=== PATIENT | male | born 1940 | race Caucasian/White ===

== ENCOUNTER 2020-08-13 09:24 | Observation (INO) ==
--- NOTE | 2020-08-13 09:44 | Emergency Department Note ---
Impression & Plan Abdominal pain, lower, Constipation, Proctitis ED Provider Note INFORMANT: Patient ED PROVIDER(S): Yuri Lindquist MD CHIEF COMPLAINT: Lower abdominal pain PLAN: Disposition: Admitted Condition: Good Outpatient prescription management: none Referral: None MEDICAL DECISION MAKING: Patient presented due to severe abdominal pain. He also noted constipation. He was given a dose of IV fentanyl. Blood work was obtained. He was found to have an unremarkable CBC and chemistry panel. He was sent for CT imaging and was found to have severe fecal retention. Subtle signs of a stercoral proctitis. The patient underwent a manual disimpaction by me. The patient was very uncomfortable. He did receive a second dose of IV fentanyl for this. I did use some viscous lidocaine in addition to the surgical lube. This helped well with his pain. After the disimpaction he underwent a soapsuds enema. The patient did not have much result. A second enema was given. He was complaining of mild amount of rectal pain. He did receive an additional dose of IV fentanyl. Unfortunately a second enema was minimally successful. He was still very uncomfortable. I discussed possible management options with him. Given the level of discomfort and lack of success with the enemas inpatient treatment was recommended and patient was in agreement. He was still complaining of continued lower abdominal pain and rectal pain. He was given a dose of IV Dilaudid. Consultation was made with the [facility]. The patient was evaluated by the team in the ER and admitted for further management. Triage Nursing notes reviewed and agree them. Vital Signs: reviewed and remarkable for no significant abnormalities Additional history obtained from the patient's . Differential diagnosis: Functional constipation, impaction, obstruction, volvulus, metabolic abnormality, infection, neurologic, as well as other pathologies. Diagnostics interpreted by me: ECG: Rate: 69 Rhythm:Normal sinus [place]:Normal QRS:Normal ST segements:No elevation or depression Other:No PACs or PVCs Cardiac Monitoring: Cardiac monitoring ordered by me: The patient was placed on continuous cardiac monitoring and observed. It revealed a normal sinus rhythm at 75 beats per minute without ectopy or evidence of dysrhythmia. Imaging studies: CT scan the abdomen pelvis reveals severe fecal retention and constipation. Postsurgical changes noted. I refer you to the EMR for further details. HPI: The patient is a 80 year old male who presents to the Emergency Room with complaints of lower abdominal pain. This started a week ago and is worsening over the last two days. The patient also notes the following associated symptoms, constipation. The patient has found no relieving factors. Current pain is rated as 8/10. EMS gave 4mg of zofran and 15mg of toradol with minimal effect. Pt denies LOC, headache, fevers, chills, diaphoresis, visual changes, neck pain, chest pain, breathing difficulties, nausea, vomiting, back pain, melena, hematochezia, urinary symptoms, numbness, weakness, lymphadenopathy, rash, or other complaints. ROS: See above HPI for pertinent positives & negatives. A total of 10 systems reviewed and were otherwise negative. PAST MEDICAL HISTORY:See Below , crohn's, [place] PAST SURGICAL HISTORY:See Below, colon resection FAMILY HISTORY:See Below SOCIAL HISTORY:See Below, quit smoking HOME MEDICATIONS:See Below ALLERGIES:See Below VITALS:See Below PHYSICAL EXAMINATION: GENERAL: Awake, alert, uncomfortable-appearing, in no distress HENT: Normocephalic, atraumatic. Oropharynx unremarkable. EYES: Normal conjunctiva. Sclera non-icteric. NECK: Inspection normal. Non-tender. Supple. No nuchal rigidity. FROM. No masses. RESPIRATORY: Clear to auscultation. No wheezes. No rales. Normal respiratory effort. CARDIAC: Normal rate. Normal rhythm. No murmurs. No rubs. Extremities warm and well perfused. Pulses equal. No JVD. GI: Soft, mildly distended. Lower tenderness to palpation. No rebound or guarding. No masses. RECTAL: Deferred. MUSCULOSKELETAL: Atraumatic. Chest examination reveals no tenderness. The back is symmetrical on inspection without obvious abnormality. There is no CVA tenderness to palpation. No joint edema. LOWER EXTREMITIES: Calves are equal size bilaterally and non-tender. No edema. No discoloration. NEURO: Normal sensorium. No sensory or motor deficits noted. SKIN: No rash or jaundice noted. PROCEDURE: Disimpaction: Risks and benefits for manual disimpaction discussed. Patient was in agreement. Patient prepped in standard fashion. Patient underwent manual disimpaction by [place] with nurse credit report checker without complication. Yuri Lindquist MD Past Med/Surg History Medical History CAD (coronary artery disease) August, during which time he was cared for in [place] and underwent coronary intervention of the left anterior descending coronary artery with 2 areas stented, both the proximal and mid LAD with drug-eluting stents. He also had PTCA of the first diagonal branch at that time. A residual 70% mid right coronary artery stenosis and 30% circumflex stenosis was also present. 12/04/2012 - vfib arrest, defib x 3, along with CPRO, cardiac cath previous LAD stents patent, underwent BMS to culprit RCA stenosis CKD (chronic kidney disease) stage 3, GFR 30-59 ml/min COPD (chronic obstructive pulmonary disease) Crohn's disease Depression Duodenal ulcer GERD (gastroesophageal reflux disease) Glaucoma Hereditary and idiopathic neuropathy History of ventricular fibrillation 12/04/2012 - vfib arrest, defib x 3, along with CPRO, cardiac cath previous LAD stents patent, underwent BMS to culprit RCA stenosis HLD (hyperlipidemia) HTN (hypertension) Nephrolithiasis Pernicious anemia Surgical History History of appendectomy History of cholecystectomy History of coronary artery balloon dilation WILFREDO 09/2011 History of extraction of renal calculus History of inguinal hernia repair History of resection of small bowel 2/2 to Crohn's, dx 1981, resection of terminal ileum for medically unresponsive obstruction 1985; 1991; 1993 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 Family History Mother Alzheimer disease Brother Diabetes Hypertension Father Heart disease Other Cancer Social History Smoking Status: Former smoker Years Smoked: 40; Smoking End Date: 09/28/2011; Hx Alcohol Use: No Hx Substance Use: No Preferred Language: [place] marital status: Current Living Situation: Spouse Feels Safe at Home: Yes Allergies Allergies Allergy/AdvReac Type Severity Reaction Status Date / Time latex Allergy RASH Verified 08/13/20 10:24 Iodinated Contrast Media AdvReac Mild HOT,SHAKEY Verified 08/13/20 10:24 Home Meds Home Medications Medication Instructions Recorded Confirmed albuterol sulfate 0.63 mg INHALATION QID PRN 08/13/20 08/13/20 aspirin [Aspir-81] 81 mg PO DAILY 08/13/20 08/13/20 carvedilol 3.125 mg PO DAILY 08/13/20 08/13/20 cyanocobalamin (vitamin B-12) 1,000 mcg IM Q4WK 08/13/20 08/13/20 ipratropium-albuterol [Combivent 1 puff INHALATION QID 08/13/20 08/13/20 Respimat] lisinopril 10 mg PO DAILY 08/13/20 08/13/20 nitroglycerin 0.4 mg SUBLINGUAL UD 08/13/20 08/13/20 omeprazole 20 mg PO DAILY 08/13/20 08/13/20 rosuvastatin 5 mg PO DAILY 08/13/20 08/13/20 Results & Data (ED) Vital Signs Vital Signs - 24 hr 08/13/20 09:31 08/13/20 11:54 Temperature 36.8 C Temperature Source Oral Pulse Rate 88 Pulse Rate [Apical] 94 H Pulse Rhythm Regular Pulse Rhythm [Apical] Regular Respiratory Rate 17 18 Respiratory Effort / Characteristics Non-Labored Spontaneous Respiratory Depth Normal Respiratory Pattern Regular Blood Pressure 175/77 H Blood Pressure [Right Arm] 155/86 H Blood Pressure Mean 109 Blood Pressure Mean [Right Arm] 109 Blood Pressure Position [Right Arm] Sitting Pulse Oximetry 92 92 Oxygen Delivery Method Room Air Room Air Sepsis Recent Fever Within 48 Hours No Sepsis New/Unexplained Change in Mental Status No Sepsis Action Taken by Nursing No Action Required Laboratory Data Result diagrams: 08/13/20 08:53 08/13/20 08:53 Lab Results 08/13/20 08/13/20 08/13/20 Range/Units 08:53 08:53 08:53 WBC 10.27 (4.8-10.8) K/uL RBC 4.32 L (4.7-6.1) M/uL Hgb 14.7 (14.0-18.0) g/dL Hct 44.1 (42-52) % MCV 102.1 H (80-100) fL MCH 34.0 (25-34) pg MCHC 33.3 (32-36) g/dL RDW Std Deviation 50.5 H (36.4-46.3) fL RDW Coeff of Dari 13.3 (11.5-14.5) % Plt Count 242 (130-400) K/uL MPV 10.5 H (7.4-10.4) fL Immature Gran % (Auto) 0.1 % Neut % (Auto) 65.2 % Lymph % (Auto) 24.3 % Dolores % (Auto) 8.2 % Eos % (Auto) 1.7 % Baso % (Auto) 0.5 % Neut # (Auto) 6.70 H (1.4-6.5) K/uL Lymph # (Auto) 2.50 (1.2-3.4) K/uL [place] # (Auto) 0.84 H (0.11-0.59) K/uL Eos # (Auto) 0.17 (0-0.5) K/uL Baso # (Auto) 0.05 (0-0.2) K/uL Immature Gran # (Auto) 0.01 (0.00-0.02) K/uL Sodium 140 (136-145) mmol/L Potassium 4.1 (3.5-5.1) mmol/L Chloride 104 (98-107) mmol/L Carbon Dioxide 29 (21-32) mmol/L Anion Gap 7.0 (3-11) BUN 18 (7-18) mg/dl Creatinine 1.24 (0.6-1.4) mg/dl Est Cr Clr Drug Dosing Not Reportable Est GFR ( Amer) 64.1 ml/min Est GFR (Non-Af Amer) 55.3 ml/min BUN/Creatinine Ratio 14.5 (10-20) Glucose 116 H (70-99) mg/dl Calcium 9.4 (8.5-10.1) mg/dl Total Bilirubin 0.7 (0.2-1) mg/dl AST 13 L (15-37) U/L ALT 18 (12-78) U/L Alkaline Phosphatase 75 (45-117) U/L Total Protein 7.2 (6.4-8.2) gm/dl Albumin 3.9 (3.4-5.0) gm/dl Globulin 3.3 (2.5-4.0) gm/dl Albumin/Globulin Ratio 1.2 (0.9-2) Lipase 148 (73-393) U/L Procalcitonin < 0.05 (0-0.5) ng/ml Administered Medications Acetaminophen (Acetaminophen 1000 Mg/100 Ml Iv) 1,000 mg IV Q8H KEVAN Stop: 08/16/20 14:59 Last Admin: 08/13/20 15:18 Dose: 1,000 mg Documented by: [id number] Sodium Chloride (Nss 1000ml) 1,000 mls @ 80 mls/hr IV .[id number] KEVAN Stop: 08/14/20 05:44 Last Admin: 08/13/20 17:57 Dose: 80 mls/hr Documented by: [id number] Ceftriaxone Sodium 1,000 mg/ (Dextrose) 50 mls @ 100 mls/hr IV Q24H KEVAN; Protocol Stop: 08/18/20 17:14 Last Infusion: 08/13/20 18:31 Dose: 0 mls/hr Documented by: [id number] Admin: 08/13/20 17:58 Dose: 100 mls/hr Documented by: [id number] Discontinued Medications Cyanocobalamin (Cyanocobalamin 1000 Mcg/Ml Vial) 1,000 mcg IM ONE ONE Stop: 08/13/20 17:16 Last Admin: 08/13/20 17:57 Dose: 1,000 mcg Documented by: [id number] Fentanyl Citrate (Fentanyl Citrate 100 Mcg/2 Ml Vial) 50 mcg IV Q15M PRN PRN Reason: Pain Stop: 08/27/20 09:43 Last Admin: 08/13/20 13:23 Dose: 50 mcg Documented by: [id number] Admin: 08/13/20 10:49 Dose: 50 mcg Documented by: [id number] Admin: 08/13/20 09:51 Dose: 50 mcg Documented by: [id number] Hydromorphone HCl (Hydromorphone Inj 0.5 Mg/0.5 Ml Syr) 0.5 mg IV NOW STA Stop: 08/13/20 14:00 Last Admin: 08/13/20 14:10 Dose: 0.5 mg Documented by: [id number] Sodium Chloride (Nss 1000ml) 1,000 mls @ 125 mls/hr IV .Q8H STA Stop: 08/13/20 17:45 Last Infusion: 08/13/20 13:44 Dose: 0 mls/hr Documented by: [id number] Admin: 08/13/20 09:52 Dose: 125 mls/hr Documented by: [id number] Lidocaine HCl (Lidocaine Hcl Viscous Soln 2% 15 Ml Udc) Confirm Administered Dose 15 ml .ROUTE .[employer] ONE Stop: 08/13/20 10:48 Last Admin: 08/13/20 10:49 Dose: 15 ml Documented by: [id number] Polyethylene Glycol (Polyethylene (Miralax) 17 Gm Pack) 17 gm PO NOW STA Stop: 08/13/20 15:09 Last Admin: 08/13/20 15:44 Dose: 17 gm Documented by: [id number] Imaging Data Radiologist's Impression: Abdomen/Pelvis CT 08/13/20 09:[address] WITHOUT CONTRAST CT DOSE: 244.81 mGy.cm HISTORY: Acute lower abdominal pain with history of inflammatory bowel disease and prior bowel resection. lower abd pain, hx of crohn's. SBO, colon resectio TECHNIQUE: Multiaxial CT images of the abdomen and pelvis were performed without contrast. A dose lowering technique was utilized adhering to the principles of ALARA. COMPARISON STUDY: None. FINDINGS: Coronary artery calcifications. Mild bibasilar mucous plugging with bronchial wall thickening. There is no pneumatosis or pneumoperitoneum. The unenhanced spleen, moderately atrophic pancreas, adrenal glands and liver appear unremarkable. The gallbladder wall is thickened and heterogeneous with ill- defined lobular morphology and calcifications. Trace pericholecystic edema. No biliary ductal dilation. There are 2 nonobstructing calculi of the right kidney measuring up to 5 mm. 7 mm nonobstructing calculus of the inferior pole left kidney. No ureteral calculi or hydronephrosis. Prostamegaly with central calcifications. The right inguinal hernia is present. The right anterior lateral aspect of the urinary bladder partially extends into the hernia sac. Calcified plaque of the abdominal aorta without aneurysm. No adenopathy. No bowel obstruction. Moderate to extensive fecal retention. This results in distention of the rectum. Mild perirectal stranding. Postoperative changes of right hemicolectomy with ileocolic anastomosis. The appendix appears surgically absent. Scattered small bowel air-fluid levels of the lower abdomen. No stricture, significant wall thickening or fibrous stenotic disease identified. Tiny fat filled periumbilical hernia. Right hip total joint arthroplasty. Severe left hip osteoarthritis. Demineralized appearance of the bones. Healed right- sided rib fractures anteriorly. There is no acute fracture identified. IMPRESSION: 1. Moderate to extensive fecal retention. There is distention of the rectum with mild perirectal stranding which may reflect associated stercoral proctitis. 2. No bowel obstruction or bowel wall thickening. 3. Postoperative changes of the right hemicolon suggestive of partial hemicolectomy with ileocolic anastomosis. 4. Nonobstructing bilateral nephrolithiasis. 5. Additional findings as above. ACT 112: Negative or not required by law. The above report was generated using voice recognition software. It may contain grammatical, syntax or spelling errors. Electronically signed by: Anastacio Pineda M.D. 08/13/2020 10:34 AM Discharge Plan Visit Data Chief Complaint: Abdominal Pain ED Provider: Yuri Lindquist Discharge Problem: Abdominal pain, lower, Constipation, Proctitis Patient Disposition: Admitted As Inpatient Discharge Instructions Interventions: ED Discharge Assessment Last Done: 08/13/20 16:33
[2020-08-13 09:45] LABS: Basophils # (auto) 0.05 K/uL (0-0.2); Basophils % (auto) 0.5 %; Eosinophils # (auto) 0.17 K/uL (0-0.5); Eosinophils % (auto) 1.7 %; Hematocrit (blood only) 44.1 % (42-52); Hemoglobin 14.7 g/dL (14.0-18.0); Immature Granulocytes # (auto) 0.01 K/uL (0.00-0.02); Immature Granulocytes % (auto) 0.1 %; Lymphocytes % (auto) 24.3 %; Mean Corpuscular Hgb Conc 33.3 g/dL (32-36); Mean Corpuscular Volume 102.1 fL (80-100); Mean Platelet Volume 10.5 fL (7.4-10.4); Monocytes # (auto) 0.84 K/uL (0.11-0.59); Monocytes % (auto) 8.2 %; Neutrophils % (auto) 65.2 %; Platelet Count 242 K/uL (130-400); RDW Coefficient of Variation 13.3 % (11.5-14.5); RDW Standard Deviation 50.5 fL (36.4-46.3); Red Blood Count 4.32 M/uL (4.7-6.1); White Blood Count 10.27 K/uL (4.8-10.8)
[2020-08-13] MEDS ORDERED: SODIUM CHLORIDE 0.9% 1000ML 1,000 ML IV STA (09:46)
[2020-08-13] MEDS: fentaNYL citrate 100 MCG/2 ML VIAL IV PRN ×3 (09:51→13:23)
[2020-08-13 10:05] LABS: Alanine Aminotransferase 18 U/L (12-78); Albumin Level 3.9 gm/dl (3.4-5.0); Aspartate Aminotransferase 13 U/L (15-37); BUN Creatinine Ratio 14.5 (10-20); Blood Urea Nitrogen 18 mg/dl (7-18); Calcium 9.4 mg/dl (8.5-10.1); Carbon Dioxide 29 mmol/L (21-32); Chloride 104 mmol/L (98-107); Est GFR (African American) 64.1 ml/min; Est GFR (Non-African American) 55.3 ml/min; Glucose 116 mg/dl (70-99); Lipase 148 U/L (73-393); Potassium 4.1 mmol/L (3.5-5.1); Sodium 140 mmol/L (136-145)
[2020-08-13 10:08] LABS: Albumin Globulin Ratio 1.2 (0.9-2); Alkaline Phosphatase 75 U/L (45-117); Bilirubin,Total 0.7 mg/dl (0.2-1); Globulin 3.3 gm/dl (2.5-4.0); Total Protein 7.2 gm/dl (6.4-8.2)
--- NOTE | 2020-08-13 10:35 | CT Scan Report ---
ABDOMEN AND PELVIS CT WITHOUT CONTRAST CT DOSE: 244.81 mGy.cm HISTORY: Acute lower abdominal pain with history of inflammatory bowel disease and prior bowel resect ion. lower abd pain, hx of crohn's. SBO, colon resectio TECHNIQUE: Multiaxial CT images of the abdomen and pelvis were performed without contrast. A dose lo wering technique was utilized adhering to the principles of ALARA. COMPARISON STUDY: None. FINDINGS: Coronary artery calcifications. Mild bibasilar mucous plugging with bronchial wall thickening. There is no pneumatosis or pneumoperitoneum. The unenhanced spleen, moderately atrophic pancreas, adrenal g lands and liver appear unremarkable. The gallbladder wall is thickened and heterogeneous with ill-def ined lobular morphology and calcifications. Trace pericholecystic edema. No biliary ductal dilation. There are 2 nonobstructing calculi of the right kidney measuring up to 5 mm. 7 mm nonobstructing calc ulus of the inferior pole left kidney. No ureteral calculi or hydronephrosis. Prostamegaly with centr al calcifications. The right inguinal hernia is present. The right anterior lateral aspect of the uri nary bladder partially extends into the hernia sac. Calcified plaque of the abdominal aorta without a neurysm. No adenopathy. No bowel obstruction. Moderate to extensive fecal retention. This results in distention of the rectum . Mild perirectal stranding. Postoperative changes of right hemicolectomy with ileocolic anastomosis. The appendix appears surgically absent. Scattered small bowel air-fluid levels of the lower abdomen. No stricture, significant wall thickening or fibrous stenotic disease identified. Tiny fat filled pe riumbilical hernia. Right hip total joint arthroplasty. Severe left hip osteoarthritis. Demineralized appearance of the bones. Healed right-sided rib fractures anteriorly. There is no acute fracture ingrid ntified. IMPRESSION: 1. Moderate to extensive fecal retention. There is distention of the rectum with mild perirectal stra nding which may reflect associated stercoral proctitis. 2. No bowel obstruction or bowel wall thickening. 3. Postoperative changes of the right hemicolon suggestive of partial hemicolectomy with ileocolic an astomosis. 4. Nonobstructing bilateral nephrolithiasis. 5. Additional findings as above. ACT 112: Negative or not required by law. The above report was generated using voice recognition software. It may contain grammatical, syntax o r spelling errors. Electronically signed by: Anastacio Pineda M.D. 08/13/2020 10:34 AM
[2020-08-13] MEDS ORDERED: LIDOCAINE HCL VISCOUS SOLN 2% 15 ML UDC ONE (10:47)
[2020-08-13] MEDS ORDERED: HYDROmorphone INJ 0.5 MG/0.5 ML SYR IV STA (13:59)
--- NOTE | 2020-08-13 14:26 | History & Physical Report ---
Date of Service August 13, 2020 Assessment & Plan (1) Fecal impaction in rectum: (2) Proctitis: This is a 80-year-old male who has significant past medical history of CAD, Crohn's disease status post small bowel resection currently in remission, HTN, HLD, CKD stage III, COPD, pernicious anemia on vitamin B12 injections who presents to ED with his secondary to being constipated for 5 days. Pt with fecal impaction and evidence of stercoral proctitis Discussed case with GI Admit to med tele administer miralax - will schedule BID Milk of molassess enema x 1 now avoid narcotics IVF clear liquid diet Per GI may need relistor if unable to resolve with above Abnormal UA empirically tx with IV rocephin await for culture CAD/HTN/HLD hx of Vfib arrest while off ASA for hip replacement follows Dr. Enriquez no cp/sob continue asa, statin, lisinopril and coreg CKD -3a bun/cr stable at 18 and 1.24 avoid nephrotoxic agents pt did receive dose of toradol in route to ED monitor renal fxn COPD no acute exacerbation former tobacco abuse continue combivent Hx of crohn's disease s/p surgical resection of ileum has been in remission and does not follow with GI regularly Pernicious anemia 2/2 to SB resection continue vit b12 injections, due for dose today H/H normal DVT ppx: SCDS/TEDS for now 2/2 to pt requiring manual manipulation of disimpaction consider chemical prophylaxis when able Dispo:med tele FULL CODE PCP: Dr. Miranda Pt was seen and examined in collaboration with Dr. Koehler, please see addendum History of Present Illness Chief Complaint: Constipated x 5 days. Primary Care Provider: Michell Miranda MD This is a 80-year-old male who has significant past medical history of CAD, Crohn's disease status post small bowel resection currently in remission, HTN, HLD, CKD stage III, COPD, pernicious anemia on vitamin B12 injections who presents to ED with his secondary to being constipated for 5 days. Patient complains of lower abdominal pain, low back pain as well as rectal pain. He said his last normal bowel movement was approximately 5 days ago on . A week prior to this he had experienced diarrhea for which he took Imodium for. Since then he has been unable to move his bowels. He has tried warm prune juice as well as milk of magnesia without result. He denies having similar symptoms in the past. He denies fever, chills, sweats, lightheadedness, dizziness, chest pain, shortness of breath, URI symptoms, nausea, vomiting, hematemesis, melena or hematochezia, dysuria, increased urgency or frequency with urination. Despite discomfort he has been able to tolerate a normal diet. He states, "I just cannot strain anymore." He currently complains of pain 8 out of 10. He states "what if they cannot get it out somebody just needs to get this out of me." In ED patient remained hemodynamically stable. His CBC and CMP were generally unremarkable. Urinalysis did reveal +1 leukocyte esterase, WBC as well as +[address] abdomen pelvis concerning for moderate to extensive fecal retention with distal distention of the rectum with mild perirectal stranding reflecting steroid coral proctitis. Postoperative changes of the right hemicolon suggestive of a partial hemicolectomy with ileocolic anastomosis was intact. There was no bowel obstruction or bowel wall thickening. In ED he was manually disimpacted minimally by ER provider as well as received 2 mineral oil enemas with minimal relief. Due to continued discomfort and unable to evacuate rectal vault patient was recommended for admission. Allergies Allergy/AdvReac Type Severity Reaction Status Date / Time latex Allergy RASH Verified 08/13/20 10:24 Iodinated Contrast Media AdvReac Mild HOT,SHAKEY Verified 08/13/20 10:24 Home Medications Medication Instructions Recorded Confirmed Type albuterol sulfate 0.63 mg INHALATION QID PRN 08/13/20 08/13/20 History aspirin [Aspir-81] 81 mg PO DAILY 08/13/20 08/13/20 History carvedilol 3.125 mg PO DAILY 08/13/20 08/13/20 History cyanocobalamin (vitamin B-12) 1,000 mcg IM Q4WK 08/13/20 08/13/20 History ipratropium-albuterol [Combivent 1 puff INHALATION QID 08/13/20 08/13/20 History Respimat] lisinopril 10 mg PO DAILY 08/13/20 08/13/20 History nitroglycerin 0.4 mg SUBLINGUAL UD 08/13/20 08/13/20 History omeprazole 20 mg PO DAILY 08/13/20 08/13/20 History rosuvastatin 5 mg PO DAILY 08/13/20 08/13/20 History Past Med/Surg History Medical History CAD (coronary artery disease) August, during which time he was cared for in [place] and underwent coronary intervention of the left anterior descending coronary artery with 2 areas stented, both the proximal and mid LAD with drug-eluting stents. He also had PTCA of the first diagonal branch at that time. A residual 70% mid right coronary artery stenosis and 30% circumflex stenosis was also present. 12/04/2012 - vfib arrest, defib x 3, along with CPRO, cardiac cath previous LAD stents patent, underwent BMS to culprit RCA stenosis CKD (chronic kidney disease) stage 3, GFR 30-59 ml/min COPD (chronic obstructive pulmonary disease) Crohn's disease Depression Duodenal ulcer GERD (gastroesophageal reflux disease) Glaucoma Hereditary and idiopathic neuropathy History of ventricular fibrillation 12/04/2012 - vfib arrest, defib x 3, along with CPRO, cardiac cath previous LAD stents patent, underwent BMS to culprit RCA stenosis HLD (hyperlipidemia) HTN (hypertension) Nephrolithiasis Pernicious anemia Surgical History History of appendectomy History of cholecystectomy History of coronary artery balloon dilation WILFREDO 09/2011 History of extraction of renal calculus History of inguinal hernia repair History of resection of small bowel 2/2 to Crohn's, dx 1981, resection of terminal ileum for medically unresponsive obstruction 1985; 1991; 1993 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 Family History Mother Alzheimer disease Brother Diabetes Hypertension Father Heart disease Other Cancer Social History Smoking Status: Former smoker Years Smoked: 40; Smoking End Date: 09/28/2011; Second Hand Exposure: No; Do You Dip or Chew Tobacco: No; Tobacco Cessation Education Requested by Patient: No Hx Alcohol Use: No Hx Substance Use: No Preferred Language: Irish 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 Koehler addendum for physical exam findings. Results & Data Results & Data ([facility]) Vital Signs (Past 12 Hours) Vital Signs Temp Pulse Pulse Resp BP BP Pulse Ox 08/13/20 11:54 94 H 18 155/86 H 92 08/13/20 09:31 36.8 C 88 17 175/77 H 92 Diagnostic Findings Abdomen/Pelvis CT 08/13/20 09:[address] WITHOUT CONTRAST CT DOSE: 244.81 mGy.cm HISTORY: Acute lower abdominal pain with history of inflammatory bowel disease and prior bowel resection. lower abd pain, hx of crohn's. SBO, colon resectio TECHNIQUE: Multiaxial CT images of the abdomen and pelvis were performed without contrast. A dose lowering technique was utilized adhering to the principles of ALARA. COMPARISON STUDY: None. FINDINGS: Coronary artery calcifications. Mild bibasilar mucous plugging with bronchial wall thickening. There is no pneumatosis or pneumoperitoneum. The unenhanced spleen, moderately atrophic pancreas, adrenal glands and liver appear unremarkable. The gallbladder wall is thickened and heterogeneous with ill- defined lobular morphology and calcifications. Trace pericholecystic edema. No biliary ductal dilation. There are 2 nonobstructing calculi of the right kidney measuring up to 5 mm. 7 mm nonobstructing calculus of the inferior pole left kidney. No ureteral calculi or hydronephrosis. Prostamegaly with central calcifications. The right inguinal hernia is present. The right anterior lateral aspect of the urinary bladder partially extends into the hernia sac. Calcified plaque of the abdominal aorta without aneurysm. No adenopathy. No bowel obstruction. Moderate to extensive fecal retention. This results in distention of the rectum. Mild perirectal stranding. Postoperative changes of right hemicolectomy with ileocolic anastomosis. The appendix appears surgically absent. Scattered small bowel air-fluid levels of the lower abdomen. No stricture, significant wall thickening or fibrous stenotic disease identified. Tiny fat filled periumbilical hernia. Right hip total joint arthroplasty. Severe left hip osteoarthritis. Demineralized appearance of the bones. Healed right- sided rib fractures anteriorly. There is no acute fracture identified. IMPRESSION: 1. Moderate to extensive fecal retention. There is distention of the rectum with mild perirectal stranding which may reflect associated stercoral proctitis. 2. No bowel obstruction or bowel wall thickening. 3. Postoperative changes of the right hemicolon suggestive of partial hemicolectomy with ileocolic anastomosis. 4. Nonobstructing bilateral nephrolithiasis. 5. Additional findings as above. ACT 112: Negative or not required by law. The above report was generated using voice recognition software. It may contain grammatical, syntax or spelling errors. Electronically signed by: Anastacio Pineda M.D. 08/13/2020 10:34 AM Medications Administered Fentanyl Citrate (Fentanyl Citrate 100 Mcg/2 Ml Vial) 50 mcg IV Q15M PRN PRN Reason: Pain Stop: 08/27/20 09:43 Last Admin: 08/13/20 13:23 Dose: 50 mcg Documented by: [id number] Admin: 08/13/20 10:49 Dose: 50 mcg Documented by: [id number] Admin: 08/13/20 09:51 Dose: 50 mcg Documented by: [id number] Sodium Chloride (Nss 1000ml) 1,000 mls @ 125 mls/hr IV .Q8H STA Stop: 08/13/20 17:45 Last Infusion: 08/13/20 13:44 Dose: 0 mls/hr Documented by: [id number] Admin: 08/13/20 09:52 Dose: 125 mls/hr Documented by: [id number] Discontinued Medications Lidocaine HCl (Lidocaine Hcl Viscous Soln 2% 15 Ml Udc) Confirm Administered Dose 15 ml .ROUTE .STK-MED ONE Stop: 08/13/20 10:48 Last Admin: 08/13/20 10:49 Dose: 15 ml Documented by: [id number] ECG Rate (beats per minute): 69 Rhythm: normal sinus COVID-19 Results Results COVID-19 Adm Lab Results: RBC 3.94 M/uL (4.7-6.1) L 08/14/20 WBC 8.58 K/uL (4.8-10.8) 08/14/20 Hgb 13.4 g/dL (14.0-18.0) L 08/14/20 Hct 39.4 % (42-52) L 08/14/20 Plt Count 187 K/uL (130-400) 08/14/20 Neutrophils (%) (Auto) 65.2 % 08/13/20 Lymphocytes (%) (Auto) 24.3 % 08/13/20 Monocytes # (Auto) 0.84 K/uL (0.11-0.59) H 08/13/20 Eosinophils # (Auto) 0.17 K/uL (0-0.5) 08/13/20 Immature Granulocyte % (Auto) 0.1 % 08/13/20 Neutrophils # (Auto) 6.70 K/uL (1.4-6.5) H 08/13/20 Lymphocytes # (Auto) 2.50 K/uL (1.2-3.4) 08/13/20 Monocytes # (Auto) 0.84 K/uL (0.11-0.59) H 08/13/20 Eosinophils # (Auto) 0.17 K/uL (0-0.5) 08/13/20 Basophils # (Auto) 0.05 K/uL (0-0.2) 08/13/20 Immature Granulocyte # (Auto) 0.01 K/uL (0.00-0.02) 08/13/20 Na 140 mmol/L (136-145) 08/14/20 K 4.0 mmol/L (3.5-5.1) 08/14/20 Cl 109 mmol/L (98-107) H 08/14/20 CO2 26 mmol/L (21-32) 08/14/20 Anion Gap 6.0 (3-11) 08/14/20 BUN 17 mg/dl (7-18) 08/14/20 Creatinine 1.05 mg/dl (0.6-1.4) 08/14/20 BUN/Creatinine Ratio 16.3 (10-20) 08/14/20 Glucose Level 70 mg/dl (70-99) 08/14/20 Ca 8.4 mg/dl (8.5-10.1) L 08/14/20 Phosphorus Level 2.3 mg/dl (2.5-4.9) L 08/14/20 Total Bilirubin 0.7 mg/dl (0.2-1) 08/13/20 AST/SGOT 13 U/L (15-37) L 08/13/20 ALT/SGPT 18 U/L (12-78) 08/13/20 Alkaline Phosphatase 75 U/L (45-117) 08/13/20 Total Protein 7.2 gm/dl (6.4-8.2) 08/13/20 Albumin 3.9 gm/dl (3.4-5.0) 08/13/20 Globulin 3.3 gm/dl (2.5-4.0) 08/13/20 Albumin/Globulin Ratio 1.2 (0.9-2) 08/13/20 Procalcitonin < 0.05 ng/ml (0-0.5) 08/13/20 COVID-19 PCR NEGATIVE (Negative) 08/13/20 Code Status & VTE Plan Code Status Full Code VTE Prophylaxis Plan VTE Prophylaxis will be ordered: Yes Supervising Physician Co-Signing Physician Notes Patient seen and examined by me, care coordinated with Liz Peoples PA-C, please refer to her note above for further detail. Patient is currently lying in bed, NAD, laying on a bedpan. Presented with fecal impaction, underwent disimpaction by ED provider, but still feels uncomfortable, and did not get relief. He otherwise denies any fevers, chills, chest pain, shortness of breath, sick contacts. He does take hydrocodone for hip pain,/severe osteoarthritis, mentions that he cannot undergo surgery due to his heart. He also took Imodium recently due to loose stools. Per his at the bedside, patient never took Imodium before. Patient is alert and oriented and answering questions appropriately. Heart sounds regular, lung sounds clear to auscultation bilaterally without any wheezing rhonchi or crackles. Abdomen soft, overall nontender to palpation. Patient moves extremities, there is no lower extremity edema. Currently laying on bedpan. Patient received enemas, will start him on MiraLAX twice daily, will discuss further with GI if cannot get relief. Pain control, will try to avoid opioids. Sp Koehler MD
[2020-08-13 14:53] LABS: Appearance Urine Clear (Clear); Bacteria Urine Automated 1+ (Negative); Bilirubin Urine Negative (Negative); Blood Urine Negative (Negative); Color Urine Yellow; Glucose Urine UA Negative (Negative); Ketones Urine Trace (Negative); Leukocyte Esterase Urine 1+ (Negative); Nitrite Urine Negative (Negative); Protein Urine Negative (Negative); RBC Urine Automated 0-4 /hpf (0-4); Specific Gravity Urine 1.015 (1.000-1.030); Urobilinogen Urine Negative (Negative)
[2020-08-13] MEDS ORDERED: POLYETHYLENE (MIRALAX) 17 GM PACK PO STA (15:08)
[2020-08-13] MEDS: ACETAMINOPHEN 1000 MG/100 ML IV IV SCH ×2 (15:18→23:03)
[2020-08-13 16:01] LABS: Magnesium 1.5 mg/dl (1.8-2.4)
[2020-08-13] MEDS ORDERED: ACETAMINOPHEN 325 MG TAB PO PRN (17:15)
[2020-08-13] MEDS ORDERED: MAGNESIUM HYDROXIDE SUSP 30 ML UDC PO PRN (17:15)
[2020-08-13] MEDS ORDERED: IPRATROPIUM BROMIDE/ALBUTEROL respimat INH INH SCH (17:15)
[2020-08-13] MEDS ORDERED: ALUMINUM/MAGNESIUM SUSP 30 ML UDC PO PRN (17:15)
[2020-08-13] MEDS ORDERED: SODIUM CHLORIDE 0.9% 1000ML 1,000 ML IV SCH (17:15)
[2020-08-13] MEDS ORDERED: CYANOCOBALAMIN 1000 MCG/ML VIAL IM ONE (17:15)
[2020-08-13] MEDS ORDERED: ONDANSETRON INJ 2 MG/ML 2 ML VIAL IV PRN (17:15)
[2020-08-13] MEDS ORDERED: POLYETHYLENE (MIRALAX) 17 GM PACK PO PRN (17:15)
[2020-08-13] MEDS ORDERED: cefTRIAXone SODIUM 1,000 MG in DEXTROSE 5% 50 ML IV SCH (18:00)
--- NOTE | 2020-08-13 18:00 | Electrocardiogram Report ---
Test Reason : Blood Pressure : / mmHG Vent. Rate : 069 BPM Atrial Rate : 069 BPM P-R Int : 152 ms QRS Dur : 086 ms QT Int : 378 ms P-R-T Axes : 086 079 039 degrees QTc Int : 405 ms Normal sinus rhythm with sinus arrhythmia Normal ECG When compared with ECG of 09-NOV-2015 22:37, No significant change was found Confirmed by Tony Valencia ([id number]) on 08/13/2020 5:59:54 PM Referred By: ED Confirmed By:Zackary Valencia
[2020-08-13] MEDS: Ipratropium HFA Inhaler (Combivent Respimat P&T Subs) INH SCH ×2 (19:29→22:34)
[2020-08-13] MEDS: Albuterol HFA 8 GM Inhaler (Combivent Respimat P&T Subs) INH SCH ×2 (19:29→22:33)
[2020-08-13] MEDS: POLYETHYLENE (MIRALAX) 17 GM PACK PO SCH (23:03)
[2020-08-14] MEDS: MoRPHine SULFATE 2 MG/ML CARP IV PRN ×4 (02:24→14:55)
[2020-08-14] MEDS: Ipratropium HFA Inhaler (Combivent Respimat P&T Subs) INH SCH ×3 (07:10→15:22)
[2020-08-14] MEDS: Albuterol HFA 8 GM Inhaler (Combivent Respimat P&T Subs) INH SCH ×3 (07:10→15:23)
--- NOTE | 2020-08-14 07:33 | Hospitalist Progress Note ---
Date of Service August 14, 2020 Assessment & Plan (1) Fecal impaction in rectum: (2) Proctitis: This is a 80-year-old male who has significant past medical history of CAD, Crohn's disease status post small bowel resection currently in remission, HTN, HLD, CKD stage III, COPD, pernicious anemia on vitamin B12 injections who presents to ED with his secondary to being constipated for 5 days. Pt with fecal impaction and evidence of stercoral proctitis Discussed case with GI administer miralax - will schedule BID Milk of molassess enema x 1 now on admission avoid narcotics IVF clear liquid diet Per GI may need relistor if unable to resolve with above Patient had a large bowel movement this morning, feeling much better, denies any pain, inquiring about going home Seen by GI today, recommend MiraLAX twice a day, no contraindication to discharge Pt was offered outpt colonoscopy, which pt refused Patient to follow-up with primary care doctor Hypomagnesemia Magnesium level 1.5-1.6 We will replace orally and IV We will discharge on magnesium supplement, and have him follow-up with his PCP Abnormal UA empirically tx with IV rocephin await for culture Patient has no symptoms of dysuria, possibly secondary to severe constipation Recommend to repeat UA with PCP if indicated, stop antibiotics CAD/HTN/HLD hx of Vfib arrest while off ASA for hip replacement follows Dr. Enriquez no cp/sob continue asa, statin, lisinopril and coreg CKD -3a bun/cr stable at 18 and 1.24 avoid nephrotoxic agents pt did receive dose of toradol in route to ED monitor renal fxn COPD no acute exacerbation former tobacco abuse continue combivent Hx of crohn's disease s/p surgical resection of ileum has been in remission and does not follow with GI regularly Pernicious anemia 2/2 to SB resection continue vit b12 injections, due for dose today H/H normal DVT ppx: SCDS/TEDS for now 2/2 to pt requiring manual manipulation of disimpaction consider chemical prophylaxis when able Dispo:med tele FULL CODE PCP: Dr. Miranda Admission and Anticipated Discharge Date Admission Date: August 13, 2020 Subjective Patient seen in follow-up of fecal impaction in rectum, concern for stercoral proctitis Patient had large bowel movement this morning, he is already feeling much better. He is alert oriented, denies any fevers chills chest pain shortness of breath Denies any abdominal pain, or any pain in general He is inquiring about going home Was seen by GI this morning, they recommend MiraLAX twice a day, and reported no contraindication to discharge Review of Systems Review of Systems: All systems reviewed & are unremarkable except as noted in HPI & below Constitutional: no fever and no chills Respiratory: no cough and no dyspnea Cardiovascular: no chest pain and no palpitations Gastrointestinal: no abdominal pain and no vomiting Physical Exam Constitutional: WD/WN, vitals as above + thin Eyes: PERRL, conjunctivae normal, anicteric sclerae ENMT: external ear and nose normal, oropharynx normal Neck: trachea midline, no thyromegaly normal visual inspection Respiratory: normal respiratory effort, lungs clear to auscultation Cardiovascular: RRR, no murmur, no edema Chest (Breasts): Chest: normal inspection of chest Gastrointestinal (Abdomen): normal bowel sounds, soft, nontender, no hepatosplenomegaly Percussion/Palpation: abdomen nontender, no guarding and abdomen not rigid Musculoskeletal: no cyanosis or clubbing, extremities motor strength 5/5 Skin: no rashes, warm and dry Neurologic: PERRL, EOMI, accommodation nl, no face palsy, no dysarthria moves all extremities Psychiatric: A+Ox3, euthymic affect Results & Data Results & Data ([facility]) Vital Signs (Past 12 Hours) Vital Signs Temp Pulse Pulse Resp BP BP Pulse Ox 08/14/20 07:10 78 20 95 08/14/20 03:35 37.0 C 69 20 162/82 H 95 08/14/20 00:40 73 08/13/20 22:13 37.1 C 82 20 164/74 H 92 08/13/20 19:36 37.6 C H 80 16 170/70 H 93 Laboratory Results 08/14/20 08/14/20 08/13/20 Range/Units 07:58 07:58 15:37 WBC 8.58 (4.8-10.8) K/uL RBC 3.94 L (4.7-6.1) M/uL Hgb 13.4 L (14.0-18.0) g/dL Hct 39.4 L (42-52) % MCV 100.0 (80-100) fL MCH 34.0 (25-34) pg MCHC 34.0 (32-36) g/dL RDW Std Deviation 48.6 H (36.4-46.3) fL RDW Coeff of Dari 13.3 (11.5-14.5) % Plt Count 187 (130-400) K/uL MPV 9.6 (7.4-10.4) fL Sodium 140 (136-145) mmol/L Potassium 4.0 (3.5-5.1) mmol/L Chloride 109 H (98-107) mmol/L Carbon Dioxide 26 (21-32) mmol/L Anion Gap 6.0 (3-11) BUN 17 (7-18) mg/dl Creatinine 1.05 (0.6-1.4) mg/dl Est Cr Clr Drug Dosing 41.7 ml/min Est GFR ( Amer) 78.4 ml/min Est GFR (Non-Af Amer) 67.7 ml/min BUN/Creatinine Ratio 16.3 (10-20) Glucose 70 (70-99) mg/dl Lactate (0.4-2.0) mmol/L Calcium 8.4 L (8.5-10.1) mg/dl Phosphorus 2.3 L 2.0 L (2.5-4.9) mg/dl Magnesium 1.6 L 1.5 L (1.8-2.4) mg/dl Procalcitonin (0-0.5) ng/ml Urine Color Urine Appearance (Clear) Urine pH (4.5-7.5) Ur Specific [place] (1.000-1.030) Urine Protein (Negative) Urine Glucose (UA) (Negative) Urine Ketones (Negative) Urine Blood (Negative) Urine Nitrite (Negative) Urine Bilirubin (Negative) Urine Urobilinogen (Negative) Ur Leukocyte Esterase (Negative) Urine WBC (Auto) (0-5) /hpf Urine RBC (Auto) (0-4) /hpf U Hyaline Cast (Auto) (0-5) /lpf U Epithel Cells (Auto) (0-5) /lpf Urine Bacteria (Auto) (Negative) COVID-19 Eval Order SARS-CoV-2 (PCR) (Negative) 08/13/20 08/13/20 08/13/20 Range/Units 15:37 14:44 14:44 WBC (4.8-10.8) K/uL RBC (4.7-6.1) M/uL Hgb (14.0-18.0) g/dL Hct (42-52) % MCV (80-100) fL MCH (25-34) pg MCHC (32-36) g/dL RDW Std Deviation (36.4-46.3) fL RDW Coeff of Dari (11.5-14.5) % Plt Count (130-400) K/uL MPV (7.4-10.4) fL Sodium (136-145) mmol/L Potassium (3.5-5.1) mmol/L Chloride (98-107) mmol/L Carbon Dioxide (21-32) mmol/L Anion Gap (3-11) BUN (7-18) mg/dl Creatinine (0.6-1.4) mg/dl Est Cr Clr Drug Dosing ml/min Est GFR ( Amer) ml/min Est GFR (Non-Af Amer) ml/min BUN/Creatinine Ratio (10-20) Glucose (70-99) mg/dl Lactate 1.2 (0.4-2.0) mmol/L Calcium (8.5-10.1) mg/dl Phosphorus (2.5-4.9) mg/dl Magnesium (1.8-2.4) mg/dl Procalcitonin (0-0.5) ng/ml Urine Color Urine Appearance (Clear) Urine pH (4.5-7.5) Ur Specific [place] (1.000-1.030) Urine Protein (Negative) Urine Glucose (UA) (Negative) Urine Ketones (Negative) Urine Blood (Negative) Urine Nitrite (Negative) Urine Bilirubin (Negative) Urine Urobilinogen (Negative) Ur Leukocyte Esterase (Negative) Urine WBC (Auto) (0-5) /hpf Urine RBC (Auto) (0-4) /hpf U Hyaline Cast (Auto) (0-5) /lpf U Epithel Cells (Auto) (0-5) /lpf Urine Bacteria (Auto) (Negative) COVID-19 Eval Order Covid19 at [facility] SARS-CoV-2 (PCR) NEGATIVE (Negative) 08/13/20 08/13/20 Range/Units 14:22 08:53 WBC (4.8-10.8) K/uL RBC (4.7-6.1) M/uL Hgb (14.0-18.0) g/dL Hct (42-52) % MCV (80-100) fL MCH (25-34) pg MCHC (32-36) g/dL RDW Std Deviation (36.4-46.3) fL RDW Coeff of Dari (11.5-14.5) % Plt Count (130-400) K/uL MPV (7.4-10.4) fL Sodium (136-145) mmol/L Potassium (3.5-5.1) mmol/L Chloride (98-107) mmol/L Carbon Dioxide (21-32) mmol/L Anion Gap (3-11) BUN (7-18) mg/dl Creatinine (0.6-1.4) mg/dl Est Cr Clr Drug Dosing ml/min Est GFR ( Amer) ml/min Est GFR (Non-Af Amer) ml/min BUN/Creatinine Ratio (10-20) Glucose (70-99) mg/dl Lactate (0.4-2.0) mmol/L Calcium (8.5-10.1) mg/dl Phosphorus (2.5-4.9) mg/dl Magnesium (1.8-2.4) mg/dl Procalcitonin < 0.05 (0-0.5) ng/ml Urine Color Yellow Urine Appearance Clear (Clear) Urine pH 5.0 (4.5-7.5) Ur Specific [place] 1.015 (1.000-1.030) Urine Protein Negative (Negative) Urine Glucose (UA) Negative (Negative) Urine Ketones Trace H (Negative) Urine Blood Negative (Negative) Urine Nitrite Negative (Negative) Urine Bilirubin Negative (Negative) Urine Urobilinogen Negative (Negative) Ur Leukocyte Esterase 1+ H (Negative) Urine WBC (Auto) 10-30 H (0-5) /hpf Urine RBC (Auto) 0-4 (0-4) /hpf U Hyaline Cast (Auto) 1-5 (0-5) /lpf U Epithel Cells (Auto) 5-10 H (0-5) /lpf Urine Bacteria (Auto) 1+ H (Negative) COVID-19 Eval Order SARS-CoV-2 (PCR) (Negative) Medications Administered Current Inpatient Medications Acetaminophen (Acetaminophen 1000 Mg/100 Ml Iv) 1,000 mg IV Q8H KEVAN Stop: 08/16/20 14:59 Last Admin: 08/13/20 23:03 Dose: 1,000 mg Documented by: Acetaminophen (Acetaminophen 325 Mg Tab) 650 mg PO Q4H PRN PRN Reason: Pain or Fever Stop: 09/12/20 17:14 Al Hydrox/Mg Hydrox/Simethicone (Aluminum/Magnesium Susp 30 Ml Udc) 15 ml PO Q4H PRN PRN Reason: Dyspepsia Stop: 09/12/20 17:14 Albuterol (Albuterol Hfa 8 Gm Inhaler (Combivent Respimat P&T Subs)) 1 puffs INH QIDR KEVAN Stop: 09/12/20 17:29 Last Admin: 08/14/20 07:10 Dose: 1 puffs Documented by: Aspirin (Aspirin 81 Mg Ectab) 81 mg PO DAILY KEVAN Stop: 09/13/20 08:59 Carvedilol (Carvedilol 3.125 Mg Tab) 3.125 mg PO DAILY KEVAN Stop: 09/13/20 08:59 Ceftriaxone Sodium 1,000 mg/ (Dextrose) 50 mls @ 100 mls/hr IV Q24H KEVAN; Protocol Stop: 08/18/20 17:14 Last Infusion: 08/13/20 18:31 Dose: Infused Documented by: Ipratropium [place] (Ipratropium Hfa Inhaler (Combivent Respimat P&T Subs)) 1 puffs INH QIDR KEVAN Stop: 09/12/20 17:29 Last Admin: 08/14/20 07:10 Dose: 1 puffs Documented by: Lisinopril (Lisinopril 10 Mg Tab) 10 mg PO DAILY KEVAN Stop: 09/13/20 08:59 Magnesium Hydroxide (Magnesium Hydroxide Susp 30 Ml Udc) 30 ml PO Q12H PRN PRN Reason: Constipation Stop: 09/12/20 17:14 Morphine Sulfate (Morphine Sulfate 2 Mg/Ml Carp) 2 mg IV Q3H PRN PRN Reason: Pain Stop: 08/27/20 18:18 Last Admin: 08/14/20 02:24 Dose: 2 mg Documented by: Ondansetron HCl (Ondansetron Inj 2 Mg/Ml 2 Ml Vial) 4 mg IV Q6H PRN PRN Reason: Nausea Stop: 09/12/20 17:14 Polyethylene Glycol (Polyethylene (Miralax) 17 Gm Pack) 17 gm PO DAILY PRN PRN Reason: Constipation Stop: 09/12/20 17:14 Polyethylene Glycol (Polyethylene (Miralax) 17 Gm Pack) 17 gm PO BID [facility] Stop: 09/12/20 20:59 Last Admin: 08/13/20 23:03 Dose: 17 gm Documented by: Rosuvastatin Calcium (Rosuvastatin Calcium 5 Mg Tab) 5 mg PO DAILY [facility] Stop: 09/13/20 08:59
[2020-08-14] MEDS: ACETAMINOPHEN 1000 MG/100 ML IV IV SCH (07:45)
[2020-08-14 08:15] LABS: Hematocrit (blood only) 39.4 % (42-52); Hemoglobin 13.4 g/dL (14.0-18.0); Mean Platelet Volume 9.6 fL (7.4-10.4); Platelet Count 187 K/uL (130-400); RDW Coefficient of Variation 13.3 % (11.5-14.5); RDW Standard Deviation 48.6 fL (36.4-46.3); Red Blood Count 3.94 M/uL (4.7-6.1); White Blood Count 8.58 K/uL (4.8-10.8)
[2020-08-14 08:43] LABS: BUN Creatinine Ratio 16.3 (10-20); Calcium 8.4 mg/dl (8.5-10.1); Creatinine Clr Calc Pharmacy 41.7 ml/min; Est GFR (African American) 78.4 ml/min; Est GFR (Non-African American) 67.7 ml/min; Magnesium 1.6 mg/dl (1.8-2.4); Phosphorus 2.3 mg/dl (2.5-4.9)
[2020-08-14] MEDS ORDERED: ASPIRIN 81 MG ECTAB PO SCH (09:00)
[2020-08-14] MEDS ORDERED: carvediloL 3.125 MG TAB PO SCH (09:00)
[2020-08-14] MEDS ORDERED: lisinopril 10 MG TAB PO SCH (09:00)
[2020-08-14] MEDS ORDERED: ROSUVASTATIN CALCIUM 5 MG TAB PO SCH (09:00)
[2020-08-14] MEDS: POLYETHYLENE (MIRALAX) 17 GM PACK PO SCH (09:33)
--- NOTE | 2020-08-14 10:13 | Gastrointestinal Consultation ---
Date of Consultation August 14, 2020 Assessment & Plan (1) Fecal impaction in rectum: (2) Crohn's disease: (3) Proctitis: Pt is a 80 y/o male w hx of Crohn's disease s/p R hemicolectomy w ileocolonic anastomosis x 20 yrs ago currently not on meds; admitted w constipation w CT signs of stercoral proctitis. He takes Hydrocodone at home for chronic hip/back pain. He had a large BM after enemas and Miralax. Feels well now and ready to go home. - Regular, heart healthy diet - No contraindication for DC home today - Recommend him be on daily bowel regimen such as Miralax 17g daily to BID while on narcotics - He had refused future evals with colonoscopy Supervising Physician Co-Signing Physician Notes Late entry: Patient was [place] and examined on 08/14 with CONCHITA Osborn whose note reflects our findings and plan. chronic constipation. Stercoral colitis. Bowel regimen. Patient feeling better. Will need outpatient bowel regimen. History of Present Illness Reason for Consultation: Stercoral proctitis, fecal impaction Requesting Physician: Dr. Bro Koehler Attending Physician: Dr. Ashley Mims History of Present Illness Pt is a 80 y/o male who presented yesterday w c/o constipation, no BM x 5 days. Hx of Crohn's disease s/p R hemicolectomy w ileocolonic anastomosis, and hasn't been on meds since surgery x 20 yrs ago. He takes Hydrocodone for hip/back pain. He denies any fever, chills, n/v. Was having lower abd pain & rectal pressure w the constipation. Tried prune juice, Milk of Magnesium at home w/o relief. CT abd/pelvis on admission showed fecal retention w distension of rectum and mild perirectal stranding likely stercoral proctitis. He denies rectal bleeding. In ED digital disimpaction tried w minimal relief. He received enemas, Miralax overnight and reports he had large BM this AM. He feels much better, wants to go home today. Allergies Allergy/AdvReac Type Severity Reaction Status Date / Time latex Allergy RASH Verified 08/13/20 10:24 Iodinated Contrast Media AdvReac Mild HOT,SHAKEY Verified 08/13/20 10:24 Home Medications Medication Instructions Recorded Confirmed Type Combivent Respimat 1 puff INHALATION QID 08/13/20 08/13/20 History albuterol sulfate 0.63 mg INHALATION QID PRN 08/13/20 08/13/20 History aspirin 81 mg PO DAILY 08/13/20 08/13/20 History carvedilol 3.125 mg PO DAILY 08/13/20 08/13/20 History cyanocobalamin (vitamin B-12) 1,000 mcg IM Q4WK 08/13/20 08/13/20 History lisinopril 10 mg PO DAILY 08/13/20 08/13/20 History nitroglycerin 0.4 mg SUBLINGUAL UD 08/13/20 08/13/20 History omeprazole 20 mg PO DAILY 08/13/20 08/13/20 History rosuvastatin 5 mg PO DAILY 08/13/20 08/13/20 History magnesium oxide 400 mg PO QAM #30 tab 08/14/20 Rx polyethylene glycol 3350 [Miralax] 17 g PO BID #14 ea 08/14/20 Rx Patient History Medical History CAD (coronary artery disease) August, during which time he was cared for in [place] and underwent coronary intervention of the left anterior descending coronary artery with 2 areas stented, both the proximal and mid LAD with drug-eluting stents. He also had PTCA of the first diagonal branch at that time. A residual 70% mid right coronary artery stenosis and 30% circumflex stenosis was also present. 12/04/2012 - vfib arrest, defib x 3, along with CPRO, cardiac cath previous LAD stents patent, underwent BMS to culprit RCA stenosis CKD (chronic kidney disease) stage 3, GFR 30-59 ml/min COPD (chronic obstructive pulmonary disease) Crohn's disease Depression Duodenal ulcer GERD (gastroesophageal reflux disease) Glaucoma Hereditary and idiopathic neuropathy History of ventricular fibrillation 12/04/2012 - vfib arrest, defib x 3, along with CPRO, cardiac cath previous LAD stents patent, underwent BMS to culprit RCA stenosis HLD (hyperlipidemia) HTN (hypertension) Nephrolithiasis Pernicious anemia Surgical History History of appendectomy History of cholecystectomy History of coronary artery balloon dilation WILFREDO 09/2011 History of extraction of renal calculus History of inguinal hernia repair History of resection of small bowel 2/2 to Crohn's, dx 1981, resection of terminal ileum for medically unresponsive obstruction 1985; 1991; 1993 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 Family History Mother Alzheimer disease Brother Diabetes Hypertension Father Heart disease Other Cancer Social History Smoking Status: Former smoker Years Smoked: 40; Smoking End Date: 09/28/2011; Second Hand Exposure: No; Do You Dip or Chew Tobacco: No; Tobacco Cessation Education Requested by Patient: No Hx Alcohol Use: No Hx Substance Use: No Preferred Language: Romansh [employer] Required: No Beliefs That Will Affect Care: None marital status: Current Living Situation: Spouse Other Information That Helps Us Care for You: No Feels Safe at Home: Yes Safety Concerns: Feels Safe At This Time Assistive Devices: Denture - Upper and Denture - Lower Review of Systems Review of Systems: All systems reviewed & are unremarkable except as noted in HPI & below Physical Exam Constitutional: WD/WN, vitals as above well groomed, cooperative and comfortable Eyes: PERRL, conjunctivae normal, anicteric sclerae ENMT: external ear and nose normal, oropharynx normal Respiratory: normal respiratory effort, lungs clear to auscultation Cardiovascular: RRR, no murmur, no edema Gastrointestinal (Abdomen): normal bowel sounds, soft, nontender, no hepatosplenomegaly Skin: no rashes, warm and dry no jaundice Psychiatric: A+Ox3, euthymic affect Lymphatic: no lymphedema Results & Data ([facility]) Vital Signs (Past 12 Hours) Vital Signs Temp Pulse Pulse Resp BP Pulse Ox 08/14/20 07:10 78 20 95 08/14/20 07:00 37.0 C 72 18 162/73 H 93 08/14/20 03:35 37.0 C 69 20 162/82 H 95 08/14/20 00:40 73 08/13/20 22:13 37.1 C 82 20 164/74 H 92
[2020-08-14] MEDS ORDERED: MAGNESIUM OXIDE 400 MG TAB PO SCH (11:45)
[2020-08-14] MEDS ORDERED: MAGNESIUM SULFATE / D5W 1 GM/100 ML BAG IV ONE (11:45)
--- NOTE | 2020-08-14 12:09 | Discharge Summary ---
Date of Service August 14, 2020 Admission HPI Per Admitting Provider This is a 80-year-old male who has significant past medical history of CAD, Crohn's disease status post small bowel resection currently in remission, HTN, HLD, CKD stage III, COPD, pernicious anemia on vitamin B12 injections who presents to ED with his secondary to being constipated for 5 days. Patient complains of lower abdominal pain, low back pain as well as rectal pain. He said his last normal bowel movement was approximately 5 days ago on . A week prior to this he had experienced diarrhea for which he took Imodium for. Since then he has been unable to move his bowels. He has tried warm prune juice as well as milk of magnesia without result. He denies having similar symptoms in the past. He denies fever, chills, sweats, lightheadedness, dizziness, chest pain, shortness of breath, URI symptoms, nausea, vomiting, hematemesis, melena or hematochezia, dysuria, increased urgency or frequency with urination. Despite discomfort he has been able to tolerate a normal diet. He states, "I ju st cannot strain anymore." He currently complains of pain 8 out of 10. He states "what if they cannot get it out somebody just needs to get this out of me." In ED patient remained hemodynamically stable. His CBC and CMP were generally unremarkable. Urinalysis did reveal +1 leukocyte esterase, WBC as well as +[address] abdomen pelvis concerning for moderate to extensive fecal retention with distal distention of the rectum with mild perirectal stranding reflecting steroid coral proctitis. Postoperative changes of the right hemicolon suggestive of a partial hemicolectomy with ileocolic anastomosis was intact. There was no bowel obstruction or bowel wall thickening. In ED he was manually disimpacted minimally by ER provider as well as received 2 mineral oil enemas with minimal relief. Due to continued discomfort and unable to evacuate rectal vault patient was recommended for admission. Admission Exam Per Admitting Provider Constitutional: WD/WN, vitals as above + thin, uncomfortable due to pain, laying on a bedpan Eyes: PERRL, EOMI, normal, anicteric sclerae ENMT: external ear and nose normal, oropharynx normal Neck: normal visual inspection Respiratory: normal respiratory effort, lungs clear to auscultation Cardiovascular: RRR, no murmur, no edema Chest (Breasts): Chest: normal inspection of chest Gastrointestinal (Abdomen): normal bowel sounds, soft, nontender, no guarding and abdomen not rigid Musculoskeletal: no cyanosis or clubbing, extremities motor strength 5/5 Skin: no rashes, warm and dry Neurologic: PERRL, EOMI, no face palsy, no dysarthria moves all extremities Psychiatric: A+Ox3, euthymic affect Principal Diagnosis Severe constipation, fecal impaction in rectum, concern for stercoral proctitis Abnormal UA Hypomagnesemia Discharge Exam Constitutional WD/WN, vitals as above + thin Eyes PERRL, conjunctivae normal, anicteric sclerae ENMT external ear and nose normal, oropharynx normal Neck trachea midline, no thyromegaly normal visual inspection Respiratory normal respiratory effort, lungs clear to auscultation Cardiovascular RRR, no murmur, no edema Chest (Breasts) Chest: normal inspection of chest Gastrointestinal (Abdomen) normal bowel sounds, soft, nontender, no hepatosplenomegaly Percussion/Palpation: abdomen nontender, no guarding and abdomen not rigid Musculoskeletal no cyanosis or clubbing, extremities motor strength 5/5 Skin no rashes, warm and dry Neurologic PERRL, EOMI, accommodation nl, no face palsy, no dysarthria moves all extremities Psychiatric A+Ox3, euthymic affect Discharge Data Allergies Allergy/AdvReac Type Severity Reaction Status Date / Time latex Allergy RASH Verified 08/13/20 10:24 Iodinated Contrast Media AdvReac Mild HOT,SHAKEY Verified 08/13/20 10:24 Consultations 08/13/20 14:13 ED Decision to Admit Stat 08/13/20 14:20 Consult Gastroenterology Routine Ordered Studies 08/13/20 09:44 CT abd pelvis wo con Stat IMPRESSION: 1. Moderate to extensive fecal retention. There is distention of the rectum with mild perirectal stranding which may reflect associated stercoral proctitis. 2. No bowel obstruction or bowel wall thickening. 3. Postoperative changes of the right hemicolon suggestive of partial hemicolectomy with ileocolic anastomosis. 4. Nonobstructing bilateral nephrolithiasis. 5. Additional findings as above. Hospital Course (1) Fecal impaction in rectum: (2) Proctitis: This is a 80-year-old male who has significant past medical history of CAD, Crohn's disease status post small bowel resection currently in remission, HTN, HLD, CKD stage III, COPD, pernicious anemia on vitamin B12 injections who presents to ED with his secondary to being constipated for 5 days. Pt with fecal impaction and evidence of stercoral proctitis Discussed case with GI administer miralax - will schedule BID Milk of molassess enema x 1 now on admission avoid narcotics IVF clear liquid diet Per GI may need relistor if unable to resolve with above Patient had a large bowel movement this morning, feeling much better, denies any pain, inquiring about going home Seen by GI today, recommend MiraLAX twice a day, no contraindication to discharge Pt was offered outpt colonoscopy, which pt refused Patient to follow-up with primary care doctor Hypomagnesemia Magnesium level 1.5-1.6 We will replace orally and IV We will discharge on magnesium supplement, and have him follow-up with his PCP Abnormal UA empirically tx with IV rocephin await for culture Patient has no symptoms of dysuria, possibly secondary to severe constipation Recommend to repeat UA with PCP if indicated, stop antibiotics CAD/HTN/HLD hx of Vfib arrest while off ASA for hip replacement follows Dr. Enriquez no cp/sob continue asa, statin, lisinopril and coreg CKD -3a bun/cr stable at 18 and 1.24 avoid nephrotoxic agents pt did receive dose of toradol in route to ED monitor renal fxn COPD no acute exacerbation former tobacco abuse continue combivent Hx of crohn's disease s/p surgical resection of ileum has been in remission and does not follow with GI regularly Pernicious anemia 2/2 to SB resection continue vit b12 injections, due for dose today H/H normal DVT ppx: SCDS/TEDS for now 2/2 to pt requiring manual manipulation of disimpaction consider chemical prophylaxis when able PCP: Dr. Miranda Total Time Total Time Spent Total Time Spent (In Minutes): 35 Total Time Includes: Examination of the Patient, Discharge Planning, Medication Reconciliation and Communication With Other Providers Discharge Plan Discharge Items Patient Disposition: Home - Self-Care Reason For Visit: STERCORAL PROCTITIS; FECAL IMPACTION Discharge Diagnosis: Severe constipation, fecal impaction in rectum, concern for stercoral proctitis Abnormal UA Hypomagnesemia Activity: Per Instructions section Non-emergency contact: Primary Care Provider Call non-emergency contact if: you have any medication questions and your symptoms worsen Follow-up/Referrals: Michell Miranda MD [Primary Care Provider] - (Date & Time 08/17/2020 11:00 AM Provider Michell Miranda MD Department Family Medicine [facility] ) Diet: Regular Addtl Attending Provider Instructions: Follow-up with your primary care doctor, the appointment is scheduled for you for August 17. Make sure you have at least 1 bowel movement/ 1 soft stool a day. While taking hydrocodone, take MiraLAX twice a day. Your magnesium level was low, please take magnesium supplement as prescribed. Discuss this with your primary care doctor, and perhaps have your magnesium level rechecked. Pending Studies at Discharge: No Stand-Alone Forms: My [facility] Open[employer], Smoking Cessation Medications and DC Order Prescriptions: New magnesium oxide 400 mg (241.3 mg magnesium) Tablet 400 mg PO QAM Qty: 30 RF: 0 polyethylene glycol 3350 [Miralax] 17 gram Powder In Packet 17 g PO BID Qty: 14 RF: 0 Continued carvedilol 3.125 mg tablet 3.125 mg PO DAILY RF: 0 lisinopril 10 mg tablet 10 mg PO DAILY RF: 0 nitroglycerin 0.4 mg tablet, sublingual 0.4 mg sublingual UD RF: 0 Combivent Respimat 20-100 mcg/actuation mist 1 puff INHALATION QID RF: 0 albuterol sulfate 0.63 mg/3 mL Solution For Nebulization 0.63 mg INHALATION QID PRN (Reason: sob) RF: 0 aspirin [Aspir-81] 81 mg Tablet,Delayed Release (Dr/Ec) 81 mg PO DAILY RF: 0 cyanocobalamin (vitamin B-12) 1,000 mcg/mL Solution 1,000 mcg IM Q4WK RF: 0 omeprazole 20 mg Capsule,Delayed Release(Dr/Ec) 20 mg PO DAILY RF: 0 rosuvastatin 5 mg tablet 5 mg PO DAILY RF: 0 Discharge Orders: Discharge Order (Routine); Ordered 08/14/20 Ordered By: Bro Koehler Admission Data Admit Date/Time: 08/13/20 14:20 Attending Provider: Bro Koehler Admit Provider: Knab,Bro F. Primary Care Provider: Michell Miranda Other Providers: Ashley Mims ; Bro Koehler
--- NOTE | 2020-08-16 13:46 | Pharmacy Report ---
ED Pharmacist Culture FollowUP - Culture Follow Up Note Date of Service: August 16, 2020 Notes:: Urine cx [id number] sent to ED by micro lab. This patient was admitted to [facility] service and has since been discharged. Spoke w/ L Marie PAC, she requested results be sent to Kiran Sanchez. I attempted to reach Kiran via [employer], however I did not receive a response. I asked ED area secretary to fax cx to patient's PCP Dr Cliff Miranda.
== END 2020-08-14 16:55 | disposition home or self-care (01) ==
LOC: ED 09:24 → 2W 09:24

== ENCOUNTER 2022-03-23 00:37 | Inpatient (IN) ==
--- NOTE | 2022-03-23 00:57 | Emergency Department Note ---
History of Present Illness General Chief complaint: Respiratory Distress Stated complaint: RESP DISTRESS Time Seen by Provider: 03/23/22 00:39 History of Present Illness 81-year-old male presents emergency department reportedly had increased work of breathing and shortness of breath that started earlier this evening. Patient has a history of COPD. According to EMS they were called for respiratory distress found the patient have a pulse ox around 73% he was tripoding at that time. Patient was anxious and agitated initially did not want to take CPAP treatment. Patient was given IV Solu-Medrol 125 mg by prehospital prior to arrival. Patient was started on CPAP. He was much improved with a pulse oximet ry greater than 94%. Of note patient recently was evaluated and diagnosed with influenza approximately 2 weeks ago. There are no other mitigating or alleviating factors. Patient currently is only able to speak in one-word sentences Home Medications Medication Instructions Recorded Confirmed Type albuterol sulfate 0.63 mg/3 mL 0.63 mg inhalation QID PRN 08/13/20 03/23/22 History solution for nebulization Shortness Of Breath aspirin 81 mg tablet,delayed 81 mg PO DAILY 08/13/20 03/23/22 History release carvedilol 3.125 mg tablet 3.125 mg PO DAILY 08/13/20 03/23/22 History cyanocobalamin (vitamin B-12) 1,000 mcg IM Q4WK 08/13/20 03/23/22 History 1,000 mcg/mL injection solution ipratropium 20 mcg-albuterol 100 1 puff inhalation QID 08/13/20 03/23/22 History mcg/actuation mist for inhalation (Combivent Respimat) lisinopril 10 mg tablet 10 mg PO DAILY 08/13/20 03/23/22 History nitroglycerin 0.4 mg sublingual 0.4 mg sublingual DIRECTED PRN 08/13/20 03/23/22 History tablet Chest Pain prednisone 20 mg tablet 20 mg PO DIRECTED 03/23/22 03/23/22 History Allergies Allergy/AdvReac Type Severity Reaction Status Date / Time codeine Allergy Severe UNKNOWN--ON Verified 03/23/22 02:02 GMG MED LIST latex Allergy Mild RASH Verified 03/23/22 02:02 Iodinated Contrast Media AdvReac HETAL ChampagneKEY Verified 03/23/22 02:02 Past Med/Surg History Medical History CAD (coronary artery disease) August, during which time he was cared for in [place] and underwent coronary intervention of the left anterior descending coronary artery with 2 areas stented, both the proximal and mid LAD with drug-eluting stents. He also had PTCA of the first diagonal branch at that time. A residual 70% mid right coronary artery stenosis and 30% circumflex stenosis was also present. 12/04/2012 - vfib arrest, defib x 3, along with CPRO, cardiac cath previous LAD stents patent, underwent BMS to culprit RCA stenosis CKD (chronic kidney disease) stage 3, GFR 30-59 ml/min COPD (chronic obstructive pulmonary disease) Crohn's disease Depression Duodenal ulcer GERD (gastroesophageal reflux disease) Glaucoma Hereditary and idiopathic neuropathy History of ventricular fibrillation 12/04/2012 - vfib arrest, defib x 3, along with CPRO, cardiac cath previous LAD stents patent, underwent BMS to culprit RCA stenosis HLD (hyperlipidemia) HTN (hypertension) Nephrolithiasis Pernicious anemia Surgical History History of appendectomy History of cholecystectomy History of coronary artery balloon dilation WILFREDO 09/2011 History of extraction of renal calculus History of inguinal hernia repair History of resection of small bowel 2/2 to Crohn's, dx 1981, resection of terminal ileum for medically unresponsive obstruction 1985; 1991; 1993 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 Family History Mother Alzheimer disease Brother Diabetes Hypertension Father Heart disease Other Cancer Social History Smoking Status: Former smoker Tobacco Type: Cigarettes Second Hand Exposure: No; Hx Alcohol Use: No Hx Substance Use: No Preferred Language: Wolof Guidance Counselor Required: No Beliefs That Will Affect Care: None marital status: Current Living Situation: Spouse Feels Safe at Home: Yes Assistive Devices: Denture - Upper and Denture - Lower Review of Systems Unobtainable due to cognitive status Physical Exam Vital Signs Vital Signs - 24 hr 03/23/22 00:50 03/23/22 00:59 03/23/22 01:05 Temperature 36.2 C L Temperature Source Oral Pulse Rate 100 H 94 H Pulse Rate [Left Finger] Respiratory Rate 30 H 26 H Respiratory Effort / Characteristics Spontaneous Labored Respiratory Depth Deep Respiratory Pattern Rapid/Deep Tachypnea Blood Pressure 143/81 H Blood Pressure [Right Arm] Blood Pressure Mean 101 Blood Pressure Mean [Right Arm] Blood Pressure Position Lying Blood Pressure Position [Right Arm] Pulse Oximetry 100 97 95 Oxygen Delivery Method CPAP Oxygen Flow Rate Fraction of Inspired Oxygen 100 35 Sepsis Recent Fever Within 48 Hours No Sepsis New/Unexplained Change in Mental Status No Sepsis Action Taken by Nursing No Action Required 03/23/22 01:05 03/23/22 01:05 03/23/22 02:57 Temperature Temperature Source Pulse Rate Pulse Rate [Left Finger] 99 H Respiratory Rate 16 Respiratory Effort / Characteristics Labored Labored Respiratory Depth Shallow Respiratory Pattern Agonal Blood Pressure Blood Pressure [Right Arm] 147/87 H Blood Pressure Mean Blood Pressure Mean [Right Arm] 107 Blood Pressure Position Blood Pressure Position [Right Arm] Sitting Pulse Oximetry 98 Oxygen Delivery Method CPAP CPAP Non-rebreather Oxygen Flow Rate 15 Fraction of Inspired Oxygen Sepsis Recent Fever Within 48 Hours Sepsis New/Unexplained Change in Mental Status Sepsis Action Taken by Nursing GENERAL: Patient is awake alert in mild respiratory distress on CPAP on arrival EYES: The conjunctivae are clear. The pupils are round and reactive. EARS, NOSE, MOUTH AND THROAT: The nose is without any evidence of any deformity. Mucous membranes are moist. Tongue is midline. NECK: The neck is nontender and supple. RESPIRATORY: Patient is speaking in one-word sentences patient has BiPAP, patient has decreased breath sounds bilaterally CARDIOVASCULAR: Regular rate and rhythm noted there no murmurs rubs or gallops normal S1 normal S2. GASTROINTESTINAL: The abdomen is soft. Abdomen is nontender. PELVIS: The Pelvis is stable. No tenderness to palpation is noted. BACK: No midline tenderness or or step-off noted range of motion in flexion exte nsion as well as rotation no signs of muscle spasm noted MUSCULOSKELETAL/EXTREMITIES: There is no evidence of gross deformity full range of motion is noted in the hips and shoulders. SKIN: There is no obvious evidence of any rash. There are no petechiae, pallor or cyanosis noted. NEUROLOGIC: Patient is awake alert; Course Reevaluation(s) Reevaluation #1: Patient was started on CPAP, given IV fluids, patient had received Solu-Medrol prior to arrival. Patient is influenza A positive. Patient is much improved on CPAP. I discussed evaluation with the patient's family as the patient's is also a patient here currently Time: 03:05 Consultations Consultation #1: Case was discussed with the [facility] hospitalist for admission Administered Medications Sodium Chloride (Nss 1000ml) 1,000 mls @ 999 mls/hr IV .Q1H1M ONE Stop: 03/23/22 03:21 Last Admin: 03/23/22 02:57 Dose: 999 mls/hr Documented By: ARIAS Critical Care Time Critical Care Time: Yes Total Critical Care Time: 35 I have personally spent greater than 35 minutes of critical care time in the direct management of this patient. This includes bedside care, interpretation of diagnostic studies, and testing, discussion with consultants, patient, and family members, and other required patient management activities. These minutes are in excess of all separately billable procedures. Medical Decision Making Medical Records Attestation: I reviewed the patient's medical records. Home Medications Current Medication List: was personally reviewed by me Laboratory Data Attestation: I reviewed the patient's lab results. Result diagrams: 03/23/22 00:55 03/23/22 00:55 Lab Results 03/23/22 03/23/22 03/23/22 Range/Units 00:55 00:55 00:55 WBC 9.62 (4.8-10.8) K/ul RBC 3.56 L (4.63-6.08) M/uL Hgb 11.9 L (14.0-18.0) g/dl Hct 36.0 L (40.1-51.0) % MCV 101.1 H (80.0-100.0) fL MCH 33.4 (25.0-34.0) pg MCHC 33.1 (32.0-36.0) g/dL RDW Std Deviation 46.5 H (36.4-46.3) fL RDW Coeff of Dari 12.4 (11.5-14.5) % Plt Count 321 (130-400) K/uL MPV 9.8 (9.4-12.4) fL Immature Gran % (Auto) 0.7 % Neut % (Auto) 88.0 % Lymph % (Auto) 6.8 % Marshall % (Auto) 4.4 % Eos % (Auto) 0.1 % Baso % (Auto) 0.0 % Neut # (Auto) 8.47 H (1.4-6.5) K/uL Lymph # (Auto) 0.65 L (1.2-3.4) K/uL Marshall # (Auto) 0.42 (0.24-0.82) K/uL Eos # (Auto) 0.01 (0-0.50) K/uL Baso # (Auto) 0.00 (0-0.2) K/uL Immature Gran # (Auto) 0.07 H (0.00-0.02) K/uL VBG pH (7.36-7.41) VBG pCO2 (38-50) mmHg VBG pO2 mmHg VBG HCO3 mmol/L VBG O2 Saturation % VBG Base Excess mEq/L Sodium 139 (136-145) mmol/L Potassium 4.3 (3.5-5.1) mmol/L Chloride 101 (98-107) mmol/L Carbon Dioxide 29 (21-32) mmol/L Anion Gap 9 (3-11) BUN 53 H (6-23) mg/dl Creatinine 1.34 (0.6-1.4) mg/dl Est Cr Clr Drug Dosing 28.6 ml/min Est GFR ( Amer) 58.0 ml/min Est GFR (Non-Af Amer) 50.0 ml/min BUN/Creatinine Ratio 39.6 H (10-20) Glucose 124 H (70-99(Fasting)) mg/dl Lactate (0.4-2.0) mmol/L Calcium 9.4 (8.5-10.1) mg/dl Magnesium 1.5 L (1.7-2.4) mg/dl Total Bilirubin 0.7 (0.2-1.0) mg/dl Direct Bilirubin 0.1 (0-0.2) mg/dl AST 18 (13-39) U/L ALT 15 (7-52) U/L Alkaline Phosphatase 64 (34-104) U/L Troponin I High Sens 39.6 H (0-20) pg/ml Total Protein 6.9 (6.0-8.3) gm/dl Albumin 3.8 (3.4-5.0) gm/dl Procalcitonin 0.22 (0-0.5) ng/ml SARS-CoV-2 (PCR) (Negative) Influenza Type A (PCR) (Neg) Influenza Type B (PCR) (Neg) RSV (RT-PCR) (Neg) 03/23/22 03/23/22 03/23/22 Range/Units 01:00 01:41 01:41 WBC (4.8-10.8) K/ul RBC (4.63-6.08) M/uL Hgb (14.0-18.0) g/dl Hct (40.1-51.0) % MCV (80.0-100.0) fL MCH (25.0-34.0) pg MCHC (32.0-36.0) g/dL RDW Std Deviation (36.4-46.3) fL RDW Coeff of Dari (11.5-14.5) % Plt Count (130-400) K/uL MPV (9.4-12.4) fL Immature Gran % (Auto) % Neut % (Auto) % Lymph % (Auto) % Marshall % (Auto) % Eos % (Auto) % Baso % (Auto) % Neut # (Auto) (1.4-6.5) K/uL Lymph # (Auto) (1.2-3.4) K/uL Marshall # (Auto) (0.24-0.82) K/uL Eos # (Auto) (0-0.50) K/uL Baso # (Auto) (0-0.2) K/uL Immature Gran # (Auto) (0.00-0.02) K/uL VBG pH 7.34 L (7.36-7.41) VBG pCO2 59 H (38-50) mmHg VBG pO2 18 mmHg VBG HCO3 32 mmol/L VBG O2 Saturation < 60.0 % VBG Base Excess 4.3 mEq/L Sodium (136-145) mmol/L Potassium (3.5-5.1) mmol/L Chloride (98-107) mmol/L Carbon Dioxide (21-32) mmol/L Anion Gap (3-11) BUN (6-23) mg/dl Creatinine (0.6-1.4) mg/dl Est Cr Clr Drug Dosing ml/min Est GFR ( Amer) ml/min Est GFR (Non-Af Amer) ml/min BUN/Creatinine Ratio (10-20) Glucose (70-99(Fasting)) mg/dl Lactate 2.4 H* (0.4-2.0) mmol/L Calcium (8.5-10.1) mg/dl Magnesium (1.7-2.4) mg/dl Total Bilirubin (0.2-1.0) mg/dl Direct Bilirubin (0-0.2) mg/dl AST (13-39) U/L ALT (7-52) U/L Alkaline Phosphatase (34-104) U/L Troponin I High Sens (0-20) pg/ml Total Protein (6.0-8.3) gm/dl Albumin (3.4-5.0) gm/dl Procalcitonin (0-0.5) ng/ml SARS-CoV-2 (PCR) NEGATIVE (Negative) Influenza Type A (PCR) Positive A* (Neg) Influenza Type B (PCR) Negative (Neg) RSV (RT-PCR) Negative (Neg) Imaging Data Attestation: I personally reviewed and interpreted this imaging study as follows: My Impression: Chest x-ray interpreted by me positive for COPD changes no obvious infiltrate no pneumothorax ECG Data Attestation: I personally reviewed and interpreted this ECG as follows: Additional Comments: EKG interpreted by me normal sinus rhythm rate of 92 normal intervals normal axis no obvious ST segment elevation or depression MDM Narrative Medical decision making differential diagnosis includes respiratory extremis, hypercarbic respiratory failure, COPD, pneumonia, influenza, COVID, electrolyte abnormality, cardiac dysrhythmia. Plan is to check sepsis labs, EKG, chest x- ray, VBG, continue treatment by admit Patient was evaluated for respiratory distress this could be a COPD exacerbation, patient is influenza positive. Patient may have flu sepsis. Patient was started on IV fluids. Patient's lactate is elevated was started on IV fluids due to elevated lactate do not see any evidence of pneumonia at this time. Patient is not in septic shock. Patient will be admitted for respiratory complaints Impression & Plan Acute exacerbation of chronic obstructive pulmonary disease, Influenza, SIRS (systemic inflammatory response syndrome) Discharge Plan Visit Data Chief Complaint: Respiratory Distress Stated Complaint: RESP DISTRESS ED Provider: Alfonso Uribe Discharge Problem: Acute exacerbation of chronic obstructive pulmonary disease, Influenza, SIRS (systemic inflammatory response syndrome) Patient Disposition: Being Evaluated by Hospitalist Forms Stand Alone Forms: My [facility] Prescriptions Prescriptions: No Action carvedilol 3.125 mg tablet 3.125 mg PO DAILY lisinopril 10 mg tablet 10 mg PO DAILY nitroglycerin 0.4 mg tablet, sublingual 0.4 mg sublingual DIRECTED PRN (Reason: Chest Pain) Combivent Respimat 20-100 mcg/actuation mist 1 puff INHALATION QID albuterol sulfate 0.63 mg/3 mL Solution For Nebulization 0.63 mg INHALATION QID PRN (Reason: Shortness Of Breath) aspirin 81 mg Tablet,Delayed Release (Dr/Ec) 81 mg PO DAILY cyanocobalamin (vitamin B-12) 1,000 mcg/mL Solution 1,000 mcg IM Q4WK prednisone 20 mg tablet 20 mg PO DIRECTED Referrals Referrals: Michell Miranda MD [Primary Care Provider] -
[2022-03-23 01:17] LABS: Eosinophils # (auto) 0.01 K/uL (0-0.50); Eosinophils % (auto) 0.1 %; Hemoglobin 11.9 g/dl (14.0-18.0); Immature Granulocytes # (auto) 0.07 K/uL (0.00-0.02); Immature Granulocytes % (auto) 0.7 %; Lymphocytes # (auto) 0.65 K/uL (1.2-3.4); Lymphocytes % (auto) 6.8 %; Mean Corpuscular Hemoglobin 33.4 pg (25.0-34.0); Mean Corpuscular Hgb Conc 33.1 g/dL (32.0-36.0); Mean Corpuscular Volume 101.1 fL (80.0-100.0); Mean Platelet Volume 9.8 fL (9.4-12.4); Monocytes # (auto) 0.42 K/uL (0.24-0.82); Monocytes % (auto) 4.4 %; Neutrophils # (auto) 8.47 K/uL (1.4-6.5); Platelet Count 321 K/uL (130-400); RDW Coefficient of Variation 12.4 % (11.5-14.5); RDW Standard Deviation 46.5 fL (36.4-46.3); Red Blood Count 3.56 M/uL (4.63-6.08); White Blood Count 9.62 K/ul (4.8-10.8)
[2022-03-23 01:48] LABS: Troponin I High Sensitivity 39.6 pg/ml (0-20)
[2022-03-23 01:53] LABS: Albumin Level 3.8 gm/dl (3.4-5.0); BUN Creatinine Ratio 39.6 (10-20); Bilirubin Direct 0.1 mg/dl (0-0.2); Bilirubin,Total 0.7 mg/dl (0.2-1.0); Calcium 9.4 mg/dl (8.5-10.1); Creatinine Clr Calc Pharmacy 28.6 ml/min; Magnesium 1.5 mg/dl (1.7-2.4); Potassium 4.3 mmol/L (3.5-5.1); Total Protein 6.9 gm/dl (6.0-8.3)
[2022-03-23 01:58] LABS: Influenza B virus by PCR Negative (Neg); RSV by PCR Negative (Neg); SARS CoV2 RNA(COVID-19) Ceph NEGATIVE (Negative)
[2022-03-23 01:59] LABS: Base Excess VBG 4.3 mEq/L; HCO3 VBG 32 mmol/L; Oxygen Saturation VBG < 60.0 %; PCO2 VBG 59 mmHg (38-50); PO2 VBG 18 mmHg; pH VBG 7.34 (7.36-7.41)
[2022-03-23 02:15] LABS: Influenza A virus by PCR Positive (Neg)
[2022-03-23] MEDS ORDERED: SODIUM CHLORIDE 0.9% 1000ML 1,000 ML IV ONE (02:21)
[2022-03-23] MEDS ORDERED: KETOROLAC TROMETHAMINE 15 MG/ML VIAL IV ONE (03:22)
[2022-03-23 03:53] LABS: Appearance Urine Clear (Clear); Bacteria Urine Automated Negative (Negative); Bilirubin Urine Negative (Negative); Blood Urine Negative (Negative); Color Urine Yellow; Glucose Urine UA Negative (Negative); Ketones Urine Negative (Negative); Leukocyte Esterase Urine Negative (Negative); Nitrite Urine Negative (Negative); Protein Urine Trace (Negative); RBC Urine Automated 0-4 /hpf (0-4); Specific Gravity Urine 1.022 (1.000-1.030); Urobilinogen Urine Negative (Negative)
[2022-03-23] MEDS: MAGNESIUM SULFATE / D5W 1 GM/100 ML BAG IV SCH ×2 (04:08→05:41)
[2022-03-23] MEDS ORDERED: NITROGLYCERIN SL 0.4 MG/TAB TAB SL PRN ×2 (05:00)
[2022-03-23] MEDS ORDERED: POLYETHYLENE (MIRALAX) 17 GM PACK PO PRN (05:00)
[2022-03-23] MEDS ORDERED: XOPENEX/ATROVENT 1.25mg/0.5MG NEB COMBO NEB PRN (05:00)
[2022-03-23] MEDS ORDERED: IPRATROPIUM BROMIDE NEB SOLN 0.02% 2.5 ML VIAL INH PRN (05:00)
[2022-03-23] MEDS ORDERED: LEVALBUTEROL 1.25MG/0.5ML NEB INH PRN (05:00)
[2022-03-23] MEDS ORDERED: ENOXAPARIN INJ 40 MG/0.4 ML SYR SQ SCH (05:00)
[2022-03-23] MEDS: ACETAMINOPHEN 325 MG TAB PO PRN ×3 (05:45→21:05)
[2022-03-23] MEDS ORDERED: AZITHROMYCIN 250 MG TAB PO ONE (06:30)
--- NOTE | 2022-03-23 06:41 | History and Physical Report ---
DATE OF ADMISSION: 03/23/2022. CHIEF COMPLAINT: Shortness of breath, respiratory distress. HISTORY OF PRESENT ILLNESS: A 81-year-old male with past medical history significant for hyperlipidemia, hyperglycemia, COPD, CAD, hypertension, GERD, Crohn's disease, history of calculus of kidney, history of chronic kidney disease stage III, avascular necrosis of femoral head, history of glaucoma, cervicalgia, peripheral neuropathy, anemia, depression, history of ST-elevated GA, history of cardiac arrest, presents with shortness of breath. The patient was here in the ER on 03/11/2022 and was found to have influenza A. At that time, he wanted to go home and got discharged on doxycycline and a short course of prednisone, but today he was having increased working of breathing and it started yesterday evening. As per EMS, he was found to have a pulse ox around 73% and seems he was agitated, he was placed on CPAP, given Solu-Medrol 125 mg, and brought in here. With the CPAP, his oxygenation improved into 94%. Currently he is on non-rebreather mask, saturating okay. Able to speak, can give his history. Says he is having shortness of breath and cough, and not bringing any phlegm. He denies any fevers and he has a lot of pain in the left lower chest. The pain is more when taking a deep breath. Denies any nausea, vomiting. No Abdominal pain, no diarrhea. Appetite is okay. No headache, no blurred visions, no runny nose, no sore throat. Currently, hemodynamics are okay. ALLERGIES: CODEINE, LATEX, IODINATED CONTRAST MEDIA. PAST MEDICAL HISTORY: As mentioned above. PAST SURGICAL HISTORY: Cardiac catheterization with drug-eluting stent in 2011, appendectomy, resection of terminal ileum cholecystectomy, removal of ureteral stone, repair of inguinal hernia. MEDICATIONS: The patient is on albuterol nebulization q.i.d. p.r.n., aspirin 81 mg p.o. daily, Coreg 3.125 mg p.o. daily, Combivent 1 puff inhalation q.i.d., vitamin B12 1000 mcg IM q. 4 weeks, lisinopril 10 mg p.o. daily, nitroglycerin 0.4 mg sublingual p.r.n. FAMILY HISTORY: Significant for aunt has cancer; brother has diabetes; father has heart disorder; brother has hypertension; mother has Alzheimer's disease; maternal grandmother has hypertension. SOCIAL HISTORY: , former smoker, quit in 2011. No alcohol use. No drug use. REVIEW OF SYSTEMS: As per HPI. Rest of review of systems is negative. PHYSICAL EXAMINATION: GENERAL: The patient is of moderate build, in mild respiratory distress. VITAL SIGNS: Temperature 36.2, pulse 99, respiratory rate 16, blood pressure 147/87, oxygen 98% on nonrebreather, 15 liters. HEENT: Pupils equal, round and reactive to light. Oral mucosa moist. NECK: No JVD. No neck masses seen. CARDIOVASCULAR: S1 and S2 heard. Regular rate and rhythm. No murmur, no gallop. RESPIRATORY SYSTEM: Bilateral diminished breath sounds. Occasional wheezing, no crackles. ABDOMEN: Soft, bowel sounds present, nontender, no distention. CENTRAL NERVOUS SYSTEM: Alert and oriented. Speech is clear. No facial droop. Obeys simple commands. Moves extremities. EXTREMITIES: No edema, no erythema. LABORATORY DATA: WBC 9.6, hemoglobin 11.9, hematocrit 36, platelets 321. Venous duplex, pH of 7.34, pCO2 of 59. Sodium 139, potassium 4.3, chloride 101, bicarbonate 29, BUN 53, creatinine 1.34, serum glucose 124, lactate 2.4, calcium 9.5, magnesium 1.5, total bilirubin 0.7, direct bilirubin is 0.1, AST 18, ALT 15, alkaline phosphatase 64. Troponin I high sensitivity 39.6. Procalcitonin 0.22. SARS-CoV-2 PCR negative. Influenza A PCR positive. Influenza B PCR negative. RSV PCR negative. IMAGING DATA: Chest x-ray, no acute findings seen. ASSESSMENT AND PLAN: This is a 81-year-old male, who presents with respiratory distress. 1. Respiratory distress: Diagnosed with flu on 03/11/2022 and d/[place] from ER on prednisone short course and po Doxycycline as seems he wanted to go home.Presents with Possible chronic obstructive pulmonary disease exacerbation. Initially was placed on CPAP as he was saturating at 73% at home. Currently, he is on non-rebreather. Will try to wean off non-rebreather. Continue with Solu-Medrol 40 mg t.i.d. Nebs around the clock and p.r.n. Will get a CT chest to get a better picture. Will closely monitor in tele floor. CT chest preliminary report showing bronchitis and pneumonitis . Will follow final report. Started on Rocephin and po azithromycin. 2. History of coronary artery disease, status post stent: Continue his aspirin, lisinopril, Coreg. 3. History of hypertension: On lisinopril and Coreg. Will monitor the blood pressure. 4. History of hyperlipidemia: Seems he is supposed to be on Crestor. 5. Deep venous thrombosis prophylaxis: Lovenox. 6. Mild elevation of troponin: Follow serial enzymes. 7 Lactate 2.4, most probably from respiratory distress. Will follow the repeat labs. 8. hypomagnesemia: Will replace. Follow repeat labs. DISPOSITION: Closely monitor in the tele floor. PT/OT prior to discharge. Social service to help with discharge planning. Job ID: [id number] MTDCliff
--- NOTE | 2022-03-23 06:56 | CT Scan Report ---
CT OF THE CHEST WITHOUT IV CONTRAST CLINICAL HISTORY: Shortness of breath. Flu. COMPARISON STUDY: Chest radiograph March 11, 2022 and March 23, 2022. CT DOSE: 316.25 mGy.cm TECHNIQUE: Axial images of the chest were obtained without IV contrast. Images were reviewed in the axial, sagittal, and coronal planes. IV contrast was not administered for this examination. Automat ed exposure control was utilized for the study. A dose lowering technique was utilized adhering to t he principles of ALARA. FINDINGS: No enlarged axillary, mediastinal or hilar lymph nodes are present. There is no pericardia l effusion. Suspected stent within the LAD. No pneumothorax or pleural effusion is noted. Lung hypere xpansion. Lungs are suboptimally assessed due to respiratory motion. Mild emphysema is present. In ad dition, diffuse bronchial wall thickening is noted. This is most pronounced within the lower lobes. N umerous tree-in-bud nodules are noted with lower lung predominance. Small foci of consolidation withi n the bilateral lower lobes are present. There are several old thoracic spine compression deformity. An old sternal fracture is present. Hyperdense wall thickening of the gallbladder is similar to prior abdominal CTs. IMPRESSION: 1. Bronchial wall thickening with multifocal tree-in-bud nodules and small foci of consolidation with in the lower lobes. The findings are consistent with an infectious process. 2. Mild emphysema. Lung hyperexpansion. ACT 112: Negative or not required by law. Electronically signed by: Charles Maza M.D. 03/23/2022 6:54 AM
--- NOTE | 2022-03-23 07:12 | XRay Report ---
XR chest 1V portable CLINICAL HISTORY: Sepsis. COMPARISON STUDY: Chest radiograph March 11, 2022. FINDINGS: Lung hyperexpansion is again noted. There is no pneumothorax or pleural effusion. There is no consolidation. Cardiac size is normal. Mediastinal contours are normal. IMPRESSION: No acute cardiopulmonary findings. ACT 112: Negative or not required by law. Electronically signed by: Charles Maza M.D. 03/23/2022 7:10 AM
[2022-03-23] MEDS: methylPREDNISolone 40 MG in SYRINGE 0 ML IV SCH ×3 (07:19→21:49)
[2022-03-23] MEDS: LEVALBUTEROL 1.25MG/0.5ML NEB INH SCH ×4 (07:24→19:37)
[2022-03-23] MEDS: IPRATROPIUM BROMIDE NEB SOLN 0.02% 2.5 ML VIAL INH SCH ×4 (07:24→19:37)
[2022-03-23] MEDS: cefTRIAXone SODIUM 1,000 MG in DEXTROSE 5% AD-VAN 50 ML IV SCH (07:37)
[2022-03-23] MEDS: ASPIRIN 81 MG ECTAB PO SCH (08:44)
[2022-03-23] MEDS: carvediloL 3.125 MG TAB PO SCH (08:44)
[2022-03-23] MEDS: lisinopril 10 MG TAB PO SCH (08:44)
[2022-03-23] MEDS: HEPARIN SOD 5,000 UNIT/0.5 ML VIAL SQ SCH ×2 (08:44→20:25)
[2022-03-23] MEDS ORDERED: XOPENEX/ATROVENT 1.25mg/0.5MG NEB COMBO NEB SCH (09:00)
[2022-03-23] MEDS ORDERED: ALBUT/IPRATROP 3MG/0.5MG NEB 3 ML VIAL NEB PRN (12:23)
--- NOTE | 2022-03-23 13:22 | Hospitalist Progress Note ---
Date of Service March 23, 2022 Assessment & Plan (1) Acute exacerbation of chronic obstructive pulmonary disease: Plan: - came with shortness of breath, wheezes, influenza A infection in setting of COPD - supplemental oxygen as needed - IVF - Tamiflu started as well as ceftriaxone and azithromycin - steroids for 5 days - wean O2 as tolerated - may need 2 step prior to discharge - continue to monitor (2) Influenza: Plan: - persistent infection as was positive 03/11/2022 - given advanced COPD and respiratory distress will treat with Tamiflu - steroids and abx as above as well - wean O2 as tolerated (3) Sepsis: Plan: - tachycardia, tachypnea/hypoxia, in the setting of influenza infection - sepsis likely due to influenza, cannot exclude super imposed bacterial infection - IVF - supplemental oxygen as needed, wean as tolerated - improving (4) CKD (chronic kidney disease) stage 3, GFR 30-59 ml/min: Plan: - Cr mildly elevated likely due to dehydration in the setting of sepsis - IVF for now - avoid nephrotoxic medications - trend UOP and Cr - monitor (5) GERD (gastroesophageal reflux disease): Plan: - noted, not on medications (6) HTN (hypertension): Plan: - continue home medications (7) HLD (hyperlipidemia): Plan: - not on statin - will get lipids - patient hesistent to start new medication at this time - would recommend statin given CAD and h/o NH (8) CAD (coronary artery disease): Plan: - no cardiac chest pain - ECG without ischemic changes - troponin mildly elevated, no delta on repeat - continue to trend for now - not likely ACS (9) Lactic acidosis: Plan: - was 2.4 on admission likely due to decreased po intake and sepsis/hypoxia due to influenza - repeat 1.6 s/p supplemental oxgyen and IVF - resolved Plan DVT ppx: heparin SC Code Status: Full Code Dispo: PCU Walker Mejia MD Hospital Medicine Admission and Anticipated Discharge Date Admission Date: March 23, 2022 Subjective Patient with HLD, COPD, CAD s/p stents, HTN, GERD, Crohn;s disease, CKD, h/o avascular necrosis of femoral head, glaucoma presented with shortness of breath, found to have influenza A infection. Started on [place], steroids, duoneb. Patient feels a little better since admission. Appetite is improved. Still with cough and chest pain with coughing along the whole lower rib cage. Denies other chest pain, n/v/d, abdominal pain, dysuria. Review of Systems Review of Systems: All systems reviewed & are unremarkable except as noted in Subjective Physical Exam Physical Exam: GENERAL: The patient is of moderate build, in mild respiratory distress, cachectic. HEENT: Pupils equal, round and reactive to light. Oral mucosa moist. NECK: No JVD. No neck masses seen. CARDIOVASCULAR: S1 and S2 heard. Regular rate and rhythm. No murmur, no gallop. RESPIRATORY SYSTEM: Bilateral diminished breath sounds. Occasional wheezing, no crackles. ABDOMEN: Soft, bowel sounds present, nontender, no distention. CENTRAL NERVOUS SYSTEM: Alert and oriented. Speech is clear. No facial droop. Obeys simple commands. Moves extremities. EXTREMITIES: No edema, no erythema Results & Data Results & Data ([facility]) Vital Signs (Past 12 Hours) Vital Signs Temp Pulse Pulse Resp BP Pulse Ox O2 Del Method 03/23/22 11:06 55 L 16 99 Nasal Cannula 03/23/22 11:01 36.6 C 69 20 153/87 H 92 Nasal Cannula 03/23/22 09:35 71 03/23/22 09:21 Nasal Cannula 03/23/22 07:26 36.5 C 16 153/77 H 100 Oxymask 03/23/22 07:24 72 16 98 Oxymask 03/23/22 05:00 Oxymask 03/23/22 05:03 99 H 14 179/92 H 99 Oxymask 03/23/22 04:30 83 98 Oxymask 03/23/22 04:12 77 17 164/77 H 100 Non-rebreather 03/23/22 03:39 85 18 97 Non-rebreather 03/23/22 02:57 99 H 16 147/87 H 98 Non-rebreather O2 Flow Rate 03/23/22 11:06 2 03/23/22 11:01 2 03/23/22 09:35 03/23/22 09:21 2 03/23/22 07:26 03/23/22 07:24 4 03/23/22 05:00 4 03/23/22 05:03 03/23/22 04:30 4 03/23/22 04:12 10 03/23/22 03:39 10 03/23/22 02:57 15 Diagnostic Findings Laboratory Results WBC 9.62 K/ul (4.8-10.8) 03/23/22 00:55 RBC 3.56 M/uL (4.63-6.08) L 03/23/22 00:55 Hgb 11.9 g/dl (14.0-18.0) L 03/23/22 00:55 Hct 36.0 % (40.1-51.0) L 03/23/22 00:55 MCV 101.1 fL (80.0-100.0) H 03/23/22 00:55 MCH 33.4 pg (25.0-34.0) 03/23/22 00:55 MCHC 33.1 g/dL (32.0-36.0) 03/23/22 00:55 RDW Std Deviation 46.5 fL (36.4-46.3) H 03/23/22 00:55 RDW Coeff of Dari 12.4 % (11.5-14.5) 03/23/22 00:55 Plt Count 321 K/uL (130-400) 03/23/22 00:55 MPV 9.8 fL (9.4-12.4) 03/23/22 00:55 Immature Gran % (Auto) 0.7 % 03/23/22 00:55 Neut % (Auto) 88.0 % 03/23/22 00:55 Lymph % (Auto) 6.8 % 03/23/22 00:55 [place] % (Auto) 4.4 % 03/23/22 00:55 Eos % (Auto) 0.1 % 03/23/22 00:55 Baso % (Auto) 0.0 % 03/23/22 00:55 Neut # (Auto) 8.47 K/uL (1.4-6.5) H 03/23/22 00:55 Lymph # (Auto) 0.65 K/uL (1.2-3.4) L 03/23/22 00:55 [place] # (Auto) 0.42 K/uL (0.24-0.82) 03/23/22 00:55 Eos # (Auto) 0.01 K/uL (0-0.50) 03/23/22 00:55 Baso # (Auto) 0.00 K/uL (0-0.2) 03/23/22 00:55 Immature Gran # (Auto) 0.07 K/uL (0.00-0.02) H 03/23/22 00:55 VBG pH 7.34 (7.36-7.41) L 03/23/22 01:41 VBG pCO2 59 mmHg (38-50) H 03/23/22 01:41 VBG pO2 18 mmHg 03/23/22 01:41 VBG HCO3 32 mmol/L 03/23/22 01:41 VBG O2 Saturation < 60.0 % 03/23/22 01:41 VBG Base Excess 4.3 mEq/L 03/23/22 01:41 Sodium 139 mmol/L (136-145) 03/23/22 00:55 Potassium 4.3 mmol/L (3.5-5.1) 03/23/22 00:55 Chloride 101 mmol/L (98-107) 03/23/22 00:55 Carbon Dioxide 29 mmol/L (21-32) 03/23/22 00:55 Anion Gap 9 (3-11) 03/23/22 00:55 BUN 53 mg/dl (6-23) H 03/23/22 00:55 Creatinine 1.34 mg/dl (0.6-1.4) 03/23/22 00:55 Est Cr Clr Drug Dosing 28.6 ml/min 03/23/22 00:55 Est GFR ( Amer) 58.0 ml/min 03/23/22 00:55 Est GFR (Non-Af Amer) 50.0 ml/min 03/23/22 00:55 BUN/Creatinine Ratio 39.6 (10-20) H 03/23/22 00:55 Glucose 124 mg/dl (70-99(Fasting)) H 03/23/22 00:55 Lactate 1.6 mmol/L (0.4-2.0) 03/23/22 03:52 Calcium 9.4 mg/dl (8.5-10.1) 03/23/22 00:55 Magnesium 1.5 mg/dl (1.7-2.4) L 03/23/22 00:55 Total Bilirubin 0.7 mg/dl (0.2-1.0) 03/23/22 00:55 Direct Bilirubin 0.1 mg/dl (0-0.2) 03/23/22 00:55 AST 18 U/L (13-39) 03/23/22 00:55 ALT 15 U/L (7-52) 03/23/22 00:55 Alkaline Phosphatase 64 U/L (34-104) 03/23/22 00:55 Troponin I High Sens 40.4 pg/ml (0-20) H 03/23/22 06:56 Total Protein 6.9 gm/dl (6.0-8.3) 03/23/22 00:55 Albumin 3.8 gm/dl (3.4-5.0) 03/23/22 00:55 Procalcitonin 0.22 ng/ml (0-0.5) 03/23/22 00:55 Urine Color Yellow 03/23/22 03:39 Urine Appearance Clear (Clear) 03/23/22 03:39 Urine pH 5.0 (4.5-7.5) 03/23/22 03:39 Ur Specific [place] 1.022 (1.000-1.030) 03/23/22 03:39 Urine Protein Trace (Negative) H 03/23/22 03:39 Urine Glucose (UA) Negative (Negative) 03/23/22 03:39 Urine Ketones Negative (Negative) 03/23/22 03:39 Urine Blood Negative (Negative) 03/23/22 03:39 Urine Nitrite Negative (Negative) 03/23/22 03:39 Urine Bilirubin Negative (Negative) 03/23/22 03:39 Urine Urobilinogen Negative (Negative) 03/23/22 03:39 Ur Leukocyte Esterase Negative (Negative) 03/23/22 03:39 Urine WBC (Auto) 1-5 /hpf (0-5) 03/23/22 03:39 Urine RBC (Auto) 0-4 /hpf (0-4) 03/23/22 03:39 U Hyaline Cast (Auto) 1-5 /lpf (0-5) 03/23/22 03:39 U Epithel Cells (Auto) 5-10 /lpf (0-5) H 03/23/22 03:39 Urine Bacteria (Auto) Negative (Negative) 03/23/22 03:39 SARS-CoV-2 (PCR) NEGATIVE (Negative) 03/23/22 01:00 Influenza Type A (PCR) Positive (Neg) A* 03/23/22 01:00 Influenza Type B (PCR) Negative (Neg) 03/23/22 01:00 RSV (RT-PCR) Negative (Neg) 03/23/22 01:00 Impressions Chest X-Ray 03/23/22 00:41 XR chest 1V portable CLINICAL HISTORY: Sepsis. COMPARISON STUDY: Chest radiograph March 11, 2022. FINDINGS: Lung hyperexpansion is again noted. There is no pneumothorax or pleural effusion. There is no consolidation. Cardiac size is normal. Mediastinal contours are normal. IMPRESSION: No acute cardiopulmonary findings. ACT 112: Negative or not required by law. Electronically signed by: Charles Maza M.D. 03/23/2022 7:[address] 03/23/22 03:23 CT OF THE CHEST WITHOUT IV CONTRAST CLINICAL HISTORY: Shortness of breath. Flu. COMPARISON STUDY: Chest radiograph March 11, 2022 and March 23, 2022. CT DOSE: 316.25 mGy.cm TECHNIQUE: Axial images of the chest were obtained without IV contrast. Images were reviewed in the axial, sagittal, and coronal planes. IV contrast was not administered for this examination. Automated exposure control was utilized for the study. A dose lowering technique was utilized adhering to the principles of ALARA. FINDINGS: No enlarged axillary, mediastinal or hilar lymph nodes are present. There is no pericardial effusion. Suspected stent within the LAD. No pneumothorax or pleural effusion is noted. Lung hyperexpansion. Lungs are suboptimally assessed due to respiratory motion. Mild emphysema is present. In addition, diffuse bronchial wall thickening is noted. This is most pronounced within the lower lobes. Numerous tree-in-bud nodules are noted with lower lung predominance. Small foci of consolidation within the bilateral lower lobes are present. There are several old thoracic spine compression deformity. An old sternal fracture is present. Hyperdense wall thickening of the gallbladder is similar to prior abdominal CTs. IMPRESSION: 1. Bronchial wall thickening with multifocal tree-in-bud nodules and small foci of consolidation within the lower lobes. The findings are consistent with an infectious process. 2. Mild emphysema. Lung hyperexpansion. ACT 112: Negative or not required by law. Electronically signed by: Charles Maza M.D. 03/23/2022 6:54 AM Medications Administered Current Inpatient Medications Acetaminophen (Acetaminophen 325 Mg Tab) 650 mg PO Q4H PRN PRN Reason: Pain or Fever Stop: 04/22/22 04:59 Last Admin: 03/23/22 05:45 Dose: 650 mg Albuterol (Albut/Ipratrop 3mg/0.5mg Neb 3 Ml Vial) 3 ml NEB Q4R PRN; Protocol PRN Reason: shortness of bretah Stop: 04/22/22 14:59 Aspirin (Aspirin 81 Mg Ectab) 81 mg PO DAILY [facility] Stop: 04/22/22 08:59 Last Admin: 03/23/22 08:44 Dose: 81 mg Azithromycin (Azithromycin 250 Mg Tab) 250 mg PO QAM [facility] Stop: 03/27/22 20:59 Carvedilol (Carvedilol 3.125 Mg Tab) 3.125 mg PO DAILY [facility] Stop: 04/22/22 08:59 Last Admin: 03/23/22 08:44 Dose: 3.125 mg Heparin Sodium (Porcine) (Heparin Sod 5,000 Unit/0.5 Ml Vial) 5,000 units SQ Q12 [facility] Stop: 04/22/22 08:59 Last Admin: 03/23/22 08:44 Dose: 5,000 units Methylprednisolone 40 mg/ (Syringe) 0.64 mls @ 1.5 mls/min IV Q8H [facility] Stop: 04/22/22 05:59 Last Admin: 03/23/22 07:19 Dose: 1.5 mls/min Ceftriaxone Sodium 1,000 mg/ (Dextrose) 50 mls @ 100 mls/hr IV DAILY@0600 [facility]; Protocol Stop: 03/30/22 06:29 Last Infusion: 03/23/22 08:40 Dose: Infused Ipratropium [place] (Ipratropium [place] Neb Soln 0.02% 2.5 Ml Vial) 0.5 mg INH Q2H PRN PRN Reason: Shortness Of Breath Or Wheezing Stop: 04/22/22 04:59 Ipratropium [place] (Ipratropium [place] Neb Soln 0.02% 2.5 Ml Vial) 0.5 mg INH QIDR [facility] Stop: 04/22/22 06:59 Last Admin: 03/23/22 11:06 Dose: 0.5 mg Ketorolac Tromethamine (Ketorolac Tromethamine 15 Mg/Ml Vial) 15 mg IV Q6H PRN PRN Reason: Pain Stop: 03/28/22 11:03 Levalbuterol HCl (Levalbuterol 1.25mg/0.5ml Neb) 1.25 mg INH Q2H PRN PRN Reason: Shortness Of Breath Or Wheezing Stop: 04/22/22 04:59 Levalbuterol HCl (Levalbuterol 1.25mg/0.5ml Neb) 1.25 mg INH QIDR [facility] Stop: 04/22/22 06:59 Last Admin: 03/23/22 11:06 Dose: 1.25 mg Lisinopril (Lisinopril 10 Mg Tab) 10 mg PO DAILY [facility] Stop: 04/22/22 08:59 Last Admin: 03/23/22 08:44 Dose: 10 mg Nitroglycerin (Nitroglycerin Sl 0.4 Mg/Tab Tab) 0.4 mg SL UD PRN PRN Reason: Chest Pain Stop: 04/22/22 04:59 Oseltamivir Phosphate (Oseltamivir Phosphate Susp 30 Mg/5 Ml Udp) 30 mg PO DAILY [facility]; Protocol Stop: 03/28/22 08:59 Polyethylene Glycol (Polyethylene (Miralax) 17 Gm Pack) 17 gm PO DAILY PRN PRN Reason: Constipation Stop: 04/22/22 04:59
[2022-03-23] MEDS ORDERED: LACTATED RINGER'S 1,000 ML IV SCH (14:00)
[2022-03-23 14:28] LABS: Chol HDL Ratio 2.1 (0-5)
--- NOTE | 2022-03-23 14:42 | Electrocardiogram Report ---
Test Reason : Blood Pressure : / mmHG Vent. Rate : 092 BPM Atrial Rate : 092 BPM P-R Int : 138 ms QRS Dur : 084 ms QT Int : 332 ms P-R-T Axes : 082 096 056 degrees QTc Int : 410 ms Normal sinus rhythm with sinus arrhythmia and possible PAC's Rightward axis Abnormal ECG When compared with ECG of 11-MAR-2022 18:31, Short bursts of PAT are no longer present Confirmed by Yordan Caceres ([id number]) on 03/23/2022 2:42:31 PM Referred By: Michell Miranda Confirmed By:Yordan Caceres
--- NOTE | 2022-03-23 14:47 | Electrocardiogram Report ---
Test Reason : Blood Pressure : / mmHG Vent. Rate : 084 BPM Atrial Rate : 084 BPM P-R Int : 140 ms QRS Dur : 086 ms QT Int : 370 ms P-R-T Axes : 090 087 049 degrees QTc Int : 437 ms Sinus rhythm with occasional Premature ventricular complexes and PAC's When compared with ECG of 11-MAR-2022 18:31, Premature ventricular complexes are now Present Vent. rate has decreased BY 60 BPM Confirmed by Yordan Caceres ([id number]) on 03/23/2022 2:46:51 PM Referred By: Michell Miranda Confirmed By:Yordan Caceres
[2022-03-23] MEDS: OSELTAMIVIR PHOSPHATE SUSP 30 MG/5 ML UDP PO SCH (14:49)
[2022-03-23] MEDS: KETOROLAC TROMETHAMINE 15 MG/ML VIAL IV PRN ×2 (14:59→21:05)
[2022-03-23] MEDS ORDERED: MoRPHine SULFATE 2 MG/ML CARP IV STA (15:33)
[2022-03-23] MEDS: LIDOCAINE 5% 1 PATCH TD SCH (16:36)
[2022-03-24] MEDS ORDERED: MoRPHine SULFATE 4 MG/ML 1 ML CARP\\VIAL IV STA (03:12)
[2022-03-24] MEDS: IPRATROPIUM BROMIDE NEB SOLN 0.02% 2.5 ML VIAL INH SCH ×3 (05:23→16:15)
[2022-03-24] MEDS: LEVALBUTEROL 1.25MG/0.5ML NEB INH SCH ×3 (05:23→16:14)
[2022-03-24] MEDS: methylPREDNISolone 40 MG in SYRINGE 0 ML IV SCH ×2 (05:34→13:01)
[2022-03-24] MEDS: cefTRIAXone SODIUM 1,000 MG in DEXTROSE 5% AD-VAN 50 ML IV SCH (05:34)
[2022-03-24] MEDS: ACETAMINOPHEN 325 MG TAB PO PRN (05:49)
[2022-03-24] MEDS: KETOROLAC TROMETHAMINE 15 MG/ML VIAL IV PRN (05:50)
[2022-03-24 07:06] LABS: Hematocrit (blood only) 30.9 % (40.1-51.0); Hemoglobin 10.4 g/dl (14.0-18.0); Mean Corpuscular Hemoglobin 33.5 pg (25.0-34.0); Mean Corpuscular Hgb Conc 33.7 g/dL (32.0-36.0); Mean Corpuscular Volume 99.7 fL (80.0-100.0); Mean Platelet Volume 9.8 fL (9.4-12.4); Platelet Count 264 K/uL (130-400); RDW Coefficient of Variation 12.1 % (11.5-14.5); RDW Standard Deviation 44.3 fL (36.4-46.3); White Blood Count 8.22 K/ul (4.8-10.8)
[2022-03-24 07:26] LABS: BUN Creatinine Ratio 38.4 (10-20); Calcium 8.4 mg/dl (8.5-10.1); Creatinine Clr Calc Pharmacy 25.2 ml/min; Est GFR (Non-African American) 48.3 ml/min; Magnesium 1.8 mg/dl (1.7-2.4); Phosphorus 3.5 mg/dl (2.5-4.9); Potassium 4.3 mmol/L (3.5-5.1)
[2022-03-24] MEDS ORDERED: LACTATED RINGER'S 500 ML IV ONE (07:47)
[2022-03-24] MEDS: ASPIRIN 81 MG ECTAB PO SCH (08:01)
[2022-03-24] MEDS: carvediloL 3.125 MG TAB PO SCH (08:01)
[2022-03-24] MEDS: lisinopril 10 MG TAB PO SCH (08:01)
[2022-03-24] MEDS: LIDOCAINE 5% 1 PATCH TD SCH (08:01)
[2022-03-24] MEDS: HEPARIN SOD 5,000 UNIT/0.5 ML VIAL SQ SCH (08:01)
[2022-03-24] MEDS: OSELTAMIVIR PHOSPHATE SUSP 30 MG/5 ML UDP PO SCH (08:09)
[2022-03-24] MEDS ORDERED: AZITHROMYCIN 250 MG TAB PO SCH (09:00)
--- NOTE | 2022-03-24 11:59 | Hospitalist Progress Note ---
Date of Service March 24, 2022 Assessment & Plan (1) Acute exacerbation of chronic obstructive pulmonary disease: Plan: - came with shortness of breath, wheezes, influenza A infection in setting of COPD - supplemental oxygen as needed - IVF - Tamiflu started as well as ceftriaxone and azithromycin - abx changed to doxycycline and amoxicillin for total 5 days - steroids for 5 days - wean O2 as tolerated - 2 step done and will need 2L NC oxygen with exertion - script in chart - PT/OT eval - likely discharge home today 03/24/2022 pending PT eval - patient declines inpatient rehab if recommended but open to home PT - continue to monitor (2) Influenza: Plan: - persistent infection as was positive 03/11/2022 - given advanced COPD and respiratory distress will treat with Tamiflu - steroids and abx as above as well - wean O2 as tolerated (3) Sepsis: Plan: - tachycardia, tachypnea/hypoxia, in the setting of influenza infection - sepsis likely due to influenza, cannot exclude super imposed bacterial infection - IVF - supplemental oxygen as needed, wean as tolerated - improved (4) CKD (chronic kidney disease) stage 3, GFR 30-59 ml/min: Plan: - Cr mildly elevated likely due to dehydration in the setting of sepsis - IVF for now - avoid nephrotoxic medications - trend UOP and Cr - monitor (5) GERD (gastroesophageal reflux disease): Plan: - noted, not on medications (6) HTN (hypertension): Plan: - continue home medications (7) HLD (hyperlipidemia): Plan: - not on statin - lipids - cholesterol and LDL in desired range - will hold off statin for now as per patient preference - follow up with primary - patient hesitant to start new medication at this time - would recommend statin given CAD and h/o [place] (8) CAD (coronary artery disease): Plan: - no cardiac chest pain - ECG without ischemic changes - troponin mildly elevated, no delta on repeat - trended down - stable Plan DVT ppx: heparin SC Code Status: Full Code Dispo: PCU Walker Mejia MD Hospital Medicine Admission and Anticipated Discharge Date Admission Date: March 23, 2022 Subjective Patient with HLD, COPD, CAD s/p stents, HTN, GERD, Crohn;s disease, CKD, h/o avascular necrosis of femoral head, glaucoma presented with shortness of breath, found to have influenza A infection. Started on Tamilfu, steroids, duoneb. Given abx to cover for superimposed CAP with doxycycline as patient had positive flu and returned to the hospital with worsening respiratory status. Improved with treatment and had 2 step that showed patient would benefit from 2L NC oxygen with exertion. Patient feels much better since admission. Appetite is much improved. cough improved and diffuse chest pain with coughing improved. Denies other chest pain, n/v/d, abdominal pain, dysuria. Review of Systems Review of Systems: All systems reviewed & are unremarkable except as noted in Subjective Physical Exam Physical Exam: GENERAL: The patient is of moderate build, NAD, cachectic. HEENT: Pupils equal, round and reactive to light. Oral mucosa moist. NECK: No JVD. No neck masses seen. CARDIOVASCULAR: S1 and S2 heard. Regular rate and rhythm. No murmur, no gallop. RESPIRATORY SYSTEM: Bilateral diminished breath sounds. Occasional wheezing, no crackles. ABDOMEN: Soft, bowel sounds present, nontender, no distention. CENTRAL NERVOUS SYSTEM: Alert and oriented. Speech is clear. No facial droop. Obeys simple commands. Moves extremities. EXTREMITIES: No edema, no erythema Results & Data Results & Data ([facility]) Vital Signs (Past 12 Hours) Vital Signs Temp Pulse Pulse Pulse Pulse Pulse Pulse 03/24/22 11:07 96 H 03/24/22 10:17 94 H 113 H 96 H 98 H 03/24/22 09:46 03/24/22 08:00 76 03/24/22 07:25 36.6 C 76 03/24/22 05:26 74 03/24/22 05:15 59 L Resp Resp Resp Resp Resp BP Pulse Ox 03/24/22 11:07 20 92 03/24/22 10:17 26 H 28 H 22 22 03/24/22 09:46 03/24/22 08:00 03/24/22 07:25 18 134/66 99 03/24/22 05:26 18 99 03/24/22 05:15 Pulse Ox Pulse Ox Pulse Ox Pulse Ox O2 Del Method O2 Flow Rate O2 Flow Rate 03/24/22 11:07 Room Air 03/24/22 10:17 92 85 L 90 92 2 03/24/22 09:46 Nasal Cannula 3 03/24/22 08:00 03/24/22 07:25 Nasal Cannula 3 03/24/22 05:26 Nasal Cannula 3 03/24/22 05:15 Diagnostic Findings Laboratory Results WBC 8.22 K/ul (4.8-10.8) 03/24/22 06:55 RBC 3.10 M/uL (4.63-6.08) L 03/24/22 06:55 Hgb 10.4 g/dl (14.0-18.0) L 03/24/22 06:55 Hct 30.9 % (40.1-51.0) L 03/24/22 06:55 MCV 99.7 fL (80.0-100.0) 03/24/22 06:55 MCH 33.5 pg (25.0-34.0) 03/24/22 06:55 MCHC 33.7 g/dL (32.0-36.0) 03/24/22 06:55 RDW Std Deviation 44.3 fL (36.4-46.3) 03/24/22 06:55 RDW Coeff of Dari 12.1 % (11.5-14.5) 03/24/22 06:55 Plt Count 264 K/uL (130-400) 03/24/22 06:55 MPV 9.8 fL (9.4-12.4) 03/24/22 06:55 Immature Gran % (Auto) 0.7 % 03/23/22 00:55 Neut % (Auto) 88.0 % 03/23/22 00:55 Lymph % (Auto) 6.8 % 03/23/22 00:55 [place] % (Auto) 4.4 % 03/23/22 00:55 Eos % (Auto) 0.1 % 03/23/22 00:55 Baso % (Auto) 0.0 % 03/23/22 00:55 Neut # (Auto) 8.47 K/uL (1.4-6.5) H 03/23/22 00:55 Lymph # (Auto) 0.65 K/uL (1.2-3.4) L 03/23/22 00:55 [place] # (Auto) 0.42 K/uL (0.24-0.82) 03/23/22 00:55 Eos # (Auto) 0.01 K/uL (0-0.50) 03/23/22 00:55 Baso # (Auto) 0.00 K/uL (0-0.2) 03/23/22 00:55 Immature Gran # (Auto) 0.07 K/uL (0.00-0.02) H 03/23/22 00:55 VBG pH 7.34 (7.36-7.41) L 03/23/22 01:41 VBG pCO2 59 mmHg (38-50) H 03/23/22 01:41 VBG pO2 18 mmHg 03/23/22 01:41 VBG HCO3 32 mmol/L 03/23/22 01:41 VBG O2 Saturation < 60.0 % 03/23/22 01:41 VBG Base Excess 4.3 mEq/L 03/23/22 01:41 Sodium 137 mmol/L (136-145) 03/24/22 06:55 Potassium 4.3 mmol/L (3.5-5.1) 03/24/22 06:55 Chloride 103 mmol/L (98-107) 03/24/22 06:55 Carbon Dioxide 29 mmol/L (21-32) 03/24/22 06:55 Anion Gap 5 (3-11) 03/24/22 06:55 BUN 53 mg/dl (6-23) H 03/24/22 06:55 Creatinine 1.38 mg/dl (0.6-1.4) 03/24/22 06:55 Est Cr Clr Drug Dosing 25.2 ml/min 03/24/22 06:55 Est GFR ( Amer) 56.0 ml/min 03/24/22 06:55 Est GFR (Non-Af Amer) 48.3 ml/min 03/24/22 06:55 BUN/Creatinine Ratio 38.4 (10-20) H 03/24/22 06:55 Glucose 172 mg/dl (70-99(Fasting)) H 03/24/22 06:55 Lactate 1.6 mmol/L (0.4-2.0) 03/23/22 03:52 Calcium 8.4 mg/dl (8.5-10.1) L 03/24/22 06:55 Phosphorus 3.5 mg/dl (2.5-4.9) 03/24/22 06:55 Magnesium 1.8 mg/dl (1.7-2.4) 03/24/22 06:55 Total Bilirubin 0.7 mg/dl (0.2-1.0) 03/23/22 00:55 Direct Bilirubin 0.1 mg/dl (0-0.2) 03/23/22 00:55 AST 18 U/L (13-39) 03/23/22 00:55 ALT 15 U/L (7-52) 03/23/22 00:55 Alkaline Phosphatase 64 U/L (34-104) 03/23/22 00:55 Troponin I High Sens 34.7 pg/ml (0-20) H 03/23/22 13:02 Total Protein 6.9 gm/dl (6.0-8.3) 03/23/22 00:55 Albumin 3.8 gm/dl (3.4-5.0) 03/23/22 00:55 Triglycerides 74 mg/dl (0-150) 03/23/22 06:56 Cholesterol 126 mg/dl (0-200) 03/23/22 06:56 LDL Cholesterol, Calc 52 mg/dl 03/23/22 06:56 VLDL Cholesterol, Calc 15 mg/dl (0-30) 03/23/22 06:56 HDL Cholesterol 59 mg/dl 03/23/22 06:56 Cholesterol/HDL Ratio 2.1 (0-5) 03/23/22 06:56 Procalcitonin 0.22 ng/ml (0-0.5) 03/23/22 00:55 Urine Color Yellow 03/23/22 03:39 Urine Appearance Clear (Clear) 03/23/22 03:39 Urine pH 5.0 (4.5-7.5) 03/23/22 03:39 Ur Specific [place] 1.022 (1.000-1.030) 03/23/22 03:39 Urine Protein Trace (Negative) H 03/23/22 03:39 Urine Glucose (UA) Negative (Negative) 03/23/22 03:39 Urine Ketones Negative (Negative) 03/23/22 03:39 Urine Blood Negative (Negative) 03/23/22 03:39 Urine Nitrite Negative (Negative) 03/23/22 03:39 Urine Bilirubin Negative (Negative) 03/23/22 03:39 Urine Urobilinogen Negative (Negative) 03/23/22 03:39 Ur Leukocyte Esterase Negative (Negative) 03/23/22 03:39 Urine WBC (Auto) 1-5 /hpf (0-5) 03/23/22 03:39 Urine RBC (Auto) 0-4 /hpf (0-4) 03/23/22 03:39 U Hyaline Cast (Auto) 1-5 /lpf (0-5) 03/23/22 03:39 U Epithel Cells (Auto) 5-10 /lpf (0-5) H 03/23/22 03:39 Urine Bacteria (Auto) Negative (Negative) 03/23/22 03:39 SARS-CoV-2 (PCR) NEGATIVE (Negative) 03/23/22 01:00 Influenza Type A (PCR) Positive (Neg) A* 03/23/22 01:00 Influenza Type B (PCR) Negative (Neg) 03/23/22 01:00 RSV (RT-PCR) Negative (Neg) 03/23/22 01:00 Impressions Chest X-Ray 03/23/22 00:41 XR chest 1V portable CLINICAL HISTORY: Sepsis. COMPARISON STUDY: Chest radiograph March 11, 2022. FINDINGS: Lung hyperexpansion is again noted. There is no pneumothorax or pleural effusion. There is no consolidation. Cardiac size is normal. Mediastinal contours are normal. IMPRESSION: No acute cardiopulmonary findings. ACT 112: Negative or not required by law. Electronically signed by: Charles Maza M.D. 03/23/2022 7:[address] 03/23/22 03:23 CT OF THE CHEST WITHOUT IV CONTRAST CLINICAL HISTORY: Shortness of breath. Flu. COMPARISON STUDY: Chest radiograph March 11, 2022 and March 23, 2022. CT DOSE: 316.25 mGy.cm TECHNIQUE: Axial images of the chest were obtained without IV contrast. Images were reviewed in the axial, sagittal, and coronal planes. IV contrast was not administered for this examination. Automated exposure control was utilized for the study. A dose lowering technique was utilized adhering to the principles of ALARA. FINDINGS: No enlarged axillary, mediastinal or hilar lymph nodes are present. There is no pericardial effusion. Suspected stent within the LAD. No pneumothorax or pleural effusion is noted. Lung hyperexpansion. Lungs are suboptimally assessed due to respiratory motion. Mild emphysema is present. In addition, diffuse bronchial wall thickening is noted. This is most pronounced within the lower lobes. Numerous tree-in-bud nodules are noted with lower lung predominance. Small foci of consolidation within the bilateral lower lobes are present. There are several old thoracic spine compression deformity. An old sternal fracture is present. Hyperdense wall thickening of the gallbladder is similar to prior abdominal CTs. IMPRESSION: 1. Bronchial wall thickening with multifocal tree-in-bud nodules and small foci of consolidation within the lower lobes. The findings are consistent with an infectious process. 2. Mild emphysema. Lung hyperexpansion. ACT 112: Negative or not required by law. Electronically signed by: Charles Maza M.D. 03/23/2022 6:54 AM Medications Administered Current Inpatient Medications Acetaminophen (Acetaminophen 325 Mg Tab) 650 mg PO Q4H PRN PRN Reason: Pain or Fever Stop: 04/22/22 04:59 Last Admin: 03/24/22 05:49 Dose: 650 mg Albuterol (Albut/Ipratrop 3mg/0.5mg Neb 3 Ml Vial) 3 ml NEB Q4R PRN; Protocol PRN Reason: shortness of bretah Stop: 04/22/22 14:59 Aspirin (Aspirin 81 Mg Ectab) 81 mg PO DAILY KEVAN Stop: 04/22/22 08:59 Last Admin: 03/24/22 08:01 Dose: 81 mg Azithromycin (Azithromycin 250 Mg Tab) 250 mg PO QAM KEVAN Stop: 03/27/22 20:59 Last Admin: 03/24/22 08:01 Dose: 250 mg Carvedilol (Carvedilol 3.125 Mg Tab) 3.125 mg PO DAILY KEVAN Stop: 04/22/22 08:59 Last Admin: 03/24/22 08:01 Dose: 3.125 mg Doxycycline Hyclate (Doxycycline Hyclate 100 Mg Cap) 100 mg PO BID KEVAN Stop: 03/28/22 11:59 Heparin Sodium (Porcine) (Heparin Sod 5,000 Unit/0.5 Ml Vial) 5,000 units SQ Q12 KEVAN Stop: 04/22/22 08:59 Last Admin: 03/24/22 08:01 Dose: 5,000 units Methylprednisolone 40 mg/ (Syringe) 0.64 mls @ 1.5 mls/min IV Q8H KEVAN Stop: 04/22/22 05:59 Last Admin: 03/24/22 05:34 Dose: 1.5 mls/min Ipratropium [place] (Ipratropium [place] Neb Soln 0.02% 2.5 Ml Vial) 0.5 mg INH Q2H PRN PRN Reason: Shortness Of Breath Or Wheezing Stop: 04/22/22 04:59 Ipratropium [place] (Ipratropium [place] Neb Soln 0.02% 2.5 Ml Vial) 0.5 mg INH QIDR [facility] Stop: 04/22/22 06:59 Last Admin: 03/24/22 10:55 Dose: 0.5 mg Ketorolac Tromethamine (Ketorolac Tromethamine 15 Mg/Ml Vial) 15 mg IV Q6H PRN PRN Reason: Pain Stop: 03/28/22 11:03 Last Admin: 03/24/22 05:50 Dose: 15 mg Levalbuterol HCl (Levalbuterol 1.25mg/0.5ml Neb) 1.25 mg INH Q2H PRN PRN Reason: Shortness Of Breath Or Wheezing Stop: 04/22/22 04:59 Levalbuterol HCl (Levalbuterol 1.25mg/0.5ml Neb) 1.25 mg INH QIDR [facility] Stop: 04/22/22 06:59 Last Admin: 03/24/22 10:55 Dose: 1.25 mg Lidocaine (Lidocaine 5% 1 Patch) 1 patch TD QAM [facility] Stop: 04/22/22 15:44 Last Admin: 03/24/22 08:01 Dose: 1 patch Lisinopril (Lisinopril 10 Mg Tab) 10 mg PO DAILY [facility] Stop: 04/22/22 08:59 Last Admin: 03/24/22 08:01 Dose: 10 mg Miscellaneous (Remove Lidoderm Patch) 1 each N/A DAILY@2100 [facility] Stop: 04/22/22 20:59 Last Admin: 03/23/22 20:25 Dose: 1 each Nitroglycerin (Nitroglycerin Sl 0.4 Mg/Tab Tab) 0.4 mg SL UD PRN PRN Reason: Chest Pain Stop: 04/22/22 04:59 Oseltamivir Phosphate (Oseltamivir Phosphate Susp 30 Mg/5 Ml Udp) 30 mg PO DAILY [facility]; Protocol Stop: 03/28/22 08:59 Last Admin: 03/24/22 08:09 Dose: 30 mg Polyethylene Glycol (Polyethylene (Miralax) 17 Gm Pack) 17 gm PO DAILY PRN PRN Reason: Constipation Stop: 04/22/22 04:59
[2022-03-24] MEDS ORDERED: DOXYCYCLINE HYCLATE 100 MG CAP PO SCH (12:00)
--- NOTE | 2022-03-24 12:07 | Electrocardiogram Report ---
Test Reason : Blood Pressure : / mmHG Vent. Rate : 057 BPM Atrial Rate : 057 BPM P-R Int : 112 ms QRS Dur : 086 ms QT Int : 444 ms P-R-T Axes : 069 063 074 degrees QTc Int : 432 ms Sinus bradycardia with sinus arrhythmia Otherwise normal ECG When compared with ECG of 23-MAR-2022 03:33, (unconfirmed) Premature ventricular complexes are no longer Present Confirmed by Pieter Merino ([id number]) on 03/24/2022 12:07:24 PM Referred By: Michell Miranda Confirmed By:Pieter Merino
[2022-03-24] MEDS ORDERED: AMOXICILLIN 500 MG CAP PO SCH (12:30)
--- NOTE | 2022-03-24 16:55 | Discharge Summary ---
Date of Service March 24, 2022 Admission HPI Per Admitting Provider A 81-year-old male with past medical history significant for hyperlipidemia, hyperglycemia, COPD, CAD, hypertension, GERD, Crohn's disease, history of calculus of kidney, history of chronic kidney disease stage III, avascular necrosis of femoral head, history of glaucoma, cervicalgia, peripheral neuropathy, anemia, depression, history of ST-elevated [place], history of cardiac arrest, presents with shortness of breath. The patient was here in the ER on 03/11/2022 and was found to have influenza A. At that time, he wanted to go home and got discharged on doxycycline and a short course of prednisone, but today he was having increased working of breathing and it started yesterday evening. As per EMS, he was found to have a pulse ox around 73% and seems he was agitated, he was placed on CPAP, given Solu-Medrol 125 mg, and brought in here. With the CPAP, his oxygenation improved into 94%. Currently he is on non- rebreather mask, saturating okay. Able to speak, can give his history. Says he is having shortness of breath and cough, and not bringing any phlegm. He denies any fevers and he has a lot of pain in the left lower chest. The pain is more when taking a deep breath. Denies any nausea, vomiting. No Abdominal pain, no diarrhea. Appetite is okay. No headache, no blurred visions, no runny nose, no sore throat. Currently, hemodynamics are okay. Admission Exam Per Admitting Provider GENERAL: The patient is of moderate build, in mild respiratory distress. VITAL SIGNS: Temperature 36.2, pulse 99, respiratory rate 16, blood pressure 147/87, oxygen 98% on nonrebreather, 15 liters. HEENT: Pupils equal, round and reactive to light. Oral mucosa moist. NECK: No JVD. No neck masses seen. CARDIOVASCULAR: S1 and S2 heard. Regular rate and rhythm. No murmur, no gallop. RESPIRATORY SYSTEM: Bilateral diminished breath sounds. Occasional wheezing, no crackles. ABDOMEN: Soft, bowel sounds present, nontender, no distention. CENTRAL NERVOUS SYSTEM: Alert and oriented. Speech is clear. No facial droop. Obeys simple commands. Moves extremities. EXTREMITIES: No edema, no erythema. Principal Diagnosis influenza pneumonia Discharge Exam GENERAL: The patient is of moderate build, NAD, cachectic. HEENT: Pupils equal, round and reactive to light. Oral mucosa moist. NECK: No JVD. No neck masses seen. CARDIOVASCULAR: S1 and S2 heard. Regular rate and rhythm. No murmur, no gallop. RESPIRATORY SYSTEM: Bilateral diminished breath sounds. Occasional wheezing, no crackles. ABDOMEN: Soft, bowel sounds present, nontender, no distention. CENTRAL NERVOUS SYSTEM: Alert and oriented. Speech is clear. No facial droop. Obeys simple commands. Moves extremities. EXTREMITIES: No edema, no erythema Discharge Data Allergies Allergy/AdvReac Type Severity Reaction Status Date / Time codeine Allergy Severe UNKNOWN--ON Verified 03/23/22 02:02 GMG MED LIST latex Allergy Mild RASH Verified 03/23/22 02:02 Iodinated Contrast Media AdvReac Intermediate HOT,SHAKEY Verified 03/23/22 02:02 Consultations 03/23/22 02:46 ED Decision to Admit Stat Ordered Studies 03/23/22 03:23 CT chest diagnostic wo con Urgent Hospital Course (1) Acute exacerbation of chronic obstructive pulmonary disease: - came with shortness of breath, wheezes, influenza A infection in setting of COPD - supplemental oxygen as needed - IVF - Tamiflu started as well as ceftriaxone and azithromycin - abx changed to doxycycline and amoxicillin for total 5 days - steroids for 5 days - wean O2 as tolerated - 2 step done and will need 2L NC oxygen with exertion - script in chart, set up by CM - PT/OT eval - likely discharge home today 03/24/2022 - ok for home PT (2) Influenza: - persistent infection as was positive 03/11/2022 - given advanced COPD and respiratory distress will treat with Tamiflu - steroids and abx as above as well - wean O2 as tolerated - O2 with exertion as above (3) Sepsis: - tachycardia, tachypnea/hypoxia, in the setting of influenza infection - sepsis likely due to influenza, cannot exclude super imposed bacterial infection - IVF - supplemental oxygen as needed, wean as tolerated - see above - improved (4) CKD (chronic kidney disease) stage 3, GFR 30-59 ml/min: - Cr mildly elevated likely due to dehydration in the setting of sepsis - IVF for now - avoid nephrotoxic medications - trend UOP and Cr - monitor (5) GERD (gastroesophageal reflux disease): - noted, not on medications (6) HTN (hypertension): - continue home medications (7) HLD (hyperlipidemia): - not on statin - lipids - cholesterol and LDL in desired range - will hold off statin for now as per patient preference - follow up with primary - patient hesitant to start new medication at this time - would recommend statin given CAD and h/o [place] (8) CAD (coronary artery disease): - no cardiac chest pain - ECG without ischemic changes - troponin mildly elevated, no delta on repeat - trended down - stable Plan DVT ppx: heparin SC Code Status: Full Code Dispo: PCU Walker Mejia MD [facility] Medicine Total Time Total Time Spent Total Time Spent (In Minutes): 29 Total Time Includes: Examination of the Patient, Discharge Planning and Medication Reconciliation Discharge Plan Discharge Items Patient Disposition: Home - Home Health Services Reason For Visit: SOB, RESP DISTRESS Discharge Diagnosis: Influenza pneumonia Activity: Resume your previous activity Non-emergency contact: Primary Care Provider and Training Assistant Call non-emergency contact if: you have any medication questions and your symptoms worsen Follow-up/Referrals: Michell Miranda MD [Primary Care Provider] - Diet: Heart Healthy Diet Texture: Easy to Chew Addtl Attending Provider Instructions: You were admitted with influenza pneumonia and required supplemental oxygen for support. You were started on Tamiflu, which is an antiviral for the flu. You were also given antibiotics in case of a bacterial pneumonia since you also tested positive for the flu on 03/11/2022 and this makes you more susceptible to bacterial infection as well. You were also started on steroid. You will continue all of these medications for 5 days total - last dose should be on 03/27/2022. 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 Pending Studies at Discharge: No Stand-Alone Forms: My [facility], Smoking Cessation Medications and DC Order Prescriptions: New amoxicillin 500 mg Capsule 500 mg PO BID 4 Days Qty: 8 0RF doxycycline hyclate 100 mg Capsule 100 mg PO BID 4 Days Qty: 8 0RF oseltamivir [Tamiflu] 6 mg/mL Suspension For Reconstitution 30 mg PO DAILY 4 Days Qty: 20 0RF prednisone 20 mg tablet 20 mg PO DAILY 9 Days Qty: 11 0RF Rx Instructions: 2 tabs daily x3 days, 1 tab daily x3 days, 0.5 tabs daily x3 days Continued carvedilol 3.125 mg tablet 3.125 mg PO DAILY lisinopril 10 mg tablet 10 mg PO DAILY nitroglycerin 0.4 mg tablet, sublingual 0.4 mg sublingual DIRECTED PRN (Reason: Chest Pain) Combivent Respimat 20-100 mcg/actuation mist 1 puff INHALATION QID albuterol sulfate 0.63 mg/3 mL Solution For Nebulization 0.63 mg INHALATION QID PRN (Reason: Shortness Of Breath) aspirin 81 mg Tablet,Delayed Release (Dr/Ec) 81 mg PO DAILY cyanocobalamin (vitamin B-12) 1,000 mcg/mL Solution 1,000 mcg IM Q4WK Discontinued prednisone 20 mg tablet 20 mg PO DIRECTED Discharge Orders: Discharge Order (Routine); Ordered 03/24/22 Ordered By: Walker Mejia Admission Data Admit Date/Time: 03/23/22 03:18 Attending Provider: Walker Mejia Admit Provider: Rajat Viveros Primary Care Provider: Michell Miranda Other Providers: Rajat Viveros ; Arnold Loco [facility] Other Interventions: Discharge Summary Assessment (RN) Last Done: 03/24/22 14:25
== END 2022-03-24 17:44 | disposition home health service (06) | DRG 871 ==
LOC: ED 00:37 → 2S 03:18

== ENCOUNTER 2023-10-23 19:25 | Inpatient (IN) ==
[2023-10-23 20:11] LABS: HCO3 VBG 29 mmol/L; Oxygen Saturation VBG < 60.0 %; PCO2 VBG 49 mmHg (38-50); PO2 VBG < 20 mmHg; pH VBG 7.38 (7.36-7.41)
[2023-10-23] MEDS: ACETAMINOPHEN 1,000 MG/100 ML VIAL IV STA (20:18)
[2023-10-23 20:27] LABS: Basophils # (auto) 0.04 K/uL (0.00-0.20); Basophils % (auto) 0.7 %; Eosinophils # (auto) 0.09 K/uL (0.00-0.50); Eosinophils % (auto) 1.6 %; Hematocrit (blood only) 40.8 % (42.0-52.0); Hemoglobin 13.9 g/dl (14.0-18.0); Immature Granulocytes # (auto) 0.06 K/uL (0.01-0.20); Immature Granulocytes % (auto) 1.1 %; Lymphocytes # (auto) 1.21 K/uL (1.20-3.40); Lymphocytes % (auto) 21.7 %; Mean Corpuscular Hemoglobin 32.2 pg (25.0-34.0); Mean Corpuscular Hgb Conc 34.1 g/dL (32.0-36.0); Mean Corpuscular Volume 94.4 fL (80.0-100.0); Mean Platelet Volume 9.8 fL (9.4-12.4); Monocytes # (auto) 0.74 K/uL (0.11-0.59); Monocytes % (auto) 13.3 %; Neutrophils # (auto) 3.44 K/uL (1.40-6.50); Neutrophils % (auto) 61.6 %; Platelet Count 213 K/uL (130-400); RDW Coefficient of Variation 12.5 % (11.5-14.5); RDW Standard Deviation 43.3 fL (36.4-46.3); Red Blood Count 4.32 M/uL (4.70-6.10); White Blood Count 5.58 K/ul (4.8-10.8)
[2023-10-23 20:47] LABS: Troponin I High Sensitivity 19.8 pg/ml (0-20)
[2023-10-23 20:51] LABS: Albumin Level 4.1 gm/dl (3.4-5.0); BUN Creatinine Ratio 16.1 (10-20); Bilirubin,Total 0.5 mg/dl (0.2-1.0); Calcium 9.3 mg/dl (8.6-10.3); Creatinine Clr Calc Pharmacy 32.7 ml/min; Est GFR (African American) 55.7 ml/min; Magnesium 1.2 mg/dl (1.7-2.4); Potassium 3.9 mmol/L (3.5-5.1)
[2023-10-23 20:52] LABS: INR 1.1 (0.9-1.1); Partial Thromboplastin Ratio 1.1; Partial Thromboplastin Time 29 Seconds (21-31); Prothrombin Time 11.7 Seconds (9.0-12.0)
[2023-10-23 21:04] LABS: Bilirubin Direct 0.1 mg/dl (0-0.2)
[2023-10-23 21:05] LABS: Influenza A virus by PCR Negative (Neg); Influenza B virus by PCR Negative (Neg); RSV by PCR Negative (Neg); SARS CoV2 RNA(COVID-19) Ceph POSITIVE (Negative)
--- NOTE | 2023-10-23 22:21 | Emergency Department Note ---
History of Present Illness General Chief complaint: Weakness Stated complaint: WEAKNESS Time Seen by Provider: 10/23/23 19:34 History of Present Illness Provider complaint: Weakness Maximum Pain Intensity: 6 83-year-old male presents emergency department for weakness. Patient reports he been feeling weak for the last 3 days. No falls. No trauma. No chest pain difficulty breathing nausea vomiting diarrhea or abdominal pain. No cough. Home Medications Medication Instructions Recorded Confirmed Type albuterol sulfate 0.63 mg/3 mL 0.63 mg inhalation QID PRN 08/13/20 10/23/23 History solution for nebulization Shortness Of Breath cyanocobalamin (vitamin B-12) 1,000 mcg IM Q4WK 08/13/20 10/23/23 History 1,000 mcg/mL injection solution ipratropium 20 mcg-albuterol 100 1 puff inhalation QID PRN 08/13/20 10/23/23 History mcg/actuation mist for inhalation Shortness Of Breath Or Wheezing (Combivent Respimat) nitroglycerin 0.4 mg sublingual 0.4 mg sublingual DIRECTED PRN 08/13/20 10/23/23 History tablet Chest Pain acetaminophen 650 mg 1,300 mg PO Q12H PRN Pain 10/23/23 10/23/23 History tablet,extended release (Tylenol Arthritis Pain) aspirin 325 mg tablet 325 mg PO DAILY 10/23/23 10/23/23 History diclofenac sodium 1 % topical gel 4 g topical HS PRN .affected area 10/23/23 10/23/23 History lidocaine 4 % topical patch 1 patch topical DAILY PRN Pain 10/23/23 10/23/23 History Allergies Allergy/AdvReac Type Severity Reaction Status Date / Time codeine Allergy Severe UNKNOWN--ON Verified 10/23/23 22:09 GMG MED LIST latex Allergy Mild RASH Verified 10/23/23 22:09 Iodinated Contrast Media AdvReac Intermediate HOT,SHAKEY Verified 10/23/23 22:09 Past Med/Surg History Problem List (Updated 10/23/23 @ 22:33 by Gregory Canas MD) COVID-19 (Acute) Hypomagnesemia (Acute) Elevated troponin History of COVID-19 (Acute) Influenza (Acute) Proctitis (Acute) Fecal impaction in rectum Crohn's disease Hereditary and idiopathic neuropathy CKD (chronic kidney disease) stage 3, GFR 30-59 ml/min GERD (gastroesophageal reflux disease) HTN (hypertension) HLD (hyperlipidemia) CAD (coronary artery disease) August, during which time he was cared for in [place] and underwent coronary intervention of the left anterior descending coronary artery with 2 areas stented, both the proximal and mid LAD with drug-eluting stents. He also had PTCA of the first diagonal branch at that time. A residual 70% mid right coronary artery stenosis and 30% circumflex stenosis was also present. 12/04/2012 - vfib arrest, defib x 3, along with CPRO, cardiac cath previous LAD stents patent, underwent BMS to culprit RCA stenosis COPD (chronic obstructive pulmonary disease) Abdominal pain, lower (Acute) Constipation (Acute) Anemia (Acute) Dehydration (Acute) Medical History Sepsis Acute exacerbation of chronic obstructive pulmonary disease History of ventricular fibrillation 12/04/2012 - vfib arrest, defib x 3, along with CPRO, cardiac cath previous LAD stents patent, underwent BMS to culprit RCA stenosis Nephrolithiasis Depression Pernicious anemia Glaucoma Duodenal ulcer Surgical History 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 History of resection of small bowel 2/2 to Crohn's, dx 1981, resection of terminal ileum for medically unresponsive obstruction 1985; 1991; 1993 History of extraction of renal calculus History of inguinal hernia repair History of cholecystectomy History of appendectomy History of coronary artery balloon dilation WILFREDO 09/2011 Family History Mother Alzheimer disease Brother Diabetes Hypertension Father Heart disease Other Cancer Social History Smoking Status: Former smoker Tobacco Type: Cigarettes Second Hand Exposure: No; Do You Dip or Chew Tobacco: No; Hx Alcohol Use: No Hx Substance Use: No Preferred Language: Serbian Communication Ability: Effective Personal Banking Officer Required: No Beliefs That Will Affect Care: None marital status: Current Living Situation: Spouse Feels Safe at Home: Yes Assistive Devices: Cane and Nebulizer Physical Exam Vital Signs Vital Signs - 24 hr 10/23/23 19:42 10/23/23 19:43 10/23/23 19:43 Temperature 37.8 C H Temperature Source Oral Pulse Rate 102 H 107 H 107 H Pulse Rate [Apical] Pulse Rate from SpO2 Sensor 80 Pulse Rhythm Regular Pulse Rhythm [Apical] Pulse Strength Normal Respiratory Rate 17 20 20 Respiratory Effort / Characteristics Non-Labored Spontaneous Respiratory Depth Normal Respiratory Pattern Regular Blood Pressure 147/75 H Blood Pressure [Right Arm] Blood Pressure Mean 99 Blood Pressure Mean [Right Arm] Blood Pressure Position Lying Pulse Oximetry 92 94 94 Oxygen Delivery Method Room Air Room Air Sepsis Recent Fever Within 48 Hours No Sepsis New/Unexplained Change in Mental Status No Sepsis Action Taken by Nursing No Action Required 10/23/23 19:43 10/23/23 19:43 10/23/23 20:00 Temperature Temperature Source Pulse Rate 107 H Pulse Rate [Apical] Pulse Rate from SpO2 Sensor Pulse Rhythm Pulse Rhythm [Apical] Pulse Strength Respiratory Rate Respiratory Effort / Characteristics Respiratory Depth Normal Respiratory Pattern Blood Pressure 160/79 H Blood Pressure [Right Arm] Blood Pressure Mean 141 Blood Pressure Mean [Right Arm] Blood Pressure Position Pulse Oximetry Oxygen Delivery Method Sepsis Recent Fever Within 48 Hours Sepsis New/Unexplained Change in Mental Status Sepsis Action Taken by Nursing 10/23/23 20:00 10/23/23 20:18 10/23/23 20:22 Temperature 38.1 C H Temperature Source Oral Pulse Rate 100 H Pulse Rate [Apical] 98 H Pulse Rate from SpO2 Sensor 83 Pulse Rhythm Pulse Rhythm [Apical] Irregular Pulse Strength Respiratory Rate 19 20 Respiratory Effort / Characteristics Respiratory Depth Respiratory Pattern Blood Pressure 160/79 H Blood Pressure [Right Arm] 160/79 H Blood Pressure Mean 141 Blood Pressure Mean [Right Arm] 106 Blood Pressure Position Pulse Oximetry 85 L 96 Oxygen Delivery Method Room Air Sepsis Recent Fever Within 48 Hours Sepsis New/Unexplained Change in Mental Status Sepsis Action Taken by Nursing 10/23/23 20:36 10/23/23 21:00 10/23/23 21:01 Temperature Temperature Source Pulse Rate 88 92 H Pulse Rate [Apical] Pulse Rate from SpO2 Sensor 73 Pulse Rhythm Pulse Rhythm [Apical] Pulse Strength Respiratory Rate 20 28 H Respiratory Effort / Characteristics Respiratory Depth Respiratory Pattern Blood Pressure 134/59 L 138/54 L Blood Pressure [Right Arm] Blood Pressure Mean 84 110 Blood Pressure Mean [Right Arm] Blood Pressure Position Pulse Oximetry 93 85 L Oxygen Delivery Method Sepsis Recent Fever Within 48 Hours Sepsis New/Unexplained Change in Mental Status Sepsis Action Taken by Nursing 10/23/23 21:01 10/23/23 21:01 10/23/23 21:36 Temperature Temperature Source Pulse Rate 92 H Pulse Rate [Apical] Pulse Rate from SpO2 Sensor 82 Pulse Rhythm Pulse Rhythm [Apical] Pulse Strength Respiratory Rate 18 Respiratory Effort / Characteristics Respiratory Depth Respiratory Pattern Blood Pressure 138/54 L 138/54 L Blood Pressure [Right Arm] Blood Pressure Mean 110 110 Blood Pressure Mean [Right Arm] Blood Pressure Position Pulse Oximetry 93 Oxygen Delivery Method Sepsis Recent Fever Within 48 Hours Sepsis New/Unexplained Change in Mental Status Sepsis Action Taken by Nursing 10/23/23 21:51 10/23/23 22:00 10/23/23 22:00 Temperature Temperature Source Pulse Rate 105 H Pulse Rate [Apical] Pulse Rate from SpO2 Sensor 80 Pulse Rhythm Pulse Rhythm [Apical] Pulse Strength Respiratory Rate 15 Respiratory Effort / Characteristics Respiratory Depth Respiratory Pattern Blood Pressure 134/59 L 134/59 L Blood Pressure [Right Arm] Blood Pressure Mean 79 79 Blood Pressure Mean [Right Arm] Blood Pressure Position Pulse Oximetry 94 Oxygen Delivery Method Sepsis Recent Fever Within 48 Hours Sepsis New/Unexplained Change in Mental Status Sepsis Action Taken by Nursing 10/23/23 22:03 Temperature Temperature Source Pulse Rate 90 Pulse Rate [Apical] Pulse Rate from SpO2 Sensor 77 Pulse Rhythm Pulse Rhythm [Apical] Pulse Strength Respiratory Rate 20 Respiratory Effort / Characteristics Respiratory Depth Respiratory Pattern Blood Pressure Blood Pressure [Right Arm] Blood Pressure Mean Blood Pressure Mean [Right Arm] Blood Pressure Position Pulse Oximetry 93 Oxygen Delivery Method Sepsis Recent Fever Within 48 Hours Sepsis New/Unexplained Change in Mental Status Sepsis Action Taken by Nursing Physical Exam HENT: Exam performed. - Head: Normocephalic and atraumatic. - Right Ear: External ear normal. No mastoid erythema - Left Ear: External ear normal. No mastoid erythema - Mouth/Throat: The oropharynx is clear and moist. No trismus in the jaw. No dental abscesses or uvula swelling. No oropharyngeal exudate or tonsillar abscesses. EYES: Conjunctivae and EOM are normal. Pupils are equal, round, and reactive to light. Right eye exhibits no discharge. Left eye exhibits no discharge. No scleral icterus. NECK: Normal range of motion. Neck supple. No JVD present. No spinous process tenderness present. No carotid bruit present. No rigidity. No tracheal deviation and normal range of motion present. CV: Normal rate, regular rhythm, normal heart sounds and intact distal pulses. There is no peripheral edema. Palpable radial pulses bue. PULM/CHEST: Effort normal and breath sounds normal. No respiratory distress. No stridor. He has no wheezes. He has no rales. - Chest Wall: He exhibits no tenderness. ABD: The abdomen is soft. He has no distension. No mass is present. There is no tenderness. There is no rebound, no guarding, no Farley's sign and no tenderness at McBurney's point. Rovsig negative. MUSC/SKEL: Normal range of motion. There is no peripheral edema, tenderness or deformity. LYMPH: No cervical adenopathy. NEURO: He is alert and oriented to person, place, and time. He has normal strength. No cranial nerve deficit or sensory deficit. Coordination and gait normal. GCS eye subscore is 4. GCS verbal subscore is 5. GCS motor subscore is 6. Cerebellar tests wnl. SKIN: Skin is warm and dry. He is not diaphoretic. PSYCH: He has a normal mood and affect. Behavior is normal. Judgment and thought content normal. Course Course 1933: The patient was evaluated in room B6. A complete history and physical exam was performed Cardiac monitoring: An order was placed for continuous cardiac monitoring. The monitor shows a rate of 100 with sinus rhythm interpreted by me Patient is febrile and tachycardic. Sepsis protocols initiated. 1999: Chest x-ray reviewed by me shows no infiltrate however there does appear to be deformity of the distal right humerus. Will order x-rays of the humerus and elbow. 2019: X-ray shows old fractures that are healed of the distal right humerus. Patient messing he did break his arm many many years ago. Full range of motion on exam with no tenderness on exam of the right arm. 6: Vital signs stable. Labs are unremarkable with exception of a low magnesium and the patient being COVID-positive. Family states that the patient was too weak to go home. Patient be admitted for magnesium repletion IV fluids. Discussed case with [facility] hospitalist Dr. Barnett who will evaluate the patient for admission. Administered Medications Discontinued Medications Acetaminophen (Ofirmev) 1,000 mg in 100 mls @ 400 mls/hr IV NOW STA Stop: 10/23/23 20:22 Last Infusion: 10/23/23 21:23 Dose: Infused Documented By: Admin: 10/23/23 20:18 Dose: 400 mls/hr Documented By: ELEONORA Medical Decision Making Laboratory Data Attestation: I reviewed the patient's lab results. 10/23/23 19:45 10/23/23 19:45 Lab Results 10/23/23 10/23/23 10/23/23 Range/Units 19:45 20:00 21:07 WBC 5.58 (4.8-10.8) K/ul RBC 4.32 L (4.70-6.10) M/uL Hgb 13.9 L (14.0-18.0) g/dl Hct 40.8 L (42.0-52.0) % MCV 94.4 (80.0-100.0) fL MCH 32.2 (25.0-34.0) pg MCHC 34.1 (32.0-36.0) g/dL RDW Std Deviation 43.3 (36.4-46.3) fL RDW Coeff of Dari 12.5 (11.5-14.5) % Plt Count 213 (130-400) K/uL MPV 9.8 (9.4-12.4) fL Immature Gran % (Auto) 1.1 % Neut % (Auto) 61.6 % Lymph % (Auto) 21.7 % [place] % (Auto) 13.3 % Eos % (Auto) 1.6 % Baso % (Auto) 0.7 % Neut # (Auto) 3.44 (1.40-6.50) K/uL Lymph # (Auto) 1.21 (1.20-3.40) K/uL [place] # (Auto) 0.74 H (0.11-0.59) K/uL Eos # (Auto) 0.09 (0.00-0.50) K/uL Baso # (Auto) 0.04 (0.00-0.20) K/uL Immature Gran # (Auto) 0.06 (0.01-0.20) K/uL PT 11.7 (9.0-12.0) Seconds INR 1.1 (0.9-1.1) APTT 29 (21-31) Seconds PTT Ratio 1.1 VBG pH 7.38 (7.36-7.41) VBG pCO2 49 (38-50) mmHg VBG pO2 < 20 mmHg VBG HCO3 29 mmol/L VBG O2 Saturation < 60.0 % VBG Base Excess 3.0 mEq/L Sodium 137 (136-145) mmol/L Potassium 3.9 (3.5-5.1) mmol/L Chloride 100 (98-107) mmol/L Carbon Dioxide 27 (21-32) mmol/L Anion Gap 10 (3-11) BUN 22 (6-23) mg/dl Creatinine 1.37 (0.6-1.4) mg/dl Est Cr Clr Drug Dosing 32.7 ml/min Est GFR ( Amer) 55.7 ml/min Est GFR (Non-Af Amer) 48.0 ml/min BUN/Creatinine Ratio 16.1 (10-20) Glucose 102 H (70-99(Fasting)) mg/dl Lactate 1.3 (0.4-2.0) mmol/L Calcium 9.3 (8.6-10.3) mg/dl Magnesium 1.2 L (1.7-2.4) mg/dl Total Bilirubin 0.5 (0.2-1.0) mg/dl Direct Bilirubin 0.1 (0-0.2) mg/dl AST 22 (13-39) U/L ALT 8 (7-52) U/L Alkaline Phosphatase 53 (34-104) U/L Troponin I High Sens 19.8 (0-20) pg/ml Total Protein 7.0 (6.0-8.3) gm/dl Albumin 4.1 (3.4-5.0) gm/dl Procalcitonin 0.37 (0-0.5) ng/ml Urine Color Yellow Urine Appearance Clear (Clear) Urine pH 5.5 (4.5-7.5) Ur Specific [place] 1.020 (1.000-1.030) Urine Protein 1+ H (Negative) Urine Glucose (UA) Negative (Negative) Urine Ketones Negative (Negative) Urine Blood Negative (Negative) Urine Nitrite Negative (Negative) Urine Bilirubin Negative (Negative) Urine Urobilinogen Negative (Negative) Ur Leukocyte Esterase Negative (Negative) Urine WBC (Auto) 0-5 (0-5) /hpf Urine RBC (Auto) 0-2 (0-2) /hpf U Hyaline Cast (Auto) 6-10 H (0-2) /lpf U Epithel Cells (Auto) 0-2 (0-2) /hpf Urine Bacteria (Auto) None Seen (None Seen) Hyaline Casts Present A (None Presnt) /lpf SARS-CoV-2 (PCR) POSITIVE (Negative) Influenza Type A (PCR) Negative (Neg) Influenza Type B (PCR) Negative (Neg) RSV (RT-PCR) Negative (Neg) Imaging Data Attestation: I personally reviewed and interpreted this imaging study as follows: My Impression: Right elbow: Old healed distal right humerus fracture no acute fracture Right humerus: Old healed distal right humerus fracture no acute fracture Chest x-ray: Chest x-ray negative. Airway clear. No pneumothorax. No consolidation. No cardiomegaly or cephalization.. No free air under the diaphragm. Deformity of the distal right humerus ECG Data Attestation: I personally reviewed and interpreted this ECG as follows: Rate (beats per minute): 102 Rhythm: + sinus with SA ECG Intervals/blocks: + Normal QRS, + Normal AK and + Normal QT-c ECG ST segments: + Normal ST segments [facility] Narrative 193: The patient was evaluated in room B6. A complete history and physical exam was performed Cardiac monitoring: An order was placed for continuous cardiac monitoring. The monitor shows a rate of 100 with sinus rhythm interpreted by me Patient is febrile and tachycardic. Sepsis protocols initiated. 1999: Chest x-ray reviewed by me shows no infiltrate however there does appear to be deformity of the distal right humerus. Will order x-rays of the humerus and elbow. 2019: X-ray shows old fractures that are healed of the distal right humerus. Patient messing he did break his arm many many years ago. Full range of motion on exam with no tenderness on exam of the right arm. 2226: Vital signs stable. Labs are unremarkable with exception of a low magnesium and the patient being COVID-positive. Family states that the patient was too weak to go home. Patient be admitted for magnesium repletion IV fluids. Discussed case with [facility] hospitalist Dr. Barnett who will evaluate the patient for admission. Impression & Plan Hypomagnesemia, COVID-19 Discharge Plan Visit Data Chief Complaint: Weakness Stated Complaint: WEAKNESS ED Provider: Gregory Canas Discharge Problem: Hypomagnesemia, COVID-19 Patient Disposition: Being Evaluated by Hospitalist Forms Stand Alone Forms: My [facility] Prescriptions Prescriptions: No Action nitroglycerin 0.4 mg tablet, sublingual 0.4 mg sublingual DIRECTED PRN (Reason: Chest Pain) Combivent Respimat 20-100 mcg/actuation mist 1 puff INHALATION QID PRN (Reason: Shortness Of Breath Or Wheezing) albuterol sulfate 0.63 mg/3 mL Solution For Nebulization 0.63 mg INHALATION QID PRN (Reason: Shortness Of Breath) cyanocobalamin (vitamin B-12) 1,000 mcg/mL Solution 1,000 mcg IM Q4WK Rx Instructions: pt states is way overdue aspirin 325 mg Tablet 325 mg PO DAILY lidocaine 4 % Adhesive Patch,Medicated 1 patch TOPICAL DAILY PRN (Reason: Pain) acetaminophen [Tylenol Arthritis Pain] 650 mg Tablet Extended Release 1,300 mg PO Q12H PRN (Reason: Pain) diclofenac sodium [Voltaren] 1 % Gel 4 g TOPICAL HS PRN (Reason: .affected area) Rx Instructions: apply to single knee, ankle, foot; for foot includes sole/toes/top of foot [facility]errals [facility]Primary [facility] Provider[facility] -
[2023-10-23 22:28] LABS: Appearance Urine Clear (Clear); Bacteria Urine Automated None Seen (None Seen); Bilirubin Urine Negative (Negative); Blood Urine Negative (Negative); Color Urine Yellow; Epithelial Cell Urine Auto 0-2 /hpf (0-2); Glucose Urine UA Negative (Negative); Hyaline Casts Urine Present /lpf (None Presnt); Ketones Urine Negative (Negative); Leukocyte Esterase Urine Negative (Negative); Nitrite Urine Negative (Negative); Protein Urine 1+ (Negative); RBC Urine Automated 0-2 /hpf (0-2); Urobilinogen Urine Negative (Negative); WBC Urine Automated 0-5 /hpf (0-5); pH Urine 5.5 (4.5-7.5)
--- NOTE | 2023-10-23 23:31 | History & Physical Report ---
Date of Service October 23, 2023 Assessment & Plan (1) Hypoxemia: Plan: Transient hypoxemia in the setting of COVID-19 illness History COPD Possible pulmonary embolism given abnormal dimer. Patient refused CT chest recommendation stating he does not like going into machines. Hypertension, elevated secondary to illness, anxiety Patient currently not on maintenance medications. Patient previously on Coreg which was discontinued because of bradycardia on review of outpatient cardiology records. hx CAD status post stent mild TR IBD, chronic diarrhea symptoms hx GERD/PUD, not on maintenance medications chronic anemia, hemoglobin at baseline anxiety/mood disorder, some anxiety during exam Admit to medical telemetry IV heparin for presumptive PE until blood clot ruled out LE venous Dopplers for blood clot workup VQ scan if LE venous Dopplers negative Supportive management for COVID-19 illness for now. Initiate low-dose beta-judy if with persistent BP elevation given PVCs on EKG PT OT eval DVT prophylaxis. Heparin Full code Patient daughter requesting updates providers. Franki Sharee Gandhi, contact #[phone]. Text document was generated using Meditech voice recognition software. It may contain grammatical or spelling errors. Kindly contact undersigned for clarification of any documentation item in question. History of Present Illness Chief Complaint: Weakness, diarrhea Primary Care Provider: [facility] Dr. Miranda History obtained from patient, family, and records. 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 Last confinement February 2022 for COPD exacerbation secondary to influenza pneumonia. Few days history of generalized weakness associated with diarrhea symptoms. Poor appetite. Increasing weakness. Fever and chills noted. Patient denies chest pain, SOB, cough symptoms. No leg pain/swelling Not sure about sick contacts as he gets home visits from nurses as per family. Patient brought to ER for evaluation. Transient O2 sats of 80s on room air documented. 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 Allergies Allergy/AdvReac Type Severity Reaction Status Date / Time codeine Allergy Severe UNKNOWN--ON Verified 10/23/23 22:09 GMG MED LIST latex Allergy Mild RASH Verified 10/23/23 22:09 Iodinated Contrast Media AdvReac Intermediate HOT,SHAKEY Verified 10/23/23 22:09 Home Medications Medication Instructions Recorded Confirmed Type albuterol sulfate 0.63 mg/3 mL 0.63 mg inhalation QID PRN 08/13/20 10/23/23 History solution for nebulization Shortness Of Breath cyanocobalamin (vitamin B-12) 1,000 mcg IM Q4WK 08/13/20 10/23/23 History 1,000 mcg/mL injection solution ipratropium 20 mcg-albuterol 100 1 puff inhalation QID PRN 08/13/20 10/23/23 History mcg/actuation mist for inhalation Shortness Of Breath Or Wheezing (Combivent Respimat) nitroglycerin 0.4 mg sublingual 0.4 mg sublingual DIRECTED PRN 08/13/20 10/23/23 History tablet Chest Pain acetaminophen 650 mg 1,300 mg PO Q12H PRN Pain 10/23/23 10/23/23 History tablet,extended release (Tylenol Arthritis Pain) aspirin 325 mg tablet 325 mg PO DAILY 10/23/23 10/23/23 History diclofenac sodium 1 % topical gel 4 g topical HS PRN .affected area 10/23/23 10/23/23 History lidocaine 4 % topical patch 1 patch topical DAILY PRN Pain 10/23/23 10/23/23 History Past Med/Surg History Problem List (Updated 10/24/23 @ 08:06 by Noah Almanza MD) Hypoxemia COVID-19 (Acute) Hypomagnesemia (Acute) Elevated troponin History of COVID-19 (Acute) Influenza (Acute) Proctitis (Acute) Fecal impaction in rectum Crohn's disease Hereditary and idiopathic neuropathy CKD (chronic kidney disease) stage 3, GFR 30-59 ml/min GERD (gastroesophageal reflux disease) HTN (hypertension) HLD (hyperlipidemia) CAD (coronary artery disease) August, during which time he was cared for in [place] and underwent coronary intervention of the left anterior descending coronary artery with 2 areas stented, both the proximal and mid LAD with drug-eluting stents. He also had PTCA of the first diagonal branch at that time. A residual 70% mid right coronary artery stenosis and 30% circumflex stenosis was also present. 12/04/2012 - vfib arrest, defib x 3, along with CPRO, cardiac cath previous LAD stents patent, underwent BMS to culprit RCA stenosis COPD (chronic obstructive pulmonary disease) Abdominal pain, lower (Acute) Constipation (Acute) Anemia (Acute) Dehydration (Acute) Medical History Sepsis Acute exacerbation of chronic obstructive pulmonary disease History of ventricular fibrillation 12/04/2012 - vfib arrest, defib x 3, along with CPRO, cardiac cath previous LAD stents patent, underwent BMS to culprit RCA stenosis Nephrolithiasis Depression Pernicious anemia Glaucoma Duodenal ulcer Surgical History 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 History of resection of small bowel 2/2 to Crohn's, dx 1981, resection of terminal ileum for medically unresponsive obstruction 1985; 1991; 1993 History of extraction of renal calculus History of inguinal hernia repair History of cholecystectomy History of appendectomy History of coronary artery balloon dilation WILFREDO 09/2011 Family History Mother Alzheimer disease Brother Diabetes Hypertension Father Heart disease Other Cancer Social History Smoking Status: Former smoker Tobacco Type: Cigarettes Second Hand Exposure: No; Do You Dip or Chew Tobacco: No; Hx Alcohol Use: No Hx Substance Use: No Preferred Language: Martiniquais Communication Ability: Effective Inspector Watch Assembly Required: No Beliefs That Will Affect Care: None marital status: Current Living Situation: Spouse Feels Safe at Home: Yes Assistive Devices: Cane and Nebulizer Review of Systems Review of Systems: As per HPI, all other systems reviewed and negative Physical Exam Physical Exam: GENERAL: Comfortable, slightly hard of hearing, underweight, chronically ill, no respiratory distress SKIN: Pallor, warm HEENT: Sparse hair, pale palpebral conjunctivae, no ptosis, dry buccal mucosa NECK : Supple, no tenderness CHEST : Decreased breath sounds, no tenderness HEART : RRR, no obvious murmurs ABDOMEN: no distention, nontender EXTREMITIES : No LE swelling/tenderness, no other conspicuous deformities noted NEUROLOGIC : Coherent, no facial asymmetry, slightly hard of hearing, no other gross focality Results & Data Results & Data Vital Signs (Past 12 Hours) Vital Signs Temp Pulse Pulse Resp BP BP Pulse Ox 10/23/23 22:03 90 20 93 10/23/23 22:00 134/59 L 10/23/23 22:00 134/59 L 10/23/23 21:51 105 H 15 94 10/23/23 21:36 92 H 18 93 10/23/23 21:01 138/54 L 10/23/23 21:01 138/54 L 10/23/23 21:01 138/54 L 10/23/23 21:00 92 H 28 H 134/59 L 85 L 10/23/23 20:36 88 20 93 10/23/23 20:22 38.1 C H 98 H 20 160/79 H 96 10/23/23 20:18 100 H 19 85 L 10/23/23 20:00 160/79 H 10/23/23 20:00 160/79 H 10/23/23 19:43 107 H 10/23/23 19:43 107 H 20 94 10/23/23 19:43 37.8 C H 107 H 20 147/75 H 94 10/23/23 19:42 102 H 17 92 O2 Del Method 10/23/23 22:03 10/23/23 22:00 10/23/23 22:00 10/23/23 21:51 10/23/23 21:36 10/23/23 21:01 10/23/23 21:01 10/23/23 21:01 10/23/23 21:00 10/23/23 20:36 10/23/23 20:22 Room Air 10/23/23 20:18 10/23/23 20:00 10/23/23 20:00 10/23/23 19:43 10/23/23 19:43 Room Air 10/23/23 19:43 Room Air 10/23/23 19:42 Laboratory Results Laboratory Results WBC 5.58 K/ul (4.8-10.8) 10/23/23 19:45 RBC 4.32 M/uL (4.70-6.10) L 10/23/23 19:45 Hgb 13.9 g/dl (14.0-18.0) L 10/23/23 19:45 Hct 40.8 % (42.0-52.0) L 10/23/23 19:45 MCV 94.4 fL (80.0-100.0) 10/23/23 19:45 MCH 32.2 pg (25.0-34.0) 10/23/23 19:45 MCHC 34.1 g/dL (32.0-36.0) 10/23/23 19:45 RDW Std Deviation 43.3 fL (36.4-46.3) 10/23/23 19:45 RDW Coeff of Dari 12.5 % (11.5-14.5) 10/23/23 19:45 Plt Count 213 K/uL (130-400) 10/23/23 19:45 MPV 9.8 fL (9.4-12.4) 10/23/23 19:45 Immature Gran % (Auto) 1.1 % 10/23/23 19:45 Neut % (Auto) 61.6 % 10/23/23 19:45 Lymph % (Auto) 21.7 % 10/23/23 19:45 Sutter % (Auto) 13.3 % 10/23/23 19:45 Eos % (Auto) 1.6 % 10/23/23 19:45 Baso % (Auto) 0.7 % 10/23/23 19:45 Neut # (Auto) 3.44 K/uL (1.40-6.50) 10/23/23 19:45 Lymph # (Auto) 1.21 K/uL (1.20-3.40) 10/23/23 19:45 Sutter # (Auto) 0.74 K/uL (0.11-0.59) H 10/23/23 19:45 Eos # (Auto) 0.09 K/uL (0.00-0.50) 10/23/23 19:45 Baso # (Auto) 0.04 K/uL (0.00-0.20) 10/23/23 19:45 Immature Gran # (Auto) 0.06 K/uL (0.01-0.20) 10/23/23 19:45 PT 11.7 Seconds (9.0-12.0) 10/23/23 19:45 INR 1.1 (0.9-1.1) 10/23/23 19:45 APTT 29 Seconds (21-31) 10/23/23 19:45 PTT Ratio 1.1 10/23/23 19:45 VBG pH 7.38 (7.36-7.41) 10/23/23 20:00 VBG pCO2 49 mmHg (38-50) 10/23/23 20:00 VBG pO2 < 20 mmHg 10/23/23 20:00 VBG HCO3 29 mmol/L 10/23/23 20:00 VBG O2 Saturation < 60.0 % 10/23/23 20:00 VBG Base Excess 3.0 mEq/L 10/23/23 20:00 Sodium 137 mmol/L (136-145) 10/23/23 19:45 Potassium 3.9 mmol/L (3.5-5.1) 10/23/23 19:45 Chloride 100 mmol/L (98-107) 10/23/23 19:45 Carbon Dioxide 27 mmol/L (21-32) 10/23/23 19:45 Anion Gap 10 (3-11) 10/23/23 19:45 BUN 22 mg/dl (6-23) 10/23/23 19:45 Creatinine 1.37 mg/dl (0.6-1.4) 10/23/23 19:45 Est Cr Clr Drug Dosing 32.7 ml/min 10/23/23 19:45 Est GFR ( Amer) 55.7 ml/min 10/23/23 19:45 Est GFR (Non-Af Amer) 48.0 ml/min 10/23/23 19:45 BUN/Creatinine Ratio 16.1 (10-20) 10/23/23 19:45 Glucose 102 mg/dl (70-99(Fasting)) H 10/23/23 19:45 Lactate 1.3 mmol/L (0.4-2.0) 10/23/23 20:00 Calcium 9.3 mg/dl (8.6-10.3) 10/23/23 19:45 Magnesium 1.2 mg/dl (1.7-2.4) L 10/23/23 19:45 Total Bilirubin 0.5 mg/dl (0.2-1.0) 10/23/23 19:45 Direct Bilirubin 0.1 mg/dl (0-0.2) 10/23/23 19:45 AST 22 U/L (13-39) 10/23/23 19:45 ALT 8 U/L (7-52) 10/23/23 19:45 Alkaline Phosphatase 53 U/L (34-104) 10/23/23 19:45 Troponin I High Sens 19.8 pg/ml (0-20) 10/23/23 19:45 Total Protein 7.0 gm/dl (6.0-8.3) 10/23/23 19:45 Albumin 4.1 gm/dl (3.4-5.0) 10/23/23 19:45 Procalcitonin 0.37 ng/ml (0-0.5) 10/23/23 19:45 Urine Color Yellow 10/23/23 21:07 Urine Appearance Clear (Clear) 10/23/23 21:07 Urine pH 5.5 (4.5-7.5) 10/23/23 21:07 Ur Specific [place] 1.020 (1.000-1.030) 10/23/23 21:07 Urine Protein 1+ (Negative) H 10/23/23 21:07 Urine Glucose (UA) Negative (Negative) 10/23/23 21:07 Urine Ketones Negative (Negative) 10/23/23 21:07 Urine Blood Negative (Negative) 10/23/23 21:07 Urine Nitrite Negative (Negative) 10/23/23 21:07 Urine Bilirubin Negative (Negative) 10/23/23 21:07 Urine Urobilinogen Negative (Negative) 10/23/23 21:07 Ur Leukocyte Esterase Negative (Negative) 10/23/23 21:07 Urine WBC (Auto) 0-5 /hpf (0-5) 10/23/23 21:07 Urine RBC (Auto) 0-2 /hpf (0-2) 10/23/23 21:07 U Hyaline Cast (Auto) 6-10 /lpf (0-2) H 10/23/23 21:07 U Epithel Cells (Auto) 0-2 /hpf (0-2) 10/23/23 21:07 Urine Bacteria (Auto) None Seen (None Seen) 10/23/23 21:07 Hyaline Casts Present /lpf (None Presnt) A 10/23/23 21:07 SARS-CoV-2 (PCR) POSITIVE (Negative) 10/23/23 19:45 Influenza Type A (PCR) Negative (Neg) 10/23/23 19:45 Influenza Type B (PCR) Negative (Neg) 10/23/23 19:45 RSV (RT-PCR) Negative (Neg) 10/23/23 19:45 Diagnostic Findings Chest x-ray as per my interpretation showed hyperinflation EKG as per my interpretation : Rate 105, sinus tachycardia, RAD, no ischemia, PVCs
--- OUTSIDE RECORDS SUMMARY | 2023-10-23 23:42 | External Medical Summary | Summary of Care ---
Author Name Unknown Organization [facility] Address [address] [place] [address] Phone [phone] Care Team Providers Care Machine Striper Name Role Phone Michell Miranda MD Primary Care Provide r Encounter Details Date Type Department Care Team (Late st Contact Info) Description 06/22/2023 Orders Only Family Medicine [address] [phone] Michell Miranda MD [address] [place] [address] AILYN Barreto [phone] Allergies Active Allergy Reactions Criticality Noted Date Comments Codeine 06/17/2016 Ivp Dye Low 10/20/2000 Tramadol High 05/27/2019 documented as of this encounter (statuses as of 06/22/2023) Medications Medication Sig Dispensed Refills Start Date End Date Status ALBUTEROL SULFATE (5 MG/ML) 0.5% IN NEBU Inhale via nebulizer every 6 hours as needed for Wheezing or Shortness of Breath. 0 10/03/2011 Active Diclofenac Sodium (VOLTAREN) 1 % gel Place 4 g topically on the skin at bedtime as needed for Pain. 1 Tube 3 06/17/2016 Active Nitroglycerin 0.4 MG Sublingual Tablet Sublingual (Nitrostat) Place 1 Tab under the tongue every 5 minutes as needed for Pain, Chest. May repeat 3 times. If chest pain continues, call 911. 25 Tab 5 05/29/2020 Active Aspirin 325 MG Oral Capsule Take 1 Capsule by mouth in the morning. 0 Active Carvedilol 3.125 MG Oral Tablet (Coreg) Take 1 Tablet by mouth daily. 0 12/24/2021 Active HYDROcodone-Acetam inophen 2.5-325 MG Oral Tablet Take 1 Tablet by mouth every 8 hours as needed for Pain. 0 Active Lisinopril 10 MG Oral Tablet (Prinivil)Indicati ons:HTN, goal below 140/90 TAKE ONE TABLET BY MOUTH EVERY DAY 90 Tablet 0 05/08/2022 Active Ipratropium-[place] rol 20-100 MCG/ACT Inhalation Aerosol Solution (Combivent Respimat)Indicatio ns:COPD, moderate (HCC) INHALE ONE PUFF BY MOUTH FOUR TIMES DAILY 12 g 0 08/20/2022 Active Additional Information Patient taking differently: QID PRN, (No instructions reported), Informant: Patient, Reported on 09/23/2022 Acetaminophen 500 MG Oral Tablet Take 2 Tablets by mouth 3 times a day as needed. 0 Active Lidocaine 4 % External Patch Place 1 Patch topically on the skin daily as needed for Pain. 0 Active Sertraline HCl 25 MG Oral Tablet (Zoloft)Indication s:MARICARMEN (generalized anxiety disorder) Take 1 Tablet by mouth every night at bedtime. 90 Tablet 1 05/25/2023 Active Hospital, Clinic, or Other Facility Administered Medication Ordered Dose Route Frequency Start Date End Date Status vitamin b-12 (Cyanocobalamin) inj 1,000 mcgIndications:B12 deficiency 1000 mcg IM [id number] 05/25/2023 04/25/2024 Active documented as of this encounter (statuses as of 06/22/2023) Active Problems Problem Noted Date Diagnosed Date Moderate episode of recurrent major depressive d isorder 05/25/2023 MARICARMEN (generalized anxiety disorder) 05/25/2023 Medical home patient encounter 04/08/2022 Crohn's disease of small intestine without compl ication 07/29/2021 Chronic kidney disease, stage 3a 08/07/2020 Overview: Per CKD protocol Hypertensive kidney disease with stage 3a chronic kidney disease 02/06/2020 Overview: Per CKD protocol Avascular necrosis of femoral head, left 020 Hereditary and idiopathic peripheral neuropathy 08/26/2018 Cervicalgia 08/26/2018 Paresthesia of both lower extremities 08/26/2018 Hyperglycemia 08/26/2018 Anemia 12/16/2012 Major depressive disorder with current active ep isode 12/08/2011 Dyslipidemia, goal LDL below 70 11/03/2011 Overview: ICD-10 update of inactive term CAD (coronary artery disease), [id number] coronary a rtery 10/08/2011 COPD, moderate 01/02/2011 Calculus of kidney Esophageal reflux GENERAL OSTEOARTHROSIS Pernicious anemia Regional enteritis Overview: Crohn's ilietis dx 1982 Resection of terminal ilieum for medically unresponsive obstruction 1985; 1991; 1993 Chronic Pentasa therapy with intermittent prednisone 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 Hypertensive kidney disease with chronic kidney disease stage III 08/19/2018 02/09/2020 Overview: Per CKD protocol Kidney disease, chronic, sta ge III (GFR 30-59 ml/min) 07/07/2017 09/08/2018 Overview: Per CKD protocol #1 FERRIS (dyspnea on exertion) 08/30/2013 Claudication 08/30/2013 05/25/2014 Chest wall pain 12/22/2012 05/25/2014 Aseptic necrosis femur 08/29/201008/29 Duodenal ulcer, unspecified as acute or chronic, without hemorrhage, perforation, or obstruction 08/09/2021 COPD, severity to be determined 01/02/2011 ASEPTIC NECROSIS FEMUR 05/20 documented as of this encounter (statuses as of 06/22/2023) Immunizations No known immunizationsdocumented as of this encounter Social History Tobacco Use Types Packs/Day Years Used Date Smoking Tobacco: Former Cigarettes 40 0 09/28/1971 - 09/28/2011 Smokeless Tobacco: Never Alcohol Use Standard Drinks/Week Comments No 0 (1 standard drink = 0.6 oz pur e alcohol) PHQ-2 Answer Date Recorded PHQ-2 Score 0 01/31/2018 Hunger Vital Sign Answer Date Recorded Within the past 12 months, y ou worried that your food would run out before you got the money to buy more. Never true 03/26/20 22 Within the past 12 months, t he food you bought just didn't last and you didn't have money to get more. Never true 03/26/2022 Sex and Gender Information Value Date Recorded Sex Assigned at Not on file Gender Identity Not on file Sexual Orientation Not on file Job Start Date Occupation Industry Not on file Not on file Not on file documented as of this encounter Plan of Treatment Upcoming Encounters Date Type Department Care Team (Late st Contact Info) Description 08/03/2023 4:40 PM EDT Office Visit Family [address] [place] [phone] Sunni Love CRNP [address] [place] [address] AILYN Barreto [phone] 04/08/2024 4:00 PM EST Office Visit Family [address] [place] [phone] Michell Miranda MD [address] [place] [address] AILYN Barreto [phone] Health Maintenance Due Date Last Done Comments Pneumococcal Vaccine: 65+ Years (1 of 2 - PCV) 1948 Albumin/Creatinine Ratio 1960 Alpha-1 Antitrypsin 1960 Zoster Vaccines (1 of 2) 1992 Depression Screening 01/18/2019 01/18/2018 GFR 02/21/2022 05/08/2023, 07/29, 08/09/2021, Additional history exists CKD PHOS USE SMARTSET 42699 08/09/202207/28, 08/21/2020, 08/26/2018 CKD HGB USE SMARTSET 22089 08/21/202205/08, 08/21/2021, 08/09/2021, Additional history exists COVID-19 Vaccine (1 - 2022-24 season) 2022 Influenza Vaccine (FLU shot) (#1) 2022 O2 ASSESSMENT COMPLETED IN PAST YEAR FOR COPD 05/25/2024 05/25/2023 DTaP,Tdap,and Td Vaccines (2 - Td or Tdap) 02/06/2030 02/07/2020 (Not indicated) GARDASIL-HPV IMMUNIZATION SERIES Aged Out No longer eligible based on patient's age to complete this topic Hepatitis B Aged Out No longer eligi ble based on patient's age to complete this topic MENINGOCOCCAL (MENACTRA/MENVEO) Aged Out No longer eligible based on patient's age to complete this topic documented as of this encounter Medical Devices Not on filedocumented as of this encounter Procedures Procedure Name Priority Date/Time Associated Diagnosis Comments CHEMISTRY-OUTSIDE Routine 05/08/2023 documented in this encounter Results * (ABNORMAL) CHEMISTRY-OUTSIDE (05/08/2023) Not all results display below - see scan for full detail OUTSIDE LAB (SEE SCANNED REPORT) CREATININE-OUTSID E LAB 1.0 0.6 - 1.5 OUTSIDE LAB (SEE SCANNED REPORT) EGFR-OUTSIDE LAB 76.2 OUT SIDE LAB (SEE SCANNED REPORT) POTASSIUM-OUTSIDE LAB 3.8 3.6 - 5.1 OUTSIDE LAB (SEE SCANNED REPORT) GLUCOSE-OUTSIDE LAB 97 70 - 99 OUTSIDE LAB (SEE SCANNED REPORT) HOURS FASTING OUTSID E LAB (SEE SCANNED REPORT) TRIGLYCERIDES-OUT SIDE LAB OUTSIDE LAB (SEE SCANNED REPORT) CHOLESTEROL-OUTSI DE LAB 170 200 OUTSIDE LAB (SEE SCANNED REPORT) HDL-OUTSIDE LAB 72.5(A) 40 - 60 OUTS [facility] (SEE SCANNED REPORT) CHOL/HDL RATIO-OUTSIDE LAB OUTSIDE [facility] (SEE SCANNED REPORT) LDL (CALCULATED)-OUTS [facility] 77 5 - 100 OUTSIDE LAB (SEE SCANNED REPORT) LDL (DIRECT MEASURE)-OUTSIDE LAB OUTSIDE LAB (SEE SCANNED REPORT) HEMOGLOBIN, S2O-[facility] 6.0 4.3 - 6.2 OUTSIDE LAB (SEE SCANNED REPORT) PHOSPHORUS-OUTSID E LAB OUTSIDE LAB (SEE SCANNED REPORT) PTH-OUTSIDE LAB OUTS [facility] (SEE SCANNED REPORT) MICROALBUMIN RATIO-OUTSIDE LAB OUTSIDE [facility] (SEE SCANNED REPORT) PROTEIN, UA-OUTSIDE LAB OUTSIDE LAB (SEE SCANNED REPORT) HGB 12.6 12.4 - 17.3 OUTSIDE LAB (SEE SCANNED REPORT) 05/08/2023 Norbert Posada MD LABORATO RY OUTSIDE LAB (SEE SCANNED REPORT) documented in this encounter Advance Directives Healthcare Agents on File Name Relationship Healthcare Agent Relationshi p Communication Sara Clayton [facility] Health Care Repr esentative (appointed verbally by patient or by statute hierarchy) Susan Gandhi Adult Child Health Care Repr esentative (appointed verbally by patient or by statute hierarchy) Jacob Clayton Adult Child Health Care Repr esentative (appointed verbally by patient or by statute hierarchy) Care Teams Machine Striper Relationship Specialty Start Date End Date Michell Miranda MD PCP - General Family Medicine 09/07/13 documented as of this encounter
--- OUTSIDE RECORDS SUMMARY | 2023-10-23 23:42 | External Medical Summary | Summary of Care ---
Author Name Unknown Organization [facility] Address [address] [place] [address] Phone [phone] Care Team Providers Care Ladies' Locker Room Attendant Name Role Phone Michell Miranda MD Primary Care Provide r Reason for Visit * Reason Onset Date Comments Forms Request 04/21/2023 FMCHINEDU-AMY DASH Encounter Details Date Type Department Care Team ([facility] st Contact Info) Description 04/21/2023 Telephone Family Medicine [address] [address] Michell Miranda MD [address] [place] [address] Forms Request (SCOUT-AMY MCLEOD ) Allergies Active Allergy Reactions Criticality Noted Date Comments Codeine 06/17/2016 Ivp Dye Low 10/20/2000 Tramadol High 05/27/2019 documented as of this encounter (statuses as of 05/04/2023) Medications Medication Sig Dispensed Refills Start Date [...] call 911. 25 Tab 5 05/29/2020 Active Cyanocobalamin 1000 MCG/ML Injection Solution (Cyanocobalamin) Every 4 weeks 1 mL 11 12/24/2021 Active Aspirin 325 MG Oral Capsule Take [...] daily as needed for Pain. 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 Under GANDHI * Telephone Encounter - Michell Miranda MD - 05/01/2023 12:05 PM EST Filled out form * Telephone Encounter - Jennifer Ross OSA - 04/29/2023 4:25 PM EST Pt Daughter Sharee came in to the clinic today looking to apple picker FMLA was unsure why the nurses had called her yesterday. Sharee states she would need approximately 2 days per month. Sharee is doing FMLA to assist pt when he is sick, states when he is having an episode she would needabout 1 day to tend to him. Sharee is okay with faxing. * Telephone Encounter - Delia Heaton OSA - 04/28/2023 3:13 PM EST Reason for patient's call: Daughter return call Unable to reach nurse line. Please return call. Will be home after 4pm today. * Telephone Encounter - Liz Arias LPN - 04/28/2023 3:05 PM EST Attempted to call patient daughter, no answer, left message to return call. Please transfer patient when they return call to [facility] Triage # [phone] Thank you! * Telephone Encounter - Liz Arias LPN - 04/24/2023 4:06 PM EST Need to call daughter & get more info on FMLA forms. How much time is she needing off? What is she asking the time off for? Is this an extended period of time all at once, or is it just for days off to take to appts or helpat home? How many days per week/ times per month? The form is very specific and needs number of days & frequency per month. * Telephone Encounter - Phoenix Griffin OSA - 04/21/2023 4:33 PM EST Daughter Sharee ( 11/21/67) dropped off form for Dr. Miranda to fill out. Please call daughter Sharee at [phone] when form is done and she will pick it up here at clinic. I placed form in Dr. Luna mailbox in med room for completion. documented in this encounter Plan of Treatment Upcoming Encounters Date Type Department Care Team (Late st Contact Info) Description 05/25/2023 4:40 PM EST Office Visit Family Medicine [address] [place] [address] Michell Miranda MD [address] [place] [address] [place] [phone] Health Maintenance Due Date Last Done Comments COVID-19 Vaccine (#1) 1940 Pneumococcal Vaccine: 65+ Years (1 - PCV) 1946 Albumin/Creatinine Ratio 1960 Alpha-1 Antitrypsin 1960 Zoster Vaccines (1 of 2) 1992 Depression Screening 01/18/2019 01/18/2018 GFR 02/21/2022 08/21/2021, 07/28, 08/21/2020, Additional history exists CKD PHOS USE SMARTSET 66029 08/09/202207/28, 08/21/2020, 08/26/2018 CKD HGB USE SMARTSET 42620 08/21/202208/21, 08/09/2021, 08/09/2021, Additional history exists Influenza Vaccine (FLU shot) (#1) 2022 O2 ASSESSMENT COMPLETED IN PAST YEAR FOR COPD 10/14/2023 10/13/2022 DTaP,Tdap,and Td Vaccines (2 - Td or [...] Not on filedocumented as of this encounter Advance Directives Healthcare Agents on File Name Relationship Healthcare Agent Relationshi p Communication Sara Clayton [facility] Health Care Repr esentative (appointed verbally by patient or by statute hierarchy) Susan Gandhi Adult Child Health Care Repr esentative (appointed verbally by patient or by statute hierarchy) Jacob Clayton Adult Child Health Care Repr esentative (appointed verbally by patient or by statute hierarchy) Care Teams Ladies' Locker Room Attendant Relationship Specialty Start Date End Date Michell Miranda MD PCP - General Family Medicine 09/07/13 documented as of this encounter
--- OUTSIDE RECORDS SUMMARY | 2023-10-23 23:42 | External Medical Summary | Summary of Care ---
Author Name Unknown Organization [facility] Address [address] [place] [address] Phone [phone] Care Team Providers Care Sort Worker Name Role Phone Michell Miranda MD Primary Care Provide r Reason for Visit * Reason Onset Date Comments Health Maintenance 06/16/2023 Encounter Details Date Type Department Care Team (Late st Contact Info) Description 06/16/2023 Telephone Family Medicine [address] [phone] Michell Miranda MD [address] [place] [address] [place] [address] Health Maintenance Allergies Active Allergy Reactions Criticality Noted Date Comments Codeine 06/17/2016 Ivp Dye Low 10/20/2000 Tramadol High 05/27/2019 documented as of this encounter (statuses as of 06/16/2023) Medications Medication Sig Dispensed Refills Start Date [...] inj 1,000 mcgIndications:B12 deficiency 1000 mcg IM [id number] 05/25/2023 04/25/2024 Active documented as of this encounter (statuses as of 06/16/2023) Active Problems Problem Noted Date Diagnosed Date [...] of inactive term CAD (coronary artery disease), [place] coronary a rtery 10/08/2011 COPD, moderate 01/02/2011 Calculus of kidney Esophageal reflux GENERAL OSTEOARTHROSIS Pernicious anemia Regional enteritis Overview: Crohn's ilietis dx 1982 Resection of terminal ilieum for medically unresponsive obstruction 1985; 1991; 1993 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 Never true 03/26/20 Within the past 12 months, t he [...] encounter Miscellaneous Notes * Telephone Encounter - Oneida Scott LPN - 06/16/2023 3:17 PM EDT Care Gaps Comprehensive Care Outreach Last Office/Telemedicine Visit: 05/25/2023 (in office), Visit date not found (telemedicine) Next Office Visit: 08/03/2023 Hemoglobin AIC Results: Lab Results Component Value Date/Time HEMOGLOBIN A1C - [facility] 5.6 08/26/2018 02:52 PM HEMOGLOBIN A1C - [facility] 5.4 01/15/2017 01:26 PM BP Readings from Last 1 Encounters: 05/25/23 162/80 Reviewed Health Maintenance below: Health Maintenance Topic Date Due Pneumococcal Vaccine: 65+ Years (1 of 2 - PCV) Never done Albumin/Creatinine Ratio Never done Alpha-1 Antitrypsin Never done Zoster Vaccines (1 of 2) Never done Depression Screening 01/18/2019 GFR 02/21/2022 CKD PHOS USE SMARTSET 58397 08/09/2022 CKD HGB USE SMARTSET 73896 08/21/2022 Labs request from [place] Care Gap Outreach Action Taken: Outside records requested documented in this encounter Plan of Treatment Upcoming Encounters Date Type Department Care Team (Late st Contact Info) Description 08/03/2023 4:40 PM EDT Office Visit [address] [place] [phone] Sunni Love CRNP [address] [place] [address] [place] [address] 04/08/2024 4:00 PM EST Office Visit [address] [place] [phone] Michell Miranda MD [address] [place] [address] [place] [phone] Health Maintenance Due Date Last Done Comments Pneumococcal Vaccine: 65+ Years (1 of 2 - PCV) 1948 Albumin/Creatinine Ratio 1960 Alpha-1 Antitrypsin 1960 Zoster Vaccines (1 of 2) 1992 Depression Screening 01/18/2019 01/18/2018 GFR 02/21/2022 08/21/2021, 07/28, 08/21/2020, Additional history exists CKD PHOS USE SMARTSET 52288 08/09/202207/28, 08/21/2020, 08/26/2018 CKD HGB USE SMARTSET 53018 08/21/202208/21, 08/09/2021, 08/09/2021, Additional history exists COVID-19 Vaccine ( - 2022- season) 2022 Influenza Vaccine (FLU shot) (#1) [...] Healthcare Agent Relationshi p Communication Sara Clayton Spouse Health Care Repr esentative (appointed verbally by patient or by statute hierarchy) Susan Gandhi Adult Child Health Care Repr esentative (appointed verbally by patient or by statute hierarchy) Jacob Clayton Adult Child Health Care Repr esentative (appointed verbally by patient or by statute hierarchy) Care Teams Sort Worker Relationship Specialty Start Date End Date Michell Miranda MD PCP - General Family Medicine 09/07/13 documented as of this encounter
--- OUTSIDE RECORDS SUMMARY | 2023-10-23 23:42 | External Medical Summary | Summary of Care ---
Author Name Unknown Organization [facility] Address [address] [place] [address] Phone [phone] Care Team Providers Care Fence Gate Assembler Name Role Phone Michell Miranda MD Primary Care Provide r Reason for Visit * Reason Onset Date Comments Forms Request 04/21/2023 FMCHINEDU-AMY DASH Encounter Details Date Type Department Care Team ([facility] st Contact Info) Description 04/21/2023 Telephone Family Medicine [address] [phone] Michell Miranda MD [address] [place] [address] [place] [address] Forms Request (FMCHINEDU-AMY MCLEOD ) Allergies Active Allergy Reactions Criticality Noted Date Comments Codeine 06/17/2016 Ivp Dye Low 10/20/2000 Tramadol High 05/27/2019 documented as of this encounter (statuses as of 05/01/2023) Medications Medication Sig Dispensed Refills Start Date [...] as of this encounter (statuses as of 05/01/2023) Active Problems Problem Noted Date Diagnosed Date [...] of inactive term CAD (coronary artery disease), [place] coronary a rtery 10/08/2011 COPD, moderate 01/02/2011 Calculus of kidney Esophageal reflux GENERAL OSTEOARTHROSIS Pernicious anemia Regional enteritis Overview: Crohn's ilietis dx 1982 Resection of terminal ilieum for medically unresponsive obstruction 1985; 1991; 1993 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 * Telephone Encounter - Liz [...] fill out. Please call daughter Sharee at [phone] when form is done and she will pick it up here at clinic. I placed form in Dr. Luna mailbox in med room for completion. documented in this encounter Plan of Treatment Upcoming Encounters Date Type Department Care Team (Late st Contact Info) Description 05/25/2023 4:40 PM EST Office Visit Family Medicine [address] [place] [address] Michell Miranda MD [address] [place] [address] [place] [phone] Health Maintenance Due Date Last Done Comments COVID-19 Vaccine (#1) 1940 Pneumococcal Vaccine: 65+ Years (1 - PCV) 1948 Albumin/Creatinine Ratio 1960 Alpha-1 Antitrypsin 1960 Zoster Vaccines (1 of 2) 1992 Depression Screening 01/18/2019 01/18/2018 GFR 02/21/2022 08/21/2021, 07/28, 08/21/2020, Additional history exists CKD PHOS USE SMARTSET 37927 08/09/202207/28, 08/21/2020, 08/26/2018 CKD HGB USE SMARTSET 31762 08/21/202208/21, 08/09/2021, 08/09/2021, Additional history exists Influenza [...] Healthcare Agent Relationshi p Communication Sara Clayton [facility] Health Care Repr esentative (appointed verbally by patient or by statute hierarchy) Susan Gandhi Adult Child Health Care Repr esentative (appointed verbally by patient or by statute hierarchy) Jacob Clayton Adult Child [facility] Care Repr esentative (appointed verbally by patient or by statute hierarchy) Care Teams Fence Gate Assembler Relationship Specialty Start Date End Date Michell Miranda MD PCP - General Family Medicine 09/07/13 documented as of this encounter
--- OUTSIDE RECORDS SUMMARY | 2023-10-23 23:42 | External Medical Summary | Summary of Care ---
Author Name Unknown Organization [facility] Address [address] [place] [address] Phone [phone] Care Team Providers Care Special Delivery Worker Name Role Phone Michell Miranda MD Primary Care Provide r Reason for Visit * Reason Onset Date Comments Forms Request 04/21/2023 FMCHINEDU-AMY DASH Encounter Details Date Type Department Care Team ([facility] st Contact Info) Description 04/21/2023 Telephone Family Medicine [address] [phone] Michell Miranda MD [address] [place] [address] [place] [address] Forms Request (SCOUT-AMY MCLEOD ) Allergies Active Allergy Reactions Criticality Noted Date Comments Codeine 06/17/2016 Ivp Dye Low 10/20/2000 Tramadol High 05/27/2019 documented as of this encounter (statuses as of 04/30/2023) Medications Medication Sig Dispensed Refills Start Date [...] as of this encounter (statuses as of 04/30/2023) Active Problems Problem Noted Date Diagnosed Date [...] of inactive term CAD (coronary artery disease), [place] coronary a rtery 10/08/2011 COPD, moderate 01/02/2011 Calculus of kidney Esophageal reflux GENERAL OSTEOARTHROSIS Pernicious anemia Regional enteritis Overview: Crohn's ilietis dx 1982 Resection of terminal ilieum for medically unresponsive obstruction 1985; 1991; 1993 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 * Telephone Encounter - Liz [...] fill out. Please call daughter Sharee at [phone] when form is done and she will pick it up here at clinic. I placed form in Dr. Luna mailbox in med room for completion. documented in this encounter Plan of Treatment Upcoming Encounters Date Type Department Care Team (Late st Contact Info) Description 05/25/2023 4:40 PM EST Office Visit Family Medicine [address] [place] [address] Michell Miranda MD [address] [place] [address] [place] [address] Health Maintenance Due Date Last Done Comments COVID-19 Vaccine (#1) 1940 Pneumococcal Vaccine: 65+ Years (1 - PCV) 1948 Albumin/Creatinine Ratio 1960 Alpha-1 Antitrypsin 1960 Zoster Vaccines (1 of 2) 1992 Depression Screening 01/18/2019 01/18/2018 GFR 02/21/2022 08/21/2021, 07/28, 08/21/2020, Additional history exists CKD PHOS USE SMARTSET 83110 08/09/202207/28, 08/21/2020, 08/26/2018 CKD HGB USE SMARTSET 98113 08/21/202208/21, 08/09/2021, 08/09/2021, Additional history exists Influenza [...] Healthcare Agent Relationshi p Communication Sara Clayton [facility] Health Care Repr esentative (appointed verbally by patient or by statute hierarchy) Susan Gandhi Adult Child Health Care Repr esentative (appointed verbally by patient or by statute hierarchy) Jacob Clayton Adult Child [facility] Care Repr esentative (appointed verbally by patient or by statute hierarchy) Care Teams Special Delivery Worker Relationship Specialty Start Date End Date Michell Miranda MD PCP - General Family Medicine 09/07/13 documented as of this encounter
--- OUTSIDE RECORDS SUMMARY | 2023-10-23 23:42 | External Medical Summary | Summary of Care ---
Author Name Unknown Organization [facility] Address [address] [place] [address] Phone [phone] Care Team Providers Care Assistant Professor Of Economics Name Role Phone Michell Miranda MD Primary Care Provide r Reason for Visit * Reason Onset Date Comments Forms Request 04/21/2023 FMCHINEDU-AMY DASH Encounter Details Date Type Department Care Team ([facility] st Contact Info) Description 04/21/2023 Telephone Family Medicine [address] [phone] Michell Miranda MD [address] [place] [address] [place] [address] Forms Request (FMCHINEDU-AMY MCLEOD ) Allergies [...] of inactive term CAD (coronary artery disease), [place] coronary a rtery 10/08/2011 COPD, moderate 01/02/2011 Calculus of kidney Esophageal reflux GENERAL OSTEOARTHROSIS Pernicious anemia Regional enteritis Overview: Crohn's ilietis dx 1982 Resection of terminal ilieum for medically unresponsive obstruction 1985; 1991; 1993 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 * Telephone Encounter - Liz [...] fill out. Please call daughter Sharee at [phone] when form is done and she will pick it up here at clinic. I placed form in Dr. Luna mailbox in med room for completion. documented in this encounter Plan of Treatment Upcoming Encounters Date Type Department Care Team (Late st Contact Info) Description 05/25/2023 4:40 PM EST Office Visit Family Medicine [address] [place] [address] Mihcell Miranda MD [address] [place] [address] [place] [address] Health Maintenance Due Date Last Done Comments COVID-19 Vaccine (#1) 1940 Pneumococcal Vaccine: 65+ Years (1 - PCV) 1946 Albumin/Creatinine Ratio 1960 Alpha-1 Antitrypsin 1960 Zoster Vaccines (1 of 2) 1992 Depression Screening 01/18/2019 01/18/2018 GFR 02/21/2022 08/21/2021, 07/28, 08/21/2020, Additional history exists CKD PHOS USE SMARTSET 48506 08/09/202207/28, 08/21/2020, 08/26/2018 CKD HGB USE SMARTSET 28891 08/21/202208/21, 08/09/2021, 08/09/2021, Additional history exists Influenza [...] Relationship Healthcare Agent Relationshi p Communication [facility] Health Care Repr esentative (appointed verbally by patient or by statute hierarchy) Susan Gandhi Adult Child Health Care Repr esentative (appointed verbally by patient or by statute hierarchy) Jacob Clayton [facility] Child [facility] Care Repr esentative (appointed verbally by patient or by statute hierarchy) Care Teams Assistant Professor Of Economics Relationship Specialty Start Date End Date Michell Miranda MD PCP - General Family Medicine 09/07/13 documented as of this encounter
--- OUTSIDE RECORDS SUMMARY | 2023-10-23 23:42 | External Medical Summary | Summary of Care ---
Author Name Unknown Organization [facility] Address [address] [place] [address] Phone [phone] Care Team Providers Care Laundry Route Driver Name Role Phone Michell Miranda MD Primary Care Provide r Reason for Visit * Reason Comments Re-Check Encounter Details Date Type Department Care Team (Late st Contact Info) Description 05/25/2023 4:40 PM EST Office Visit Family Medicine [address] [phone] Michell Miranda MD [address] [place], [place] [id number] Hypertensive kidney disease with stage 3a chronic kidney disease*; Crohn's disease of small intestine without complication (HCC); Avascular necrosis of femoral head, left (HCC); COPD, moderate (HCC); Moderate episode of recurrent major depressive disorder (HCC); MARICARMEN (generalized anxiety disorder); B12 deficiency; Lesion of skin of nose Allergies Active Allergy Reactions Criticality Noted Date Comments Codeine 06/17/2016 Ivp Dye Low 10/20/2000 Tramadol High 05/27/2019 documented as of this encounter (statuses as of 05/25/2023) Medications Medication Sig Dispensed Refills Start Date [...] Tablet by mouth daily. 0 12/24/2021 Active HYDROcodone-Acet aminophen 2.5-325 MG Oral Tablet Take 1 Tablet by mouth every 8 hours as needed for Pain. 0 Active Lisinopril 10 MG Oral Tablet (Prinivil)Indica tions:HTN, goal below 140/90 TAKE ONE TABLET BY MOUTH EVERY DAY 90 Tablet 0 05/08/2022 Active Ipratropium-Albu terol 20-100 MCG/ACT Inhalation Aerosol Solution (Combivent Respimat)Indicat ions:COPD, moderate (HCC) INHALE ONE PUFF BY MOUTH [...] Active Sertraline HCl 25 MG Oral Tablet (Zoloft)Indicati ons:MARICARMEN (generalized anxiety disorder) Take 1 Tablet by mouth every night at bedtime. 90 Tablet 1 05/25/2023 Active Cyanocobalamin 1000 MCG/ML Injection Solution (Cyanocobalamin) Every 4 weeks 1 mL 11 12/24/2021 Discontinued Hospital, Clinic, or Other Facility Administered Medication Ordered Dose Route Frequency Start Date End Date Status vitamin b-12 (Cyanocobalamin) inj 1,000 mcgIndications:B12 deficiency 1000 mcg IM [id number] 05/25/2023 04/25/2024 Active documented as of this encounter (statuses as of 05/25/2023) Active Problems Problem Noted Date Diagnosed Date [...] of inactive term CAD (coronary artery disease), three affiliated coronary a rtery 10/08/2011 COPD, moderate 01/02/2011 [...] femural heads [facility] rep. 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 Hypertensive kidney disease with chronic kidney disease stage III 08/19/2018 02/09/2020 Overview: Per CKD protocol Kidney disease, chronic, sta ge III (GFR 30-59 ml/min) 07/07/2017 09/08/2018 Overview: Per CKD protocol #1 NORTH (dyspnea on exertion) 08/30/2013 Claudication 08/30/2013 05/25/2014 Chest wall pain 12/22/2012 05/25/2014 Aseptic necrosis femur 08/29/201008/29 Duodenal ulcer, unspecified as acute or chronic, without hemorrhage, perforation, or obstruction 08/09/2021 COPD, severity to be determined 01/02/2011 ASEPTIC NECROSIS FEMUR 05/20 documented as of this encounter (statuses as of 05/25/2023) Immunizations No known immunizationsdocumented as of this [...] on file documented as of this encounter Last Filed Vital Signs Vital Sign Reading Time Taken Comments Blood Pressure 162/80 05/25/2023 4:37 PM EST Pulse 74 05/25/2023 4:37 PM EST Temperature 36.7 C (98 F) 05/25/2023 4:37 PM EST Respiratory Rate - - Oxygen Saturation 95% 05/25/2023 4:37 PM EST Inhaled Oxygen Concentration - - Weight 46.3 kg (102 lb) 05/25/2023 4:37 PM EST Height 167.6 cm (5' 6") 05/25/2023 4:37 PM EST Body Mass Index 16.46 05/25/2023 4:37 PM EST documented in this encounter Progress Notes * Michell Miranda MD - 05/25/2023 4:45 PM EST Subjective: Gary Clayton is a 83 year old male. Chief Complaint Patient presents with Re-Check HPI: Brief Clinical History Mr. Clayton is an 83 year old man last seen in Family Medicine 7 months ago (10-13-22). He is due for eval of Crohn's disease of small intestine without complication (HCC) and Regional enteritis (HCC). Here with daughter and granddaughter. Nerves have been bad. Is very anxious all the time. Is not sleeping well. Lost suddenly not long ago. Daughter and family have been checking on him. Is not currently taking anything for anxiety. Not checking blood pressure at home. Was nervous to come here and was hard getting ready to come. Family will get a home cuff. Having a lot of hip pain. Not quite ready to pursue replacement. [facility] that were good. Results for orders placed or performed in visit on 08/21/21 COMPREHENSIVE METABOLIC PANEL Result Value Ref Range BUN 23 (H) 6 - 20 mg/dL Creatinine 1.2 0.6 - 1.2 mg/dL Estimated Glomerular Filtration Rate 60 >=60 mL/min Sodium 140 135 - 146 mmol/L Potassium 4.9 3.5 - 5.1 mmol/L Chloride 106 98 - 107 mmol/L CO2 24 22 - 32 mmol/L Anion Gap 10 7 - 15 mmol/L Glucose 85 70 - 120 mg/dL Albumin 4.3 3.8 - 5.0 g/dL AST 14 10 - 50 U/L Alkaline Phosphatase 65 35 - 130 U/L Bilirubin, Total 0.4 <=1.2 mg/dL Calcium 9.6 8.4 - 10.2 mg/dL Protein 6.3 6.0 - 8.3 g/dL ALT 7 (L) 10 - 50 U/L IRON SCREEN, INCLUDING TIBC Result Value Ref Range Iron 102 45 - 176 ug/dL Iron Binding Capacity 263 250 - 425 ug/dL Transferrin Saturation Percent 39 15 - 55 % FERRITIN Result Value Ref Range Ferritin 108 30 - 400 ng/mL VITAMIN B12 Result Value Ref Range Vitamin B12 601 232-1,245 pg/mL FOLIC ACID Result Value Ref Range Folic Acid 13.7 >4.5 ng/mL HGB Result Value Ref Range HGB 12.4 (L) 14.0 - 16.8 g/dL HCT Result Value Ref Range HCT 36.5 (L) 40.0 - 48.4 % PHM: Patient Active Problem List Diagnosis Code Calculus of kidney N20.0 Esophageal reflux K21.9 GENERAL OSTEOARTHROSIS M15.9 Pernicious anemia D51.0 Regional enteritis ([facility]) K50.90 HTN, goal below 140/90 I10 Glaucoma H40.9 COPD, moderate ([facility]) J44.9 CAD (coronary artery disease), three affiliated coronary artery I25.10 Dyslipidemia, goal LDL below 70 E78.5 Major depressive disorder with current active episode F32.[address]emia [address] elevation myocardial infarction (STEMI) I25.2 Hereditary and idiopathic peripheral neuropathy G60.9 Cervicalgia M54.2 Paresthesia of both lower extremities R20.2 Hyperglycemia R73.9 Avascular necrosis of femoral head, left ([facility]) M87.052 Hypertensive kidney disease with stage 3a chronic kidney disease I12.9, N18.31 Chronic kidney disease, stage 3a ([facility]) N18.31 Crohn's disease of small intestine without complication ([facility]) K50.00 Medical home patient encounter Z00.8 Moderate episode of recurrent major depressive disorder ([facility]) F33.1 Current Outpatient Medications Medication Sig Dispense Refill ALBUTEROL SULFATE (5 MG/ML) 0.5% IN NEBU Inhale via nebulizer every 6 hours as needed for Wheezing or Shortness of Breath. Diclofenac Sodium (VOLTAREN) 1 % gel Place 4 g topically on the skin at bedtime as needed for Pain.1 Tube 3 Nitroglycerin 0.4 MG Sublingual Tablet Sublingual (Nitrostat) Place 1 Tab under the tongue every 5 minutes as needed for Pain, Chest. May repeat 3 times. If chest pain continues, call 911. 25 Tab 5 Cyanocobalamin 1000 MCG/ML Injection Solution (Cyanocobalamin) Every 4 weeks 1 mL 11 Aspirin 325 MG Oral Capsule Take 1 Capsule by mouth in the morning. Carvedilol 3.125 MG Oral Tablet (Coreg) Take 1 Tablet by mouth daily. HYDROcodone-Acetaminophen 2.5-325 MG Oral Tablet Take 1 Tablet by mouth every 8 hours as needed forPain. Lisinopril 10 MG Oral Tablet (Prinivil) TAKE ONE TABLET BY MOUTH EVERY DAY 90 Tablet 0 Ipratropium-Albuterol 20-100 MCG/ACT Inhalation Aerosol Solution (Combivent Respimat) INHALE ONE PUFF BY MOUTH FOUR TIMES DAILY (Patient taking differently: 4 times a day as needed.) 12 g 0 Acetaminophen 500 MG Oral Tablet Take 2 Tablets by mouth 3 times a day as needed. Lidocaine 4 % External Patch Place 1 Patch topically on the skin daily as needed for Pain. No current facility-administered medications for this visit. Past Medical History: Diagnosis Date Aseptic necrosis femur Calculus of kidney Renal Calculus COPD, severity to be determined ([facility]) COPD Duodenal ulcer, unspecified as acute or chronic, without hemorrhage, perforation, or obstruction Esophageal reflux GERD Generalized osteoarthritis Osteoarthritis, General Glaucoma HTN, goal below 140/90 Intestinal obstruction ([facility]) Ischemic cardiomyopathy 08/2013 EF 45% Pernicious anemia Regional enteritis ([facility]) Crohn's Disease STEMI (ST elevation myocardial infarction) ([facility]) 12/04/2012 V fib arrest; CPR, compressions Past Surgical History: Procedure Laterality Date CORONARY ARTERY DILATION, BALLOON 09/2011 with drug eluting stent MISCELLANEOUS ORDER ([facility] ONLY) removed rib REMOVAL OF APPENDIX REMOVAL OF SMALL INTESTINE X3 Resection of terminal iliuem in 1985, 1991, 1993 for medically unresponsive obstruction. REMOVE GALLBLADDER REMOVE URETER STONE FROM LOWER 04/01 REPAIR RECURRENT INGUINAL HERNIA 03/10/1996 Inguinal Hernia Repair, Recurrent right TOTAL HIP REPLACEMENT & PROSTHESIS Right 2013 Dr. Rogel Social History Socioeconomic History Marital status: Spouse name: Not on file Number of children: Not on file Years of education: Not on file Highest education level: Not on file Occupational History Not on file Tobacco Use Smoking status: Former Current packs/day: 0.00 Types: Cigarettes Start date: 09/28/1971 Quit date: 09/28/2011 Years since quittin.6 Smokeless tobacco: Never Substance and Sexual Activity Alcohol use: No Drug use: No Sexual activity: Not on file Other Topics Concern Not on file Social History Narrative Not on file Social Determinants of Health Financial Resource Strain: Not on file Food Insecurity: No Food Insecurity (03/26/2022) Hunger Vital Sign Worried About Running Out of Food in the Last Year: Never true Ran Out of Food in the Last Year: Never true Transportation Needs: Not on file Physical Activity: Not on file Stress: Not on file Social Connections: Not on file Intimate Partner Violence: Not on file Housing Stability: Not on file Review of patient's allergies indicates: Allergen Reactions Tramadol Codeine Ivp Dye Objective: BP 162/80 | Pulse 74 | Temp 36.7 C (98 F) (Tympanic) | Ht 1.676 m (5' 6") | Wt 46.3 kg (102 lb)| SpO2 95% | BMI 16.46 kg/m | BSA 1.47 m Physical Exam: General: alert, no distress, and very thin appearing male seated in a wheelchair Head: Normocephalic, No masses, lesions, tenderness or abnormalities Eye Exam: PERRLA, extraocular movements intact, conjunctiva are pink and non- injected, sclera clear Ears: External ears normal, Canals clear, TM's Normal Nose: no mucosal erythema, no mucosal edema, no purulent discharge. +scabbed lesion of right side of nose near the tip with shallow ulceration and slight rolling of borders Oropharynx: no exudate, no erythema, lips, buccal mucosa, and tongue normal, and mucous membranes are moist Neck: supple, no adenopathy Heart: regular rate & rhythm, no murmur, and no gallops Lungs: chest symmetric with normal AP diameter, no chest deformities noted, no chest wall tenderness, lungs clear to auscultation Extremities: no clubbing, no cyanosis, trace edema bilateral lower extremities Neuro Exam: alert & oriented x 3 with fluent speech, no focal motor/sensory deficits Extensive ROS Constitutional (f/c/wt/vision/hearing): Negative Resp (cough/sob/north): Negative CV (cp/palp/fluttering/diaphoresis/north/pnd):see above hpi GI (n/v/d/hrtburn): Negative Endo (hair/cold or heat intol/ 3 p's): Negative Neuro (shaking/weak/fatigu/parasthesi/): Negative Skin (rash/easy bruis/xerosis): see above hpi Psy (si/hi/halluc/): see above hpi (nocturia/hesit/drib/sexual review): Negative Lymph (swollen glands/b sx's/: Negative ASSESSMENT: Hypertensive kidney disease with stage 3a chronic kidney disease (Primary)--BP elevated today. Willmonitor at home and could increase carvedilol or lisinopril if remain high. Was nervous to come to appointment today. Return in 3 months for recheck. Crohn's disease of small intestine without complication (HCC)--stable. Avascular necrosis of femoral head, left (HCC)--[facility] Not ready to have hip replaced yet. High risk for surgery due to CAD. COPD, moderate (HCC)--stable. No recent flares Moderate episode of recurrent major depressive disorder (HCC)--start sertraline 25 mg daily. Copingwith loss of spouse. MARICARMEN (generalized anxiety disorder)--as above - Sertraline HCl 25 MG Oral Tablet (Zoloft); Take 1 Tablet by mouth every night at bedtime. B12 deficiency - vitamin b-12 (Cyanocobalamin) inj 1,000 mcg - VITAMIN B12; Future; Expected date: 05/25/2023 Lesion of skin of nose--patient is not concerned. Daughter states she thinks it has not been there long and is from wiping his eyes/nose a lot and also has been picking at it. Recommended dermatologyreferral to r/o BCC but patient declines at this time. If still present at next appointment, would recommend referral. Follow Up: Return in about 3 months (around 08/23/2023) for Clinic Visit. | For: Clinic Visit PLAN: Continue present medication(s): Begin medication(s): sertraline 25 mg daily at bedtime. Can titrate up if needed. Injection(s) ordered: Vitamin B12 injection given today and ordered standing monthly. Schedule labs: B12, CBC w/diff, BMP, Lipid panel, microalbumin, and phosphorus at next visit. Patient education: discussed new medication and titration. Follow up: in 3 month(s). Michell Miranda MD documented in this encounter Nursing Notes * Liz Arias LPN - 05/25/2023 4:37 PM EST 6 month recheck Nerve pill for anxiety Needs new order for B 12 injection. documented in this encounter Plan of Treatment Upcoming Encounters Date Type Department Care Team (Late st Contact Info) Description 08/03/2023 4:40 PM EDT Office Visit [address] [place] [phone] Sunni Love CRNP [address] [place] [address] [place] [id number] 04/08/2024 4:00 PM EST Office Visit [address] [place] [phone] Michell Miranda MD [address] [place] [address] [place] [id number] Scheduled Orders Name Type Priority Associated Diagnoses Orde r Schedule VITAMIN B12 Lab Routine B12 deficiency Expected: 05/25/2023 (Approximate), Expires: 05/24/2024 Health Maintenance Due Date Last Done Comments Pneumococcal Vaccine: 65+ Years (1 of 2 - PCV) 1946 Albumin/Creatinine Ratio 1960 Alpha-1 Antitrypsin 1960 Zoster Vaccines (1 of 2) 1992 Depression Screening 01/18/2019 01/18/2018 GFR 02/21/2022 08/21/2021, 07/28, 08/21/2020, Additional history exists CKD PHOS USE SMARTSET 54892 08/09/202207/28, 08/21/2020, 08/26/2018 CKD HGB USE SMARTSET [id number] 08/21/202208/21, 08/09/2021, 08/09/2021, Additional history exists COVID-19 [...] Not on filedocumented as of this encounter Visit Diagnoses Diagnosis Hypertensive kidney disease with stage 3a chronic kidney disease- Primary Crohn's disease of small intestine without complication (HCC) Regional enteritis of small intestine Avascular necrosis of femoral head, left (HCC) COPD, moderate (HCC) Chronic airway obstruction, not elsewhere classified Moderate episode of recurrent major depressive disorder (HCC) MARICARMEN (generalized anxiety disorder) Generalized anxiety disorder B12 deficiency Other B-complex deficiencies Lesion of skin of nose documented in this encounter Administered Medications Active Administered Medications - up to 3 most recent administrations Medication Order MAR Action Action Date Dose Rate Site vitamin b-12 (Cyanocobalamin) inj 1,000 mcg 1,000 mcg, Intramuscular, [id number], First dose on Thu05/25/23 at 1730, Last dose on Thu03/28/24 at 1730, For 12 doses Given 05/25/2023 5:05 PM EST 1,000 mcg Deltoid Left Upper documented in this encounter Advance Directives Healthcare Agents on File Name Relationship Healthcare Agent Relationshi p Communication Sara [facility] Care Repr esentative (appointed verbally by patient or by statute hierarchy) Susan Gandhi [facility] Health Care Repr esentative (appointed verbally by patient or by statute hierarchy) Jacob Clayton [facility] Care Repr esentative (appointed verbally by patient or by statute hierarchy) Care Teams Laundry Route Driver Relationship Specialty Start Date End Date Michell Miranda MD PCP - General Family Medicine 09/07/13 documented as of this encounter
--- OUTSIDE RECORDS SUMMARY | 2023-10-23 23:42 | External Medical Summary | Summary of Care ---
Author Name Unknown Organization [facility] Address [address] [place] [address] Phone [phone] Care Team Providers Care Construction Lineman Name Role Phone Michell Miranda MD Primary Care Provide r Reason for Visit * Reason Onset Date Comments Advice 10/19/2023 Encounter Details Date Type Department Care Team (Late st Contact Info) Description 10/19/2023 Telephone Family Medicine [address] [phone] Michell Miranda MD [address] [place] [address] [place] [id number] Advice Allergies Active Allergy Reactions Criticality Noted Date Comments Codeine 06/17/2016 Ivp Dye Low 10/20/2000 Tramadol High 05/27/2019 documented as of this encounter (statuses as of 10/22/2023) Medications Medication Sig Dispensed Refills Start Date End Date Status ALBUTEROL SULFATE (5 MG/ML) 0.5% IN NEBU Inhale via nebulizer every 6 hours as needed for Wheezing or Shortness of Breath. 10/03/2011 Active Diclofenac Sodium (VOLTAREN) 1 % [...] 1 Capsule by mouth in the morning. Active Carvedilol 3.125 MG Oral Tablet (Coreg) Take 1 Tablet by mouth daily. 12/24/2021 Active HYDROcodone-Acetam inophen 2.5-325 MG Oral Tablet Take 1 Tablet by mouth every 8 hours as needed for Pain. Active Lisinopril 10 MG Oral Tablet (Prinivil)Indicati ons:HTN, goal below 140/90 TAKE ONE TABLET BY MOUTH EVERY DAY 90 Tablet 05/08/2022 Active Ipratropium-Albute rol 20-100 MCG/ACT Inhalation Aerosol Solution (Combivent Respimat)Indicatio ns:COPD, moderate (HCC) INHALE ONE PUFF BY MOUTH FOUR TIMES DAILY 12 g 08/20/2022 Active Additional Information Patient taking differently: QID PRN, (No instructions reported), Informant: Patient, Reported on 09/23/2022 Acetaminophen 500 MG Oral Tablet Take 2 Tablets by mouth 3 times a day as needed. Active Lidocaine 4 % External Patch Place 1 Patch topically on the skin daily as needed for Pain. Active Sertraline HCl 25 MG Oral Tablet (Zoloft)Indication s:MARICARMEN (generalized anxiety disorder) Take 1 Tablet by mouth every night at bedtime. 90 Tablet 1 05/25/2023 Active Hospital, Clinic, or Other Facility Administered Medication Ordered Dose Route Frequency Start Date End Date Status vitamin b-12 (Cyanocobalamin) inj 1,000 mcgIndications:B12 deficiency 1000 mcg IM [id number] 05/25/2023 04/25/2024 Active documented as of this encounter (statuses as of 10/22/2023) Active Problems Problem Noted Date Diagnosed Date [...] of inactive term CAD (coronary artery disease), [place] coronary a rtery 10/08/2011 COPD, moderate 01/02/2011 Calculus of kidney Esophageal reflux GENERAL OSTEOARTHROSIS Pernicious anemia Regional enteritis Overview: Crohn's ilietis dx 1982 Resection of terminal ilieum for medically unresponsive obstruction 1985; 1991; 1993 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 Never true 03/26/2022 Utilities Answer Date Recorded Do you have trouble paying y our heating, water, or electric bill? (Adult - for ages 18 years and over) Not on file 09/15/2023 Is your family able to pay t he heat, water, or electric bill? (Household - for ages 0-17 years) Not on file 09/15/2023 Does your family have access to good internet? (Household - for ages 0-17 years) Not on file 09/15/2023 Social Connections Answer Date Recorded How often do you feel lonely or isolated from those around you? (Adult - for ages 18 years and over) Not on file 09/15/2023 Sex and Gender Information Value Date Recorded Sex Assigned at Not on file Gender Identity Not on file Sexual Orientation Not on file Job Start Date Occupation Industry Not on file Not on file Not on file documented as of this encounter Miscellaneous Notes * Telephone Encounter - Radha Du CMA - 10/22/2023 2:54 PM EDT The forms had been put in Dr. Baig's box for him to fill out which is where the confusion came from. The original message was put in her chart and HE said he would need to see her to complete them. I have been hanging on to the forms until I spoke to Dr. Miranda or heard if she would do them. I putthe forms in her box to be completed. * Telephone Encounter - Michell Miranda MD - 10/21/2023 11:53 AM EDT The daughter does not need an appointment. I can fill out FMLA for her for her father, if that is what is being requested. Please obtain the forms. The request and information for this request shouldbe in his chart, not hers, since she needs the time off for his care. * Telephone Encounter - Renee Shannon LPN - 10/21/2023 11:27 AM EDT Patient is calling. Frustrated. Doesn't know why she needs an appointment. She needs FMLA paperwork done. Dr. Miranda signed the forms before. Doesn't know why this is such a hassle. She needs the forms before October 30. Dr. Miranda signs them every 6 months. Please send this message to her and not Dr. Baig. Dr. Miranda is her father's doctor. * Telephone Encounter - Gertrude Greene LPN - 10/19/2023 3:48 PM EDT Daughter calling, She need forms filled out for continued FMLA intermittent leave. See encounter in Susan Gandhi. Susan needs to return forms to employer by 10/30. documented in this encounter Plan of Treatment Upcoming Encounters Date Type Department Care Team (Late st Contact Info) Description 04/08/2024 4:00 PM EST Office Visit Family Medicine [address] [place] [phone] Michell Miranda MD [address] [place] [address] [place] [id number] Health Maintenance Due Date Last Done Comments Pneumococcal Vaccine: 65+ Years (1 of 2 - PCV) 1946 Albumin/Creatinine Ratio 1960 Alpha-1 Antitrypsin 1960 Zoster Vaccines (1 of 2) 1992 Depression Monitoring 01/18/2019 01/18/2018 CKD PHOS USE SMARTSET 53178 08/09/202207/28, 08/21/2020, 08/26/2018 COVID-19 Vaccine ( season) 2022 *CXR OR CT FOR COPD EVER 10/11/2023 GFR 11/06/2023 05/08/2023, 07/29, 08/09/2021, Additional history exists Influenza Vaccine (FLU shot) (#1) 2023 CKD HGB USE SMARTSET 29830 05/08/202405/08, 08/21/2021, 08/09/2021, Additional history exists O2 ASSESSMENT COMPLETED IN PAST YEAR FOR COPD 05/25/2024 05/25/2023 DTaP,Tdap,and Td Vaccines (2 - Td or Tdap) 02/06/2030 02/07/2020 (Not indicated) HPV (Gardasil) Vaccine Aged Out No lo nger eligible based on patient's age to complete this topic Hepatitis B Vaccine Aged Out No longe r eligible based on patient's age to complete this topic MENINGOCOCCAL (MENACTRA/MENVEO) Aged Out No longer eligible based on patient's age to complete this topic documented as of this encounter Medical Devices Not on filedocumented as of this encounter Advance Directives Healthcare Agents on File Name Relationship Healthcare Agent Relationshi p Communication Sara Clayton [facility] Health Care Repr esentative (appointed verbally by patient or by statute hierarchy) Susan Gandhi Adult Child Health Care Repr esentative (appointed verbally by patient or by statute hierarchy) Jacob Clayton Adult Child Health Care Repr esentative (appointed verbally by patient or by statute hierarchy) Care Teams Construction Lineman Relationship Specialty Start Date End Date Michell Miranda MD [address] [place] [address] [place] [id number] PCP - General Family Medicine 07/25/23 documented as of this encounter
[2023-10-24] MEDS: NSS + 20MEQ KCL 20 MEQ/1,000 ML BAG IV STA (00:07)
[2023-10-24] MEDS: MAGNESIUM SULFATE / D5W 1 GM/100 ML BAG IV SCH (00:07)
[2023-10-24] MEDS: METOPROLOL TARTRATE 1 MG/ML VIAL IV STA (00:07)
[2023-10-24] MEDS: SODIUM CHLORIDE 0.9% 1,000 ML IV SCH (00:23)
[2023-10-24] MEDS ORDERED: DICLOFENAC SOD 1% GEL 100 GM TUBE EXT PRN (00:28)
[2023-10-24] MEDS ORDERED: PROMETHAZINE HCL 6.25 MG in SODIUM CHLORIDE 0.9% 50 ML IV PRN (00:28)
[2023-10-24 01:41] LABS: Partial Thromboplastin Ratio 1.2; Partial Thromboplastin Time 31 Seconds (21-31)
[2023-10-24 01:59] LABS: D Dimer 1000 ug/L FEU (0-500)
[2023-10-24] MEDS ORDERED: Heparin IV Adult Wt-Based Low-Dose *NO* INITIAL Bolus Protocol IV STA (01:59)
[2023-10-24] MEDS: MAGNESIUM SULFATE / D5W 1 GM/100 ML BAG IV ONE (02:04)
[2023-10-24] MEDS: HEPARIN SODIUM/DEXTROSE 25,000 UNITS/500 ML BAG IV SCH (03:46)
--- NOTE | 2023-10-24 05:24 | Ultrasound Report ---
Exam(s): US VENOUS BILATERAL LOWER EXTREMITIES EXAM: US Duplex Bilateral Lower Extremities Veins CLINICAL HISTORY: Reason for exam: abn dimer. TECHNIQUE: Real-time duplex ultrasound scan of the bilateral lower extremity veins integrating B-mode two-dimensional vascular structure, Doppler spectral analysis, color flow Doppler imaging and compression. COMPARISON: No relevant prior studies available. FINDINGS: Right deep veins: There is deep venous thrombosis seen and 1 of the right peroneal veins. Rest of the deep veins in the left lower extremity are unremarkable. Right superficial veins: Unremarkable. No thrombus in the visualized right great saphenous vein. Left deep veins: There is nonocclusive deep venous thrombosis seen in the left common femoral vein. Rest of the left lower extremity deep venous system is unremarkable. Left superficial veins: Unremarkable. No thrombus in the visualized left great saphenous vein. Soft tissues: No acute findings. No popliteal cyst. IMPRESSION: Deep venous thrombosis in bilateral lower extremities Electronically signed by: Navid Sutton MD 10/24/23 05:22 AM
[2023-10-24] MEDS ORDERED: HEPARIN SOD 5,000 UNIT/0.5 ML VIAL SQ SCH (06:00)
--- NOTE | 2023-10-24 07:44 | Electrocardiogram Report ---
Test Reason : Blood Pressure : / mmHG Vent. Rate : 102 BPM Atrial Rate : 102 BPM P-R Int : 148 ms QRS Dur : 084 ms QT Int : 334 ms P-R-T Axes : 082 089 027 degrees QTc Int : 435 ms Sinus tachycardia with Premature supraventricular complexes Poor R wave progression, consider anterior [place] vs. lead placement vs. LVH When compared with ECG of 14-APR-2023 01:09, Premature supraventricular complexes are now Present Vent. rate has increased BY 37 BPM Confirmed by Link Burgos ([id number]) on 10/24/2023 7:44:45 AM Referred By: REFERRED SELF Confirmed By:Link Burgos
--- NOTE | 2023-10-24 07:56 | XRay Report ---
XR humerus RT 2V, XR elbow RT min 3V routine HISTORY: 83 years-old Male abnormal xrays acute pain in the right upper extremity COMPARISON: Chest radiograph today TECHNIQUE: 2 views of the right humerus with 3 views of the right elbow FINDINGS: HUMERUS: Healed chronic appearing fracture 1.4 cm lateral displacement involves the distal metadiaphyseal elder shanti without intra-articular extension. Osteoarthritis of the shoulder and elbow. ELBOW: Mild osteoarthritis with chondrocalcinosis. No acute fracture, dislocation or large joint effusion. IMPRESSION: 1. No acute fracture or dislocation. 2. Healed chronic distal humeral fracture deformity. ACT 112: Negative or not required by law. The above report was generated using voice recognition software. It may contain grammatical, syntax o r spelling errors. Electronically signed by: Anastacio Pineda M.D. 10/24/2023 7:55 AM
[2023-10-24 08:26] LABS: Hematocrit (blood only) 38.2 % (42.0-52.0); Hemoglobin 12.8 g/dl (14.0-18.0); Mean Corpuscular Hemoglobin 31.6 pg (25.0-34.0); Mean Corpuscular Hgb Conc 33.5 g/dL (32.0-36.0); Mean Corpuscular Volume 94.3 fL (80.0-100.0); Mean Platelet Volume 9.6 fL (9.4-12.4); Platelet Count 198 K/uL (130-400); RDW Coefficient of Variation 12.3 % (11.5-14.5); Red Blood Count 4.05 M/uL (4.70-6.10); White Blood Count 4.19 K/ul (4.8-10.8)
[2023-10-24 08:36] LABS: BUN Creatinine Ratio 20.2 (10-20); Calcium 8.9 mg/dl (8.6-10.3); Creatinine Clr Calc Pharmacy 37.6 ml/min; Est GFR (Non-African American) 56.9 ml/min; Magnesium 2.1 mg/dl (1.7-2.4); Phosphorus 2.9 mg/dl (2.5-4.9); Potassium 4.3 mmol/L (3.5-5.1)
--- NOTE | 2023-10-24 08:49 | XRay Report ---
XR chest 1V portable HISTORY: 83 years-old Male Sepsis COMPARISON: Chest CT 03/23/2022 TECHNIQUE: AP view the chest FINDINGS: Cardiac silhouette is enlarged. Biapical pleural parenchymal scarring redemonstrated along with mild pulmonary emphysema. Mild reticulonodular densities are again noted. Chronic right distal humeral fra cture. IMPRESSION: 1. No acute process. 2. Mild reticular nodular densities redemonstrated suggestive of a chronic infectious or inflammatory bronchiolitis. 3. biapical pleural parenchymal scarring redemonstrated ACT 112: Negative or not required by law. The above report was generated using voice recognition software. It may contain grammatical, syntax o r spelling errors. Electronically signed by: Anastacio Pineda M.D. 10/24/2023 8:48 AM
[2023-10-24] MEDS: ASPIRIN 81 MG ECTAB PO SCH (09:46)
--- NOTE | 2023-10-24 10:43 | Hospitalist Progress Note ---
Date of Service October 24, 2023 Assessment & Plan (1) Hypoxemia: Plan Pt is a 83yoM with medical history significant for CAD status post stent, history of cardiac arrest as per records, mild TR, hypertension, COPD, IBD, GERD, PUD, chronic anemia (baseline hemoglobin of 12), urolithiasis, anxiety/mood disorder, chronic hip pain from avascular necrosis, chronic neuropathy, past tobacco abuse presenting with concern for fever, chills and weakness at home. COVID infection Acute hypoxic Respiratory Failure Possible PE Transient hypoxemia in the setting of COVID-19 illness History COPD D-dimer of 1000 Possible pulmonary embolism given abnormal dimer. Patient refused CT chest recommendation stating he does not like going into machines. however noted severe contrast allergy in the chart V/Q scan pending instead of CTA due to allergy Continue IV heparin Supportive management for COVID-19 illness for now Continue to monitor acute DVT Doppler US noting dvt in bilat lower extremities Cont IV heparin sinus tachycardia PVCS Noted on EKG V/Q scan pending as above Echo pending in setting of above and to rule out heart strain with PE Continue to monitor on telemetry Anemia Hgb chronically low Am anemia panel Continue to monitor Hypertension elevated secondary to illness Patient currently not on maintenance medications. Patient previously on Coreg which was discontinued because of bradycardia on review of outpatient cardiology records. Initiate low-dose beta-judy if with persistent BP elevation given PVCs on EKG Hyperglycemia AM hgba1c hx CAD status post stent mild TR Stable IBD chronic diarrhea symptoms hx GERD/PUD not on maintenance medications chronic anemia hemoglobin at baseline anxiety/mood disorder some anxiety during exam Diet: HH/lactose intolerant Dispo: PT OT eval for further recs DVT prophylaxis. Heparin Full code Admission and Anticipated Discharge Date Admission Date: October 23, 2023 Subjective pt was seen laying in bed. Denied acute concerns. Now agreeable to further imaging. Denied pain in lower extremities Review of Systems Review of Systems: All systems reviewed & are unremarkable except as noted in Subjective Physical Exam Physical Exam: General: Alert, oriented. No acute distress Skin: No noted rashes or bruises Psych: Appropriate mood and affect Neuro: No gross deficits HEENT: NC/AT CV: RRR Resp: Breath sounds decreased bilaterally, no increased effort of breathing. Abdomen:Soft, nontender Extremities: No edema in lower extremities bilaterally. No erythema, nontender to palpation Results & Data Results & Data Vital Signs (Past 12 Hours) Vital Signs Pulse Pulse Resp BP BP Pulse Ox Pulse Ox 10/24/23 08:00 62 20 160/93 H 97 10/24/23 07:05 67 10/24/23 05:24 96 10/24/23 05:00 61 18 154/107 H 97 10/24/23 02:00 65 18 119/85 95 10/24/23 01:22 72 107/57 L 10/24/23 01:00 65 18 107/57 L 93 10/24/23 00:00 98 H 17 118/67 95 10/23/23 23:44 106 H O2 Del Method O2 Del Method 10/24/23 08:00 Room Air 10/24/23 07:05 10/24/23 05:24 Room Air 10/24/23 05:00 Room Air 10/24/23 02:00 Room Air 10/24/23 01:22 10/24/23 01:00 Room Air 10/24/23 00:00 Room Air 10/23/23 23:44 Diagnostic Findings Chest X-Ray 10/23/23 19:43 XR chest 1V portable HISTORY: 83 years-old Male Sepsis COMPARISON: Chest CT 03/23/2022 TECHNIQUE: AP view the chest FINDINGS: Cardiac silhouette is enlarged. Biapical pleural parenchymal scarring redemonstrated along with mild pulmonary emphysema. Mild reticulonodular densities are again noted. Chronic right distal humeral fracture. IMPRESSION: 1. No acute process. 2. Mild reticular nodular densities redemonstrated suggestive of a chronic infectious or inflammatory bronchiolitis. 3. biapical pleural parenchymal scarring redemonstrated ACT 112: Negative or not required by law. The above report was generated using voice recognition software. It may contain grammatical, syntax or spelling errors. Electronically signed by: Anastacio Pineda M.D. 10/24/2023 8:48 AM Elbow X-Ray 10/23/23 20:03 XR humerus RT 2V, XR elbow RT min 3V routine HISTORY: 83 years-old Male abnormal xrays acute pain in the right upper extremity COMPARISON: Chest radiograph today TECHNIQUE: 2 views of the right humerus with 3 views of the right elbow FINDINGS: HUMERUS: Healed chronic appearing fracture 1.4 cm lateral displacement involves the distal metadiaphyseal humerus without intra-articular extension. Osteoarthritis of the shoulder and elbow. ELBOW: Mild osteoarthritis with chondrocalcinosis. No acute fracture, dislocation or large joint effusion. IMPRESSION: 1. No acute fracture or dislocation. 2. Healed chronic distal humeral fracture deformity. ACT 112: Negative or not required by law. The above report was generated using voice recognition software. It may contain grammatical, syntax or spelling errors. Electronically signed by: Anastacio Pineda M.D. 10/24/2023 7:55 AM Humerus X-Ray 10/23/23 20:03 XR humerus RT 2V, XR elbow RT min 3V routine HISTORY: 83 years-old Male abnormal xrays acute pain in the right upper extremity COMPARISON: Chest radiograph today TECHNIQUE: 2 views of the right humerus with 3 views of the right elbow FINDINGS: HUMERUS: Healed chronic appearing fracture 1.4 cm lateral displacement involves the distal metadiaphyseal humerus without intra-articular extension. Osteoarthritis of the shoulder and elbow. ELBOW: Mild osteoarthritis with chondrocalcinosis. No acute fracture, dislocation or large joint effusion. IMPRESSION: 1. No acute fracture or dislocation. 2. Healed chronic distal humeral fracture deformity. ACT 112: Negative or not required by law. The above report was generated using voice recognition software. It may contain grammatical, syntax or spelling errors. Electronically signed by: Anastacio Pineda M.D. 10/24/2023 7:55 AM Venous Doppler Study 10/24/23 01:59 Exam(s): US VENOUS BILATERAL LOWER EXTREMITIES EXAM: US Duplex Bilateral Lower Extremities Veins CLINICAL HISTORY: Reason for exam: abn dimer. TECHNIQUE: Real-time duplex ultrasound scan of the bilateral lower extremity veins integrating B-mode two-dimensional vascular structure, Doppler spectral analysis, color flow Doppler imaging and compression. COMPARISON: No relevant prior studies available. FINDINGS: Right deep veins: There is deep venous thrombosis seen and 1 of the right peroneal veins. Rest of the deep veins in the left lower extremity are unremarkable. Right superficial veins: Unremarkable. No thrombus in the visualized right great saphenous vein. Left deep veins: There is nonocclusive deep venous thrombosis seen in the left common femoral vein. Rest of the left lower extremity deep venous system is unremarkable. Left superficial veins: Unremarkable. No thrombus in the visualized left great saphenous vein. Soft tissues: No acute findings. No popliteal cyst. IMPRESSION: Deep venous thrombosis in bilateral lower extremities Electronically signed by: Navid Sutton MD 10/24/23 05:22 AM
[2023-10-24 10:44] LABS: ANTI-Xa, UFH(UnfractionatedHep 0.29 IU/ml (0.3-0.7)
[2023-10-24] MEDS: ACETAMINOPHEN 325 MG TAB PO PRN (14:59)
[2023-10-24 20:17] LABS: ANTI-Xa, UFH(UnfractionatedHep 0.38 IU/ml (0.3-0.7)
[2023-10-24] MEDS: METOPROLOL TARTRATE 25 MG TAB PO SCH (23:23)
[2023-10-25] MEDS: HYDROCODONE/ACETAMOPHEN 5/325MG TAB PO PRN
[2023-10-25] MEDS: ALBUT/IPRATROP 3MG/0.5MG NEB 3 ML VIAL NEB STA (00:02)
[2023-10-25 06:00] LABS: Basophils # (auto) 0.04 K/uL (0.00-0.20); Basophils % (auto) 0.9 %; Eosinophils # (auto) 0.32 K/uL (0.00-0.50); Eosinophils % (auto) 7.5 %; Hematocrit (blood only) 34.5 % (42.0-52.0); Hemoglobin 11.7 g/dl (14.0-18.0); Immature Granulocytes # (auto) 0.01 K/uL (0.01-0.20); Immature Granulocytes % (auto) 0.2 %; Lymphocytes # (auto) 1.69 K/uL (1.20-3.40); Lymphocytes % (auto) 39.5 %; Mean Corpuscular Hemoglobin 32.1 pg (25.0-34.0); Mean Corpuscular Hgb Conc 33.9 g/dL (32.0-36.0); Mean Corpuscular Volume 94.5 fL (80.0-100.0); Mean Platelet Volume 10.1 fL (9.4-12.4); Monocytes # (auto) 0.47 K/uL (0.11-0.59); Neutrophils # (auto) 1.75 K/uL (1.40-6.50); Neutrophils % (auto) 40.9 %; Platelet Count 177 K/uL (130-400); RDW Coefficient of Variation 12.2 % (11.5-14.5); RDW Standard Deviation 42.9 fL (36.4-46.3); Red Blood Count 3.65 M/uL (4.70-6.10); White Blood Count 4.28 K/ul (4.8-10.8)
[2023-10-25 06:17] LABS: Calcium 8.5 mg/dl (8.6-10.3); Creatinine Clr Calc Pharmacy 41.4 ml/min; Est GFR (African American) 74.2 ml/min; Magnesium 1.5 mg/dl (1.7-2.4); Phosphorus 2.6 mg/dl (2.5-4.9); Potassium 3.8 mmol/L (3.5-5.1)
[2023-10-25 06:22] LABS: ANTI-Xa, UFH(UnfractionatedHep 0.43 IU/ml (0.3-0.7)
[2023-10-25 06:36] LABS: Ferritin 89.6 ng/ml (8-388)
[2023-10-25 06:41] LABS: Folate (Folic Acid),Ser orPlas > 22.30 ng/ml (>5.38)
[2023-10-25 06:42] LABS: Vitamin B12 159 pg/ml (180-914)
[2023-10-25 07:31] LABS: Estimated Average Glucose 126 mg/dl
[2023-10-25] MEDS: MAGNESIUM SULFATE / D5W 1 GM/100 ML BAG IV SCH (12:59)
--- NOTE | 2023-10-25 14:23 | Hospitalist Progress Note ---
Date of Service October 25, 2023 Assessment & Plan (1) Hypoxemia: Plan Pt is a 83yoM with medical history significant for CAD status post stent, history of cardiac arrest as per records, mild TR, hypertension, COPD, IBD, GERD, PUD, chronic anemia (baseline hemoglobin of 12), urolithiasis, anxiety/mood disorder, chronic hip pain from avascular necrosis, chronic neuropathy, past tobacco abuse presenting with concern for fever, chills and weakness at home. COVID infection Acute hypoxic Respiratory Failure Possible PE Transient hypoxemia in the setting of COVID-19 illness History COPD D-dimer of 1000 Possible pulmonary embolism given abnormal dimer. Patient refused CT chest recommendation stating he does not like going into machines. however noted severe contrast allergy in the chart V/Q scan pending instead of CTA due to allergy Continue IV heparin- transitioned to po Eliquis on 10/24 Supportive management for COVID-19 illness for now 2 step ordered Continue to monitor acute DVT Doppler US noting dvt in bilat lower extremities Cont IV heparin- transitioned to po Eliquis on 10/24 sinus tachycardia PVCS Noted on EKG V/Q scan pending as above Echo EF 50-55%, mild hypokinesis inferior wall, basal inferoseptal wall, mild TR, no pericardial effusion Cardiology consulted for echo findings, likely old MD Was started on metoprolol, low dose PONCHO and atorvastatin with baby aspirin Continue to monitor on telemetry Anemia Hgb chronically low Am anemia panel Continue to monitor Hypertension elevated secondary to illness Patient currently not on maintenance medications. Patient previously on Coreg which was discontinued because of bradycardia on review of outpatient cardiology records. Continue metoprolol, low dose PONCHO Continue to monitor Prediabetes hgba1c of 6.0 PCP followup hx CAD status post stent mild TR Stable IBD chronic diarrhea symptoms hx GERD/PUD not on maintenance medications chronic anemia hemoglobin at baseline anxiety/mood disorder some anxiety during exam Diet: HH/lactose intolerant Dispo: PT OT eval for further recs DVT prophylaxis. Heparin Full code Admission and Anticipated Discharge Date Admission Date: October 23, 2023 Subjective pt was seen laying in bed. Denied acute concerns. anxious for discharge but agreeable to staying one more day for needed v/q scan. Review of Systems Review of Systems: All systems reviewed & are unremarkable except as noted in Subjective Physical Exam Physical Exam: General: Alert, oriented. No acute distress Skin: No noted rashes or bruises Psych: Appropriate mood and affect Neuro: No gross deficits HEENT: NC/AT CV: RRR Resp: Breath sounds decreased bilaterally, no increased effort of breathing. Abdomen:Soft, nontender Extremities: No edema in lower extremities bilaterally. No erythema, nontender to palpation Results & Data Results & Data Vital Signs (Past 12 Hours) Vital Signs Temp Pulse Resp BP Pulse Ox Pulse Ox O2 Del Method 10/25/23 13:12 97 10/25/23 11:15 36.5 C 67 18 144/89 H 96 Room Air 10/25/23 10:13 Room Air 10/25/23 08:25 36.8 C 60 16 132/68 95 Room Air
[2023-10-25] MEDS: MAGNESIUM OXIDE 400 MG TAB PO SCH (14:37)
[2023-10-25] MEDS: lisinopril 5 MG TAB PO SCH (18:24)
[2023-10-25] MEDS: APIXABAN 5 MG TABLET PO SCH (19:40)
[2023-10-26] MEDS: ATORVASTATIN 40 MG TAB PO SCH (08:30)
[2023-10-26 08:32] LABS: Basophils # (auto) 0.03 K/uL (0.00-0.20); Basophils % (auto) 0.6 %; Eosinophils # (auto) 0.45 K/uL (0.00-0.50); Eosinophils % (auto) 9.6 %; Hematocrit (blood only) 35.7 % (42.0-52.0); Hemoglobin 11.7 g/dl (14.0-18.0); Immature Granulocytes # (auto) 0.01 K/uL (0.01-0.20); Immature Granulocytes % (auto) 0.2 %; Lymphocytes # (auto) 1.85 K/uL (1.20-3.40); Lymphocytes % (auto) 39.5 %; Mean Corpuscular Hemoglobin 31.1 pg (25.0-34.0); Mean Corpuscular Hgb Conc 32.8 g/dL (32.0-36.0); Mean Corpuscular Volume 94.9 fL (80.0-100.0); Mean Platelet Volume 10.1 fL (9.4-12.4); Monocytes # (auto) 0.39 K/uL (0.11-0.59); Monocytes % (auto) 8.3 %; Neutrophils # (auto) 1.95 K/uL (1.40-6.50); Neutrophils % (auto) 41.8 %; Platelet Count 193 K/uL (130-400); RDW Coefficient of Variation 12.4 % (11.5-14.5); RDW Standard Deviation 43.2 fL (36.4-46.3); Red Blood Count 3.76 M/uL (4.70-6.10); White Blood Count 4.68 K/ul (4.8-10.8)
[2023-10-26 08:46] LABS: BUN Creatinine Ratio 23.8 (10-20); Calcium 8.7 mg/dl (8.6-10.3); Creatinine Clr Calc Pharmacy 41.8 ml/min; Est GFR (African American) 80.5 ml/min; Est GFR (Non-African American) 69.4 ml/min; Magnesium 1.6 mg/dl (1.7-2.4); Phosphorus 2.5 mg/dl (2.5-4.9)
[2023-10-26] MEDS: ALBUT/IPRATROP 3MG/0.5MG NEB 3 ML VIAL NEB PRN (09:55)
[2023-10-26] MEDS: MAGNESIUM SULFATE / D5W 1 GM/100 ML BAG IV SCH (10:54)
--- NOTE | 2023-10-26 12:12 | Nuclear Medicine Report ---
NM pul perfusion HISTORY: 83 years-old Male r/o PE, contrast allergy fusion with breath with positive DVT COMPARISON: Doppler study 10/24/2023, chest radiograph 10/23/2023, chest CT 03/23/2022 TECHNIQUE: Perfusion study was obtained with IV administration of 5.6 mCi technetium 99 MAA administe red via the left upper extremity. FINDINGS: No ventilation images were obtained secondary to institutional protocol. There are numerous moderate to large segmental perfusion defects noted within the bilateral lungs with a multilobar distribution. It is unknown if these are matched or mismatched defects. IMPRESSION: High probability for pulmonary embolus. ACT 112: Negative or not required by law. The above report was generated using voice recognition software. It may contain grammatical, syntax o r spelling errors. Electronically signed by: Anastacio Pineda M.D. 10/26/2023 12:10 PM
--- NOTE | 2023-10-26 13:55 | Discharge Summary ---
Discharge Summary Date of Service October 26, 2023 Principal Dx & Hospital Course #1 = Principal Diagnosis (1) Hypoxemia: Plan Pt is a 83yoM with medical history significant for CAD status post stent, history of cardiac arrest as per records, mild TR, hypertension, COPD, IBD, GERD, PUD, chronic anemia (baseline hemoglobin of 12), urolithiasis, anxiety/mood disorder, chronic hip pain from avascular necrosis, chronic neuropathy, past tobacco abuse presenting with concern for fever, chills and weakness at home. COVID infection Acute hypoxic Respiratory Failure Possible PE Transient hypoxemia in the setting of COVID-19 illness History COPD D-dimer of 1000 Doppler US noting dvt in bilat lower extremities Possible pulmonary embolism given abnormal dimer. Patient refused CT chest recommendation stating he does not like going into machines. Also noted severe contrast allergy in the chart V/Q scan pending instead of CTA due to allergy- noted high probability of PE Treated IV heparin- transitioned to po Eliquis on 10/24 -Pt given Eliquis coupon on discharge. Family aware Supportive management for COVID-19 illness 2 step ordered noted no oxygen need Pt declined working with PT/OT stating he has family at home to care for him Close PCP followup after discharge Acute DVT Doppler US noting dvt in bilat lower extremities IV heparin- transitioned to po Eliquis on 10/24 Continue PO Eliquis after discharge PCP followup sinus tachycardia PVCS Noted on EKG V/Q scan noting possible PE as above Echo EF 50-55%, mild hypokinesis inferior wall, basal inferoseptal wall, mild TR, no pericardial effusion Per Cardiology echo findings known, old OH Was started on metoprolol, low dose PONCHO and atorvastatin with baby aspirin Pt reportedly followed with cardiology in the past. Not currently on cardiac meds PCP and Cardiology followup after discharge Hypertension elevated secondary to illness Patient currently not on maintenance medications. Patient previously on Coreg which was discontinued because of bradycardia on review of outpatient cardiology records. Continue metoprolol tartrate 12.5mg BID, low dose PONCHO lisinopril 5mg daily added PCP and cardiology followup Anemia B12 deficiency Hgb chronically low Anemia panel with noted normal iron and folate levels B12 level low discharged with b12 supplements 1000mcg daily Continue to monitor PCP followup Prediabetes hgba1c of 6.0 PCP followup hx CAD status post stent mild TR Stable IBD chronic diarrhea symptoms Stable hx GERD/PUD not on maintenance medications chronic anemia hemoglobin at baseline anxiety/mood disorder some anxiety during exam Notes For Next Care Provider please ensure compliance with anticoagulation please ensure followup with Cardiology Medication Changes From Visit po Eliquis aspirin 81mg daily metoprolol tartrate 12.5mg BID lisinopril 5mg daily atorvastatin 40mg daily Admission HPI Per Admitting Provider History obtained from patient, family, and records. 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 Last confinement February 2022 for COPD exacerbation secondary to influenza pneumonia. Few days history of generalized weakness associated with diarrhea symptoms. Poor appetite. Increasing weakness. Fever and chills noted. Patient denies chest pain, SOB, cough symptoms. No leg pain/swelling Not sure about sick contacts as he gets home visits from nurses as per family. Patient brought to ER for evaluation. Transient O2 sats of 80s on room air documented. 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 No acute distress Skin: No noted rashes or bruises Psych: Appropriate mood and affect Neuro: No gross deficits HEENT: NC/AT CV: RRR Resp: Breath sounds decreased bilaterally, no increased effort of breathing. Abdomen:Soft, nontender Extremities: No edema in lower extremities bilaterally. No erythema, lower extremities nontender to palpation Updated Medication List Medication Instructions Recorded Confirmed Type albuterol sulfate 0.63 mg/3 mL 0.63 mg inhalation QID PRN 05/17/21 07/26/24 History solution for nebulization Shortness Of Breath cyanocobalamin (vitamin B-12) 1,000 mcg IM Q4WK 08/13/20 10/23/23 History 1,000 mcg/mL injection solution ipratropium 20 mcg-albuterol 100 1 puff inhalation QID PRN 08/13/20 10/23/23 History mcg/actuation mist for inhalation Shortness Of Breath Or Wheezing (Combivent Respimat) nitroglycerin 0.4 mg sublingual 0.4 mg sublingual DIRECTED PRN 08/13/20 10/23/23 History tablet Chest Pain acetaminophen 650 mg 1,300 mg PO Q12H PRN Pain 10/23/23 10/23/23 History tablet,extended release (Tylenol Arthritis Pain) diclofenac sodium 1 % topical gel 4 g topical HS PRN .affected area 10/23/23 10/23/23 History lidocaine 4 % topical patch 1 patch topical DAILY PRN Pain 10/23/23 10/23/23 History apixaban 5 mg tablet (Eliquis) See Rx Instructions .Route 10/26/23 Rx .COMPLEX #66 tabs aspirin 81 mg tablet,delayed 81 mg PO DAILY #30 tabs 10/26/23 Rx release atorvastatin 40 mg tablet 40 mg PO QAM #30 tabs 10/26/23 Rx cyanocobalamin (vitamin B-12) 1,000 mcg PO DAILY #30 tabs 10/26/23 Rx 1,000 mcg tablet lisinopril 5 mg tablet (Zestril) 5 mg PO QAM #30 tabs 10/26/23 Rx metoprolol tartrate 25 mg tablet 12.5 mg (1/2 x 25 mg) PO BID #30 10/26/23 Rx tabs Hospital Stay Data Consultations 10/23/23 22:01 ED Decision to Admit Stat Diagnostic Imagining Performed 10/24/23 01:59 US venous doppler LE BI Stat Chest X-Ray 10/23/23 19:43 XR chest 1V portable HISTORY: 83 years-old Male Sepsis COMPARISON: Chest CT 03/23/2022 TECHNIQUE: AP view the chest FINDINGS: Cardiac silhouette is enlarged. Biapical pleural parenchymal scarring redemonstrated along with mild pulmonary emphysema. Mild reticulonodular densities are again noted. Chronic right distal humeral fracture. IMPRESSION: 1. No acute process. 2. Mild reticular nodular densities redemonstrated suggestive of a chronic infectious or inflammatory bronchiolitis. 3. biapical pleural parenchymal scarring redemonstrated ACT 112: Negative or not required by law. The above report was generated using voice recognition software. It may contain grammatical, syntax or spelling errors. Electronically signed by: Anastacio Pineda M.D. 10/24/2023 8:48 AM Elbow X-Ray 10/23/23 20:03 XR humerus RT 2V, XR elbow RT min 3V routine HISTORY: 83 years-old Male abnormal xrays acute pain in the right upper extremity COMPARISON: Chest radiograph today TECHNIQUE: 2 views of the right humerus with 3 views of the right elbow FINDINGS: HUMERUS: Healed chronic appearing fracture 1.4 cm lateral displacement involves the distal metadiaphyseal humerus without intra-articular extension. Osteoarthritis of the shoulder and elbow. ELBOW: Mild osteoarthritis with chondrocalcinosis. No acute fracture, dislocation or large joint effusion. IMPRESSION: 1. No acute fracture or dislocation. 2. Healed chronic distal humeral fracture deformity. ACT 112: Negative or not required by law. The above report was generated using voice recognition software. It may contain grammatical, syntax or spelling errors. Electronically signed by: Anastacio Pineda M.D. 10/24/2023 7:55 AM Humerus X-Ray 10/23/23 20:03 XR humerus RT 2V, XR elbow RT min 3V routine HISTORY: 83 years-old Male abnormal xrays acute pain in the right upper extremity COMPARISON: Chest radiograph today TECHNIQUE: 2 views of the right humerus with 3 views of the right elbow FINDINGS: HUMERUS: Healed chronic appearing fracture 1.4 cm lateral displacement involves the distal metadiaphyseal humerus without intra-articular extension. Osteoarthritis of the shoulder and elbow. ELBOW: Mild osteoarthritis with chondrocalcinosis. No acute fracture, dislocation or large joint effusion. IMPRESSION: 1. No acute fracture or dislocation. 2. Healed chronic distal humeral fracture deformity. ACT 112: Negative or not required by law. The above report was generated using voice recognition software. It may contain grammatical, syntax or spelling errors. Electronically signed by: Anastacio Pineda M.D. 10/24/2023 7:55 AM Venous Doppler Study 10/24/23 01:59 Exam(s): US VENOUS BILATERAL LOWER EXTREMITIES EXAM: US Duplex Bilateral Lower Extremities Veins CLINICAL HISTORY: Reason for exam: abn dimer. TECHNIQUE: Real-time duplex ultrasound scan of the bilateral lower extremity veins integrating B-mode two-dimensional vascular structure, Doppler spectral analysis, color flow Doppler imaging and compression. COMPARISON: No relevant prior studies available. FINDINGS: Right deep veins: There is deep venous thrombosis seen and 1 of the right peroneal veins. Rest of the deep veins in the left lower extremity are unremarkable. Right superficial veins: Unremarkable. No thrombus in the visualized right great saphenous vein. Left deep veins: There is nonocclusive deep venous thrombosis seen in the left common femoral vein. Rest of the left lower extremity deep venous system is unremarkable. Left superficial veins: Unremarkable. No thrombus in the visualized left great saphenous vein. Soft tissues: No acute findings. No popliteal cyst. IMPRESSION: Deep venous thrombosis in bilateral lower extremities Electronically signed by: Navid Sutton MD 10/24/23 05:22 AM Pulmonary Perfusion Imaging 10/26/23 10:28 NM pul perfusion HISTORY: 83 years-old Male r/o PE, contrast allergy fusion with breath with positive DVT COMPARISON: Doppler study 10/24/2023, chest radiograph 10/23/2023, chest CT 03/23/2022 TECHNIQUE: Perfusion study was obtained with IV administration of 5.6 mCi technetium 99 MAA administered via the left upper extremity. FINDINGS: No ventilation images were obtained secondary to institutional protocol. There are numerous moderate to large segmental perfusion defects noted within the bilateral lungs with a multilobar distribution. It is unknown if these are matched or mismatched defects. IMPRESSION: High probability for pulmonary embolus. ACT 112: Negative or not required by law. The above report was generated using voice recognition software. It may contain grammatical, syntax or spelling errors. Electronically signed by: Anastacio Pineda M.D. 10/26/2023 12:10 PM Discharge Instructions Given to Patient (Per Discharging Provider) Mr. Clayton, You are being discharged home to the care of your family. We treated you for blood clots in your lungs and lower extremities with a blood thinner. We are discharging you home with the oral version, Eliquis. Please use the coupon we gave you at the pharmacy to help you with the cost. Please take the medication as prescribed starting tonight after your discharge. We also provided supportive treatment for your covid infection. Testing revealed that you did not need oxygen. We also re-started your heart medications (baby aspirin, atorvastatin, metoprolol and lisinopril). They will help protect your heart given your history of heart attack and help with your blood pressure. Please keep close followup with Cardiology after discharge. Your b12 level was also low so we gave you a supplement to help with that. Please keep close follow up with your primary care provider after discharge. Please do not hesitate to come back to the emergency room if your symptoms worsen or return. It was a pleasure taking care of you while you were here. Total Time Total Time Spent Total Time Spent (In Minutes): 65
== END 2023-10-26 17:38 | disposition home or self-care (01) | DRG 177 ==
LOC: ED 19:25 → EDINP 23:33 → 2W 10-24 21:51